=== PATIENT | female | born 1960 | race Caucasian/White ===

== ENCOUNTER 2020-04-21 14:56 | Outpatient (REF) | payer OTHER, SELFPAY ==
--- NOTE | 2020-04-21 | US_ITS ---
EXAMINATION: US DIAGNOSTIC ULTRASOUND BREAST, RIGHT CLINICAL INFORMATION: Six-month follow up question fat necrosis. COMPARISON: September 15, 2019 and studies dating back to September 07, 2011. TECHNIQUE: Ultrasound of the breast is performed with real-time linares scale imaging and color Doppler. FINDINGS: Right breast ultrasound again demonstrates a stable approximately 8 x 7 mm heterogeneous echotexture structure with hyperechoic outer rim and hypoechoic central region with some sound shadowing and again with the appearance of fat necrosis. Results are discussed with the patient at time of visit. US/US breast RT limited IMPRESSION: There are no significant changes from prior study. Stable probably region of fat necrosis right breast. ASSESSMENT: BI-RADS 2: Benign RECOMMENDATION: Routine annual mammography screening due in 12 months.
--- NOTE | 2020-04-21 | US_ITS ---
EXAMINATION: US DIAGNOSTIC ULTRASOUND BREAST, LEFT CLINICAL INFORMATION: Question increasing density of left breast lesion upper outer aspect. COMPARISON: Mammography of same day and studies dating back to July 12, 2008. TECHNIQUE: Ultrasound of the breast is performed with real-time linares scale imaging and color Doppler. FINDINGS: Left breast ultrasound examination targeted to the upper outer aspect performed. At the 2:00 position approximately 9 cm from nipple there is an isoechoic circumscribed structure measuring approximately 6 x 7 x 4 mm in size without distal sound shadowing which is wider than it is tall and without internal vascularity. At approximately 2:00 position 5 cm from nipple there is a bilobed hypoechoic structure with some increased through sound transmission and no internal vascularity. No distal sound shadowing. The lesion is wider than it is tall. This does not have the appearance of an abnormal lymph node. Results are discussed with the patient at time of visit. US/US breast LT limited IMPRESSION: There are no significant changes from prior study. Benign-appearing stable in size left breast densities. ASSESSMENT: BI-RADS 2: Benign RECOMMENDATION: Routine annual mammography screening due in 12 months. .
--- NOTE | 2020-04-21 15:03 | MM_ITS ---
EXAMINATION: MM DIAGNOSTIC DIGITAL BREAST TOMOSYNTHESIS, BILATERAL US BREAST TARGETED, BILATERAL CLINICAL INFORMATION: Right breast followup of density. Screening left breast study. The lifetime risk of breast cancer based on the Tyrer-Cuzick Model is 4.8%. COMPARISON: Mammography: 09/15/2019 and studies dating back to 04/22/2006. TECHNIQUE: Digital breast tomosynthesis is performed in both the craniocaudal and mediolateral oblique views along with computer-aided detection (CAD). Synthesized 2D images are generated from the tomosynthesis. Bilateral targeted breast ultrasound. FINDINGS: There are scattered areas of fibroglandular density (ACR BI-RADS breast composition Category b). There is a stable parenchymal pattern within the right breast with no significant change of density within the anterior lateral aspect of the right breast. No new abnormal dominant mass or suspicious grouping of microcalcifications identified. Within the left breast there are again noted to be two densities about the upper outer aspect however the more proximal one appears denser than on prior studies and with a smaller notch than seen previously and if this is a lymph node there may be thickened cortex. The smaller deeper one measures approximately 5 x 4 mm in size with the more proximal question denser lesion measuring 9 x 5 mm in size. No new abnormal dominant mass or suspicious grouping of microcalcifications identified. Right breast ultrasound again demonstrates a stable approximately 8 x 7 mm heterogeneous echotexture structure with hyperechoic outer rim and hypoechoic central region with some sound shadowing and again with the appearance of fat necrosis. Left breast ultrasound examination targeted to the upper outer aspect performed. At the 2 o'clock position approximately 9 cm from the nipple there is an isoechoic circumscribed structure measuring approximately 6 x 7 x 4 mm in size without distal sound shadowing which is wider than it is tall and without internal vascularity. At approximately 2 o'clock position 5 cm from nipple there is a bilobed hypoechoic structure with some increased through sound transmission and no internal vascularity. No distal sound shadowing. The lesion is wider than it is tall. This does not have the appearance of an abnormal lymph node. Results are discussed with the patient at time of visit. MM/MM tomosynthesis diagnostic BI IMPRESSION: There are no significant changes from prior study. Stable probably region of fat necrosis right breast. Benign-appearing stable in size left breast densities. ASSESSMENT: BI-RADS 2: Benign RECOMMENDATION: Routine annual mammography screening due in 12 months. This patient's information was entered into a reminder system with a target due date for their next mammogram.
== END 2020-04-21 14:57 | disposition home or self-care (01) ==
LOC: HO.MAMMO 14:56
PROVIDERS: Visit Provider Internal Medicine
DX: R92.2 Inconclusive mammogram (principal)
CPT/HCPCS: 76642; 77062; 77066

== ENCOUNTER 2020-05-21 07:14 | Outpatient (REF) | payer OTHER, SELFPAY ==
[2020-05-21 07:56] LABS: MANUAL DIFF FLAG NO
[2020-05-21 08:01] LABS: Basophils Percent Auto 0.6 % (0-2); Eosinophils Absolute Auto 0.3 X10*3/uL (0.0-0.4); Eosinophils Percent Auto 5.1 % (0-4); Hematocrit 44.1 % (37-47); Hemoglobin 14.1 g/dl (12.0-16.0); Imm Gran Abs Auto 0.01 X10*3/uL (0.00-0.03); Imm Gran Pct Auto 0.2 % (0.0-0.4); Lymphocytes Absolute Auto 1.8 X10*3/uL (1.2-4.9); Lymphocytes Percent Auto 28.6 % (20-40); Mean Corpuscular Hemoglobin 28.8 pg (27.0-33.0); Mean Corpuscular Volume 90.2 fL (80-98); Mean Platelet Volume 9.5 fL (9.4-12.3); Monocytes Absolute Auto 0.6 X10*3/uL (0.1-1.2); Monocytes Percent Auto 10.1 % (2-11); Neutrophils Absolute Auto 3.5 X10*3/uL (2.0-8.3); Neutrophils Percent Auto 55.4 % (45-73); Platelet Count 334 X10*3/uL (160-400); Red Blood Count 4.89 X10*6/uL (4.20-5.50); White Blood Count 6.3 X10*3/uL (4.8-10.8)
[2020-05-21 08:16] LABS: Glucose Urine UA NEG (NEG); Leukocyte Esterase Urine NEG (NEG); Nitrite Urine NEG (NEG); PH 5.5 (5.0-8.0); Specific Gravity - Urine >= 1.030 (1.005-1.025); Urine Blood 1+ (NEG); Urine Ketones NEG (NEG); Urine Protein NEG (NEG-TRACE)
[2020-05-21 08:27] LABS: Alanine Aminotransferase 16 U/L (0-31); Alkaline Phosphatase 89 U/L (39-117); Anion Gap 13 (12-20); Aspartate Amino Transferase 18 U/L (5-31); Bilirubin Total 1.1 mg/dL (0.0-1.0); Blood Urea Nitrogen 16 mg/dL (9-16); Carbon Dioxide 26 mmol/L (22-29); Chloride 105 mmol/L (96-108); Cholesterol 203 mg/dL; Estimated Glomerular Filt Rate > 60; Glucose Fasting 99 mg/dL (60-99); HDL Cholesterol 62 mg/dL; LDL Cholesterol Calculated 128 mg/dl; Potassium 4.4 mmol/L (3.3-5.1); Sodium 140 mmol/L (135-145); Triglycerides 67 mg/dL
[2020-05-21 08:45] LABS: Appearance Urine CLEAR; Color Urine YELLOW
[2020-05-21 08:47] LABS: Mucus Urine TRACE /LPF; WBC Urine 0-2 /HPF (0-4)
[2020-05-21 08:49] LABS: TSH reflex Free T4 1.42 uIU/mL (0.32-4.0); Vitamin D 25-OH Total 29.6 ng/mL (>30)
== END 2020-05-21 07:15 | disposition home or self-care (01) ==
LOC: HO.LAB 07:14
PROVIDERS: PCP Internal Medicine; Visit Provider Internal Medicine
DX: Z00.00 Encounter for general adult medical examination without abnormal findings (principal); I10 Essential (primary) hypertension; E78.00 Pure hypercholesterolemia, unspecified; E66.9 Obesity, unspecified; E55.9 Vitamin D deficiency, unspecified
CPT/HCPCS: 36415; 80053; 80061; 81001; 81003; 82306; 84443; 85025

== ENCOUNTER 2020-07-27 16:59 | Outpatient (REF) | payer OTHER, SELFPAY ==
--- NOTE | ~2020-07-27 | XR_ITS ---
EXAMINATION: XR KNEE, RIGHT CLINICAL INFORMATION: Knee pain. COMPARISON: 06/30/2011 TECHNIQUE: Four views of the right knee. FINDINGS: No fracture or joint effusion. Alignment is anatomic. Marginal osteophytes in 3 compartments. Apparent patellofemoral joint space narrowing. No abnormal soft tissue calcification. Patellar enthesopathy at the insertions of the quadriceps and patellar tendon. Small effusion. XR/XR knee RT 4V IMPRESSION: Mild tricompartment arthritis. Small effusion. No acute osseous abnormality is seen.
== END 2020-07-27 17:00 | disposition home or self-care (01) ==
LOC: HO.HMGCX 16:59
PROVIDERS: PCP Internal Medicine; Visit Provider Nurse Practitioner Family
DX: M25.561 Pain in right knee (principal)
CPT/HCPCS: 73564

== ENCOUNTER → 2020-11-01 09:26 | Outpatient (BNVA) | payer OTHER, SELFPAY | PROVIDERS: PCP Internal Medicine; Visit Provider Advanced Practice Midwife ==

== ENCOUNTER 2021-04-24 14:30 | Outpatient (REF) | payer OTHER, SELFPAY ==
--- NOTE | ~2021-04-24 | MM_ITS ---
EXAMINATION: MM SCREENING DIGITAL BREAST TOMOSYNTHESIS, BILATERAL CLINICAL INFORMATION: Screening. Asymptomatic. Family history breast cancer, mother. The lifetime risk of breast cancer based on the Tyrer-Cuzick Model is 10%. COMPARISON: Mammography: 04/21/2020, 09/15/2019, 03/17/2019 (BI-RADS 0), 02/02/2017, 01/21/2016; targeted ultrasound right breast 04/21/2020, 09/15/2019, 03/17/2019. TECHNIQUE: Digital breast tomosynthesis is performed in both the craniocaudal and mediolateral oblique views along with computer-aided detection (CAD). Synthesized 2D images are generated from the tomosynthesis. FINDINGS: There are scattered areas of fibroglandular density (ACR BI-RADS breast composition Category b). There are scattered fibronodular asymmetric densities similar to prior studies. The left breast shows no developing density or interval mass or architectural abnormality. There are no abnormal calcifications. The axilla and skin contours are unremarkable. Right breast has focal asymmetric density anterior 7:00 position, more conspicuous, possibly larger and increased attenuation. Margins are ill-defined on MLO tomography. This have been under surveillance in past. Recommend recall for additional imaging and ultrasound. MM/MM tomosynthesis screening BI IMPRESSION: 1. Right: Focal asymmetric density anterior 7:00 position, more conspicuous, suspect change from prior studies. 2. Left: No mammographic evidence of malignancy. ASSESSMENT: BI-RADS 0: Incomplete - Need Additional Imaging Evaluation RECOMMENDATION: 1. Additional views of the right breast (spot CC, spot ML). 2. Targeted ultrasound right breast. 3. Radiology department staff will contact the patient for additional imaging. This patient's information was entered into a reminder system with a target due date for their next mammogram.
== END 2021-04-24 14:31 | disposition home or self-care (01) ==
LOC: HO.MAMMO 14:30
PROVIDERS: PCP Internal Medicine; Visit Provider Internal Medicine
DX: Z12.31 Encounter for screening mammogram for malignant neoplasm of breast (principal)
CPT/HCPCS: 77063; 77067

== ENCOUNTER 2021-05-16 13:44 | Outpatient (REF) | payer OTHER, SELFPAY ==
--- NOTE | ~2021-05-16 | MM_ITS ---
EXAMINATION: MM DIAGNOSTIC DIGITAL BREAST TOMOSYNTHESIS, RIGHT US DIAGNOSTIC ULTRASOUND BREAST, RIGHT CLINICAL INFORMATION: Recall from screening for focal asymmetric density anterior 7:00 right breast, more conspicuous, possibly larger. COMPARISON: Mammography: 04/24/2021, 04/21/2020, 09/15/2019, 03/17/2019, 03/07/2019, 03/01/2018; targeted right breast ultrasound 04/21/2020, 09/15/2019, 03/17/2019. TECHNIQUE: Digital breast tomosynthesis is performed. 2D images are generated from the tomosynthesis. The following views are obtained: Spot CC, spot ML x2. Ultrasound right breast is targeted to the lower anterior breast using grayscale imaging and color Doppler without and with harmonics. Additional imaging also performed right axilla. FINDINGS: There are scattered areas of fibroglandular density (ACR BI-RADS breast composition Category b). The additional views demonstrate lobulated mass with ill-defined margins anterior 7:00 position measuring approximately 1.0 x 0.8 cm. This represents change from prior studies. Ultrasound right breast demonstrates a 1 cm heterogeneous lesion with peripheral hyperechogenicity and irregular central echogenicity. There is color flow seen extending into the lesion. Additional imaging right axilla demonstrates no lymphadenopathy. Results are discussed with the patient at time of visit. Ultrasound-guided core biopsy of the right breast mass is recommended. MM/MM tomosynthesis added views R IMPRESSION: 1 cm lobulated mass with ill-defined margins and anterior 7:00 position. ASSESSMENT: BI-RADS 4: Suspicious RECOMMENDATION: Ultrasound-guided core biopsy right breast mass.
== END 2021-05-16 13:45 | disposition home or self-care (01) ==
LOC: HO.MAMMO 13:44
PROVIDERS: PCP Internal Medicine; Visit Provider Internal Medicine
DX: R92.2 Inconclusive mammogram (principal)
CPT/HCPCS: 76642; 77061; 77065

== ENCOUNTER 2021-05-19 09:03 | Outpatient (REF) | payer OTHER, SELFPAY ==
--- NOTE | ~2021-05-19 | MM_ITS ---
EXAMINATION: ULTRASOUND GUIDED CORE BIOPSY BREAST, RIGHT POST PROCEDURE DIGITAL MAMMOGRAM, RIGHT CLINICAL INFORMATION: Lobulated mass with ill-defined margins lower outer quadrant right breast measuring approximately 1.1 cm. COMPARISON: Mammography and and targeted right breast ultrasound 05/16/2021, mammography 04/24/2021. FINDINGS: Proper informed consent is obtained from the patient after discussion of the procedure, potential risks and complications, and alternatives. Patient was given an opportunity for questions. The patient appeared to understand. The patient consented to the procedure and signed the consent form. GUIDANCE: Ultrasound-guided; aseptic technique. LESION: 1.1 cm heterogeneous lesion with peripheral hyperechogenicity and well-defined margins on mammography. APPROACH: Lateral medial. ANESTHESIA: 10 mL carbonated 1% lidocaine. DERMATOTOMY: Single skin dayana dermatotomy performed. NEEDLE: 14-gauge Achieve core biopsy device with 13.5-gauge co-axial guide needle. CORES: 6. CLIP: HydroMARK; shape: butterfly. POST PROCEDURE UNILATERAL DIGITAL MAMMOGRAM: The post biopsy mammogram is performed in separate room using separate digital mammography equipment from the biopsy procedure. CC and MLO views are obtained. There are scattered areas of fibroglandular density (breast composition category: b). The clip marker is in position and overlies the nodule noted on recent mammography. No gross hematoma. The patient tolerated the procedure well. No immediate complications. Home instructions reviewed with the patient. Final pathology results are pending. MM/MM tomosynthesis diagnostic RT IMPRESSION: 1. Status post ultrasound-guided core biopsy right breast. 2. Clip placed: HydroMARK; shape: butterfly. 3. Pathology pending. An addendum report will be issued.
[2021-05-19] MEDS: Lidocaine HCl 1 % 20 ML VIAL 9 ML SUBCUT (11:38)
[2021-05-19] MEDS: Sodium Bicarbonate 8.4% 50 MEQ/50 ML VIAL SUBCUT (11:40)
== END 2021-05-19 09:04 | disposition home or self-care (01) ==
LOC: HO.MAMMO 09:03
PROVIDERS: Visit Provider Surgery
DX: R92.8 Other abnormal and inconclusive findings on diagnostic imaging of breast (principal)
CPT/HCPCS: 19083; 77061; 77065; 88305; 88341; 88342; 88360

== ENCOUNTER → 2021-05-26 10:41 | Outpatient (BNVA) | payer OTHER, SELFPAY | PROVIDERS: PCP Internal Medicine; Referring Provider Internal Medicine; Visit Provider Surgery ==

== ENCOUNTER 2021-06-05 06:13 | Day surgery (SDC) | payer OTHER, SELFPAY ==
[2021-06-05] VITALS (10 sets, daily range): BP systolic 105–151; BP diastolic 57–75; PULSE 62–76; RESP 10–20; TEMP 36.2–36.6; O2SAT 95–100; BMI 32.8
--- NOTE | ~2021-06-05 | MM_ITS ---
EXAMINATION: MM MAMMOGRAM GUIDED NEEDLE LOCALIZATION BREAST, RIGHT MM NEEDLE LOCALIZATION SPECIMEN FROM THE RIGHT BREAST CLINICAL INFORMATION: Recent diagnosis invasive ductal cancer outer right breast. COMPARISON: Mammography 05/16/2021, 05/19/2021, ultrasound right breast 05/16/2021, ultrasound-guided right breast biopsy 05/19/2021. TECHNIQUE NEEDLE LOC: Proper informed consent is obtained from the patient after discussion of the procedure, potential risks and complications, and alternatives including declining the procedure today. Patient was given an opportunity for questions. The patient appeared to understand. The patient consented to the procedure and signed the consent form. GUIDANCE: Digital mammography. APPROACH: Lateral Medial. TARGET: Nodular asymmetry with HydroMARK butterfly shaped clip marker. ANESTHESIA: Carbonated lidocaine 1%: 6 mL. LOCALIZATION MARKER: [place] [employer]. 7.5 cm length. The skin is prepped and local anesthesia administered. The needle is positioned and position assessed with mammography. The wire is hooked into position. [place] needle protector placed. The patient tolerated the procedure well and had no immediate complication. Following the procedure, 4% lidocaine ointment was administered to the right areola and covered with Tegaderm in anticipation of nuclear lymphoscintigraphy injection for sentinel lymph node mapping. Procedure results called to medical transcriber (Kait) for Dr. Mccarty prior to surgery. TECHNIQUE SPECIMEN RADIOGRAPH: Imaging of the excised specimen is performed using digital mammography in 1 view. FINDINGS SPECIMEN RADIOGRAPH: There is an overlying surgical, which causes artifact. The specimen shows the distal needle and distal hookwire are delivered intact within the specimen. The biopsy clip marker is identified in the specimen adjacent to the localization needle. There are fibroglandular densities in the specimen predominantly related to the known lesion. Results were called to Dr. Simón Mccarty in the operating room at the time of imaging. MM/MM needle loc RT IMPRESSION: 1. Status post right breast needle localization with wire hooked into position. 2. Post operative specimen radiograph obtained.
--- NOTE | ~2021-06-05 | NM_ITS ---
EXAMINATION: NM LYMPHOSCINTIGRAPHY BREAST, RIGHT CLINICAL INFORMATION: Invasive ductal cancer right breast. COMPARISON: Mammography 04/24/2021, 05/16/2021, 05/19/2021, needle localization 06/05/2021, ultrasound-guided right breast biopsy 05/19/2021. TECHNIQUE: Informed consent was obtained prior to the exam. Lidocaine gel administered to areola within 60 minutes of the procedure. Technetium 99m-Lymphoseek 0.5 mCi was divided into 4 syringes with intradermal administration at 4 quadrants around the areola. The patient tolerated the procedure well. Imaging is performed at 20 minutes, 35 minutes, and 60 minutes postinjection. There are total of 12 views. FINDINGS: There is strong activity around the areola. On the delayed images, there is a faint focus of activity low right axillary tail, possibly adjacent satellite focus. NM/NM sentinel node w imaging IMPRESSION: Status post breast radionuclide lymphoscintigraphy for sentinel lymph node mapping.
[2021-06-05] MEDS: Lidocaine HCl 1 % 20 ML VIAL 9 ML SUBCUT (09:22)
[2021-06-05] MEDS: Sodium Bicarbonate 8.4% 50 MEQ/50 ML VIAL SUBCUT (09:23)
--- NOTE | 2021-06-05 10:57 | P.CONAN_ITS ---
FORM[facility]LY [facility] Active Problems Active Problems: All Active Problems (Updated 06/02/21 @ 11:34 by Jus Gallardo RN) Invasive ductal carcinoma of right breast (Acute) Abnormal ultrasound of breast (Acute) Well woman exam with routine gynecological exam (Acute) Knee pain (Acute) Obesity (BMI 30-39.9) (Acute) Vitamin D deficiency (Acute) Pure hypercholesterolemia (Acute) Benign essential hypertension (Acute) Past Medical History Medical History Benign essential hypertension Obesity (BMI 30-39.9) Pure hypercholesterolemia Vitamin D deficiency Family History Family History Father Medical history unknown Mother Diabetes Hypertension Maternal Aunt Breast cancer Surgical History Surgical History History of carpal tunnel release History of cholecystectomy Status post colonoscopy (~10/22/11) History of Problems with Anesthesia: No Social History Social History Alcohol intake: current Alcohol intake frequency: holidays/special occasions only Alcohol type: wine Patient Tobacco Use Status: Never used Tobacco Use of substances other than those prescribed or required for medical reasons: No Are you DNR?: No Advance Directives: No Advance Directives Information Provided: Yes Gender identity: Female Meds Allergies Allergy/AdvReac Type Severity Reaction Status Date / Time aspirin [ASPIRIN] Allergy Mild GI UPSET, Verified 06/05/21 06:24 Stomach upset morphine [Morphine] Allergy Mild VOMITING Verified 06/05/21 06:24 Active Medications: Current Medications Lactated Ringer's (Lr) 1,000 mls @ 100 mls/hr IVCONT .Q10H [facility] Home Medications Medication Instructions Recorded Confirmed Last Taken Type ibuprofen 600 mg tablet 600 mg PO Q8H PRN tab 05/17/20 05/19/21 Unknown History cholecalciferol (vitamin D3) 25 25 mcg PO DAILY 07/27/20 05/26/21 Unknown History mcg (1,000 unit) capsule Exam Exam Date and Time: June 05, 2021 1057 Height,Weight and Vital Signs: Height 5 ft 3 in Weight 83.915 kg Last Vital Signs Temp 97.8 F 06/05/21 06:47 Pulse 64 06/05/21 06:47 Resp 17 06/05/21 06:47 BP 138/68 06/05/21 06:47 Pulse Ox 96 06/05/21 06:47 Airway Mallampati Class: II TM Dist: >3cm Neck ROM: Full Loose/Missing/Broken Teeth: No Heart: RRR Lungs: CTA Assessment and Plan Assessment Anesthesia Assessment: Anesthesia Plan Discussed and Chart Reviewed Final Anesthetic Review History of Problems with Anesthesia: No NPO: Yes ASA Class: II Final Preanesthetic Review: Meds/Allgs Chart Reviewed, Consent Obtained/Reviewed and Anes Risks/Benef Reviewed Patient Risk: Low Procedure Risk: Low Anesthetic Plan Anesthetic Plan: GA Disposition: Standard PACU
--- NOTE | 2021-06-05 11:45 | MHC.SHP ---
Pre-Procedural Eval Section A Date of Service: 06/05/21 The patient is an INPATIENT: No Changes since office visit: Yes Patient answered all questions; No Cold of Flu in the past 2 weeks, No New Medical Problems and No Changes in Medication The History & Physical has been completed within 30 days and I have reviewed it.: Yes Section B Chief Complaint: Abnormal ultrasound of breast Allergies: Allergies Allergy/AdvReac Type Severity Reaction Status Date / Time aspirin [ASPIRIN] Allergy Mild GI UPSET, Verified 06/05/21 06:24 Stomach upset morphine [Morphine] Allergy Mild VOMITING Verified 06/05/21 06:24 Plan Diagnosis/Plan: Unchanged I have reviewed the history and physical and performed a pertinent physical examination on my patient. No changes have occurred unless specified.
[2021-06-05] MEDS: Scopolamine 1.5 MG PATCH.TD.3 EAR-BEHIND (11:54)
--- NOTE | 2021-06-05 13:37 | P.OP_ITS ---
Operative Note Operative Note Date of Service: 06/05/21 Narrative: Preoperative diagnosis:Invasive ductal carcinoma right breast Postoperative diagnosis: same Procedure: right breast lumpectomy with needle localization, right sentinel node biopsy Surgeon: Simón Mccarty MD Senior Research Consultant: Erna Braun PA-C Anesthesia: general LMA Indications for procedure: 61-year-old female patient found to have a new density in right breast on mammogram confirmed on ultrasound. She subsequent underwent ultrasound-guided core biopsy which revealed invasive ductal carcinoma. She presents today for a lumpectomy with needle localization, sentinel node biopsy. Operative findings: Specimen x-ray confirmed the lesion and clip within the specimen x-ray. Gross pathology revealed a palpable density with adequate margins. Five sentinel nodes were identied and removed. Specimen: Right breast lumpectomy, sentinel node 1 through 5 Estimated blood loss: 5 mL Complications: none Procedure details: patient was brought to the OR placed in a supine position. After administering general anesthesia the patient's right breast and axilla were prepped with ChloraPrep and draped in a sterile fashion. A surgical time- out was called and the consent confirmed. Patient received preoperative antibiotics and Venodyne boots were in place. Local anesthesia consisting of Sensorcaine 0.5% was infiltrated and a periareolar location at approximately the 9 - 6 o'clock position. Curvilinear incision was made at the edge of the areola with a scalpel, carried down through subcutaneous tissue. Superior and inferior skin flaps were then created. Core of tissue surrounding the localizing needle was then obtained beginning at the superior margin working from the medial to lateral margins followed by the inferior margin and deep margin. The wire was cut at its entry point. lesion was then excised and sent to pathology for further examination. Attention was then directed to the right axilla. The gamma probe was used to identify the area of increased activity. A curvilinear incision was then made at the lower aspect of the axilla and carried down through subcutaneous tissue past the clavipectoral fascia into the axillary compartment. A total of 5 sentinel nodes were identified individually excised. These were sent as sentinel node 1 through 5. No other palpable lymph nodes were identified. No other radioactive nodes were identified. Wounds were irrigated with saline solution. Clavipectoral fascia was then closed using interrupted 3-0 Polysorb sutures. Dermis was closed using interrupted 3-0 Polysorb sutures. Skin was then closed using a running subcuticular 4-0 Polysorb suture . Once the lumpectomy was confirmed as adequate the deep breast tissue was reapproximated using interrupted 3-0 Polysorb sutures. Dermis was reapproximated using interrupted 3-0 Polysorb sutures. Skin was then closed using a running subcuticular 4-0 Polysorb suture. Steri-Strips 2 x 2 gauze and Tegaderm were then applied. The patient tolerated the procedure well. Sponge, instrument, and needle counts reported as correct. She was transferred to PACU in stable condition. Breast Warrior Node Biopsy Substrate(s) used for sentinel node biopsy in the non-neoadjuvant setting: Radiotracer Substrate(s) used for sentinel node biopsy in the neoadjuvant setting: N/A All colored nodes or non-colored nodes present at the end of a dye filled lymphatic channel were removed, if dye was used as the substrate for localization: N/A All significantly radioactive nodes were removed, if radionuclide was used as the substrate for localization: Yes All palpably suspicious nodes were removed, if present: Yes If clips were placed in pathology-involved nodes, those nodes were identified and removed: N/A General Surg. - Synoptic Notes Breast Warrior Node Biopsy Substrate(s) used for sentinel node biopsy in the non-neoadjuvant setting: Radiotracer Substrate(s) used for sentinel node biopsy in the neoadjuvant setting: N/A All colored nodes or non-colored nodes present at the end of a dye filled lymphatic channel were removed, if dye was used as the substrate for localization: N/A All significantly radioactive nodes were removed, if radionuclide was used as the substrate for localization: Yes All palpably suspicious nodes were removed, if present: Yes If clips were placed in pathology-involved nodes, those nodes were identified and removed: N/A
== END 2021-06-05 16:04 | disposition home or self-care (01) ==
PROVIDERS: PCP Internal Medicine; Visit Provider Surgery
PROC: (CPT 19301; principal; 2021-06-05 11:30)
PROC: (CPT 19301; 2021-06-05 11:30)
DX: C50.511 Malignant neoplasm of lower-outer quadrant of right female breast (principal); Z17.0 Estrogen receptor positive status [ER+]; I10 Essential (primary) hypertension; E78.00 Pure hypercholesterolemia, unspecified; E55.9 Vitamin D deficiency, unspecified; Z79.899 Other long term (current) drug therapy; Z88.8 Allergy status to other drugs, medicaments and biological substances
CPT/HCPCS: 19301; 38525; 19281; 78195; 88307; 88329; 88341; 88342; A4648; A9520; J0690; J1100; J2250; J2405; J3010

== ENCOUNTER → 2021-06-13 12:47 | Outpatient (BNVA) | payer OTHER, SELFPAY | PROVIDERS: PCP Internal Medicine; Referring Provider Internal Medicine; Visit Provider Surgery | DX: C50.911 Malignant neoplasm of unspecified site of right female breast (principal); Z48.3 Aftercare following surgery for neoplasm | CPT/HCPCS: 99212 ==

== ENCOUNTER 2021-07-04 08:37 | Outpatient (REF) | payer OTHER, SELFPAY ==
--- NOTE | ~2021-07-04 | MM_ITS ---
EXAMINATION: BONE DENSITOMETRY CLINICAL INDICATION: Osteopenia. COMPARISON: Previous BD dated 05/23/2018 and baseline BD dated 10/19/2011. TECHNIQUE: Using a [employer] DXA System (software version: 13.1) manufactured by [employer], dual-energy x-ray absorptiometry was performed of the lumbar spine and left hip. The images are of good technical quality. Summary results are attached. FINDINGS: AP SPINE L1-L4: Current: BMD 1.090 g/cm2, Z-score -0.2, T-score -0.7, normal, 1.5% increase from previous, 5.1% decrease from baseline (<5% change is not significant). Prior: BMD 1.074 g/cm2. Baseline: BMD 1.148 g/cm2. LEFT FEMUR, NECK: Current: BMD 0.907 g/cm2, Z-score -0.1, T-score -0.9, normal. Prior: BMD 0.893 g/cm2. Baseline: BMD 0.977 g/cm2. LEFT FEMUR, TOTAL: Current: BMD 0.946 g/cm2, Z-score 0.0, T-score -0.5, normal, 2.2% increase from previous, 9.0% decrease from baseline (<5% change is not significant). Prior: BMD 0.926 g/cm2. Baseline: BMD 1.040 g/cm2. IDENTIFIED RISK FACTORS: Rheumatoid arthritis, menopause. HISTORY OF FRACTURE: None listed. MEDICATIONS: Vitamin D. MM/XR DEXA axial skeleton IMPRESSION: 1. DIAGNOSIS: Normal bone density based on the lowest T-score value of -0.9 in the femoral neck applying World Health Organization criteria. 2. 10-YEAR FRACTURE RISK PREDICTION, FRAX: According to the guidelines, FRAX calculation should only be performed on patients in the osteopenia bone density category. Therefore, FRAX was not performed on this patient. 3. Treatment Recommendations: NOF guidelines recommend consideration for treatment in postmenopausal women and men age 50 and older presenting with the following: -A hip or vertebral (clinical or morphometric) fracture. -T-score less than or equal to -2.5 at the femoral neck or spine after appropriate evaluation to exclude secondary causes. -Low bone mass at the hip or spine and a 10-year fracture probability by FRAX of greater than or equal to 3% for hip fracture or greater than or equal to 20% for major osteoporotic fracture based on the [place] adapted WHO algorithm. 4. Other Recommendations: All treatment decisions require clinical judgment and consideration of individual patient factors, including patient preferences, comorbidities, previous drug use, risk factors not captured in the FRAX model (e.g. frailty, falls, vitamin D deficiency, increased bone turnover, interval significant decline in bone density) and possible under or overestimation of fracture risk by FRAX. FUTURE SCAN RECOMMENDATION: People with diagnosed cases of osteoporosis or at high risk for fracture should have regular bone mineral density tests. For patients eligible for Medicare, routine testing is allowed once every 2 years. The testing frequency can be increased to one year for patients who have rapidly progressing disease, those who are receiving or discontinuing medical therapy to restore bone mass, or have additional risk factors.
== END 2021-07-04 08:38 | disposition home or self-care (01) ==
LOC: HO.MAMMO 08:37
PROVIDERS: PCP Internal Medicine; Visit Provider Internal Medicine Medical Oncology
DX: Z13.820 Encounter for screening for osteoporosis (principal); M85.80 Other specified disorders of bone density and structure, unspecified site; Z78.0 Asymptomatic menopausal state
CPT/HCPCS: 77080

== ENCOUNTER → 2021-07-04 15:00 | Outpatient (BNV) | payer BC, OTHER, SELFPAY | PROVIDERS: PCP Internal Medicine; Referring Provider Surgery; Visit Provider Internal Medicine Medical Oncology | DX: C50.911 Malignant neoplasm of unspecified site of right female breast (principal) | CPT/HCPCS: 99213; 99214 ==

== ENCOUNTER → 2021-07-18 13:50 | Outpatient (BNVA) | payer OTHER, SELFPAY | PROVIDERS: PCP Internal Medicine; Referring Provider Internal Medicine; Visit Provider Surgery | DX: Z13.89 Encounter for screening for other disorder (principal) ==

== ENCOUNTER 2022-03-27 08:54 | Day surgery (SDC) | payer OTHER, SELFPAY ==
[2022-03-20 15:47] VITALS: BMI 34.9
--- NOTE | 2022-03-23 12:41 | HO.ANESPROP2 ---
Documented by User: Kait Renae NP 03/23/22 12:42 HPI - Anesthesia Eval Consult details Narrative: 61yo F for Colonoscopy PMFSH Active Problems Active Problems: All Active Problems (Updated 01/02/22 @ 08:09 by Hui Johnson MD) Encounter for screening colonoscopy (Acute) Cervical cancer screening (Acute) Physical exam (Acute) Invasive ductal carcinoma of right breast (Acute) Abnormal ultrasound of breast (Acute) Well woman exam with routine gynecological exam (Acute) Knee pain (Acute) Obesity (BMI 30-39.9) (Acute) Vitamin D deficiency (Acute) Pure hypercholesterolemia (Acute) Benign essential hypertension (Acute) Past Medical History Medical History Benign essential hypertension Breast cancer Obesity (BMI 30-39.9) Pure hypercholesterolemia Vitamin D deficiency Family History Family History Father Medical history unknown Mother Diabetes Hypertension Maternal Aunt Breast cancer Surgical History Surgical History History of carpal tunnel release History of cholecystectomy History of lumpectomy of right breast (06/05/21) Status post colonoscopy (~10/22/11) History of Problems with Anesthesia: No Social History Social History Household Members: Family and Other Household Members Other:: Grandchildren 3 Housing: House Are you a primary professional healthcare representative to a significant other at home: No Do you presently have visiting nurse or other home services: No Alcohol intake: current Alcohol intake frequency: holidays/special occasions only Alcohol type: wine Patient Tobacco Use Status: Never used Tobacco e-Cigarette/Vaping Use: Never Used Second Hand Smoke Exposure: No Use of substances other than those prescribed or required for medical reasons: No Are you DNR?: No Advance Directives: No Advance Directives Information Provided: Yes Advance Directives on File: No service: No Current occupational status: employed 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 Current occupational exposures/hazards: No Gender identity: Female Cognitive needs: No Hearing needs: No Vision needs: No Meds Allergies Allergy/AdvReac Type Severity Reaction Status Date / Time aspirin [ASPIRIN] Allergy Mild GI UPSET, Verified 02/27/22 15:06 Stomach upset morphine [Morphine] Allergy Mild VOMITING Verified 02/27/22 15:06 Home Medications Medication Instructions Recorded Confirmed Last Taken Type ibuprofen 600 mg tablet 600 mg PO Q8H PRN pain 05/17/20 03/27/22 Unknown History Exam Exam Date and Time: March 23, 2022 1241 Height,Weight and Vital Signs: Height 5 ft 3 in Weight 89.358 kg Pertinent Lab Results Pertinent Lab Results: Laboratory Tests 01/02/22 01/02/22 08:23 08:23 WBC 5.8 Hgb 14.1 Hct 43.2 Plt Count 306 Sodium 134 L Potassium 4.1 Chloride 99 Carbon Dioxide 25 BUN 12 Creatinine 0.80 Assessment and Plan Assessment Anesthesia Assessment: Chart Reviewed Final Anesthetic Review History of Problems with Anesthesia: No Documented by User: Kyle Faustin MD 03/27/22 09:52 [facility] Past Medical History Medical History Benign essential hypertension Breast cancer Obesity (BMI 30-39.9) Pure hypercholesterolemia Vitamin D deficiency Family History Family History Father Medical history unknown Mother Diabetes Hypertension Maternal Aunt Breast cancer Family history of problems with anesthesia: No Surgical History Surgical History History of carpal tunnel release History of cholecystectomy History of lumpectomy of right breast (06/05/21) Status post colonoscopy (~10/22/11) Social History Social History Household Members: Family and Other Household Members Other:: Grandchildren 3 Housing: House Are you a primary professional healthcare representative to a significant other at home: No Do you presently have visiting nurse or other home services: No Alcohol intake: current Alcohol intake frequency: holidays/special occasions only Alcohol type: wine Patient Tobacco Use Status: Never used Tobacco e-Cigarette/Vaping Use: Never Used Second Hand Smoke Exposure: No Use of substances other than those prescribed or required for medical reasons: No Are you DNR?: No Advance Directives: No Advance Directives Information Provided: Yes Advance Directives on File: No service: No Current occupational status: employed 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 Current occupational exposures/hazards: No Gender identity: Female Cognitive needs: No Hearing needs: No Vision needs: No Meds Allergies Allergy/AdvReac Type Severity Reaction Status Date / Time aspirin [ASPIRIN] Allergy Mild GI UPSET, Verified 02/27/22 15:06 Stomach upset morphine [Morphine] Allergy Mild VOMITING Verified 02/27/22 15:06 Home Medications Medication Instructions Recorded Confirmed Last Taken Type ibuprofen 600 mg tablet 600 mg PO Q8H PRN pain 05/17/20 03/27/22 Unknown History Exam Airway Mallampati Class: II TM Dist: >3cm Neck ROM: Full Loose/Missing/Broken Teeth: Yes Assessment and Plan Assessment Anesthesia Assessment: Anesthesia Plan Discussed Final Anesthetic Review Family History of Problems with Anesthesia: No NPO: Yes ASA Class: II Final Preanesthetic Review: No Changes in Pt Med Stat, Meds/Allgs Chart Reviewed, Consent Obtained/Reviewed and Anes Risks/Benef Reviewed Patient Risk: Low Procedure Risk: Low Anesthetic Plan Anesthetic Plan: MAC: Disposition: Standard PACU
[2022-03-27 09:28] VITALS: BMI 32.4
[2022-03-27 09:42] VITALS: BP 104/72; PULSE 82; RESP 16; TEMP 36.1; O2SAT 97
[2022-03-27] MEDS: Lactated Ringers 1,000 ML 100 ML IVCONT (09:54)
--- NOTE | 2022-03-27 10:40 | MHC.SHP ---
Pre-Procedural Eval Section A Date of Service: 03/27/22 Section B Chief Complaint: screening Details of Present Illness: 61 y.o F here for screening colo Present Medications: see Short Stay Collaborative assessment Medical History: Significant History (Hx of cervical ca, HLD, HTN) Allergies: Allergies Allergy/AdvReac Type Severity Reaction Status Date / Time aspirin [ASPIRIN] Allergy Mild GI UPSET, Verified 02/27/22 15:06 Stomach upset morphine [Morphine] Allergy Mild VOMITING Verified 02/27/22 15:06 Review of Systems Review of Systems Comment: 10 point ROS negative except as above Exam Exam Comment: Gen appear: No acute distress, well nourished HEENT: no icterus Chest: No overt resp distress Abd: soft, nontender, nondistended Psych: Stable affect, answering questions appropriately Neuro: A/Ox3 noted to move all extremities spontaneously Ext: no peripheral edema Plan Diagnosis/Plan: Unchanged I have reviewed the history and physical and performed a pertinent physical examination on my patient. No changes have occurred unless specified. Time Spent With Patient Time: Total time managing care of this patient today ____ minutes.
--- NOTE | 2022-03-27 10:42 | P.OP_ITS ---
Operative Note Operative Note Date of Service: 03/27/22 Narrative: Procedure: Colonoscopy Indication: Screening Endoscopist: Acacia Griffith MD Anesthesia Provider: Dr Dmitriy Rodas Anesthesia type: MAC Instrument: Olympus [id number]-H190L Consent: Indication, risks vs benefits, and alternatives were discussed with the patient who gave written informed consent to proceed. EKG, pulse, pulse oximetry and blood pressure were monitored throughout the procedure. Please see anesthesia flowsheet. Procedure: The patient was brought to the procedure room and placed in the left lateral decubitus position. IV medications were administered by the anesthesia provider in attendance. A digital rectal exam was performed which was normal. The colonoscope was then inserted through the anus and advanced through the colon to the cecum at 75 cm,and terminal ileum. Ileocecal valve and appendiceal orifice were identified. Mucosa was carefully examined under high definition white light as the instrument was slowly withdrawn in a retrograde panoramic fashion. Retroflexion was performed in rectum. The procedure was not difficult. There were no immediate obvious complications. The quality of the prep was BBPS: 3+3+2 = adequate Withdrawal time 10 minutes. Limitations: No limitations. Findings: Mucosa: Normal to cecum and terminal ileum. Protruding lesions: * Medium internal hemorrhoids without stigmata of recent bleeding. Excavated lesions: * Small mouthed scattered diverticuli sigmoid colon. Impression: 1. Normal colon mucosa 2. Mild diverticulosis 3. Internal hemorrhoids Recommendations: - Repeat colonoscopy in 10 years for CRC screening
[2022-03-27 10:47] VITALS: BP 93/62; PULSE 73; RESP 16; TEMP 36.1; O2SAT 95
[2022-03-27 11:02] VITALS: BP 115/68; PULSE 64; RESP 16; TEMP 36.1; O2SAT 99
== END 2022-03-27 11:26 | disposition home or self-care (01) ==
PROVIDERS: PCP Internal Medicine; Visit Provider Internal Medicine
PROC: 0DJD8ZZ Inspection of Lower Intestinal Tract, Via Natural or Artificial Opening Endoscopic (ICD-10-PCS; CPT 45378; principal; 2022-03-27 10:20)
DX: Z12.11 Encounter for screening for malignant neoplasm of colon (principal); K57.30 Diverticulosis of large intestine without perforation or abscess without bleeding; K64.8 Other hemorrhoids; I10 Essential (primary) hypertension; E78.5 Hyperlipidemia, unspecified; C50.911 Malignant neoplasm of unspecified site of right female breast; E55.9 Vitamin D deficiency, unspecified; Z92.3 Personal history of irradiation; Z85.41 Personal history of malignant neoplasm of cervix uteri; E66.9 Obesity, unspecified; Z68.34 Body mass index [BMI] 34.0-34.9, adult; Z79.811 Long term (current) use of aromatase inhibitors; Z79.899 Other long term (current) drug therapy; Z88.8 Allergy status to other drugs, medicaments and biological substances
CPT/HCPCS: 45378

== ENCOUNTER 2022-05-05 07:28 | Outpatient (REF) | payer OTHER, SELFPAY | END 2022-05-05 07:29 | disposition home or self-care (01) | LOC: HO.MAMMO 07:28 | PROVIDERS: PCP Internal Medicine; Visit Provider Internal Medicine | DX: Z13.89 Encounter for screening for other disorder (principal) ==

== ENCOUNTER 2022-05-16 14:59 | Outpatient (REF) | payer OTHER, SELFPAY ==
--- NOTE | ~2022-05-16 | MM_ITS ---
EXAMINATION: MM DIAGNOSTIC DIGITAL BREAST TOMOSYNTHESIS, BILATERAL CLINICAL INFORMATION: Right IDC status post lumpectomy 06/05/2021. Status post radiation. Due for yearly. COMPARISON: Mammography: 06/05/2021, 05/19/2021, 05/16/2021, 04/24/2021, 04/21/2020, 03/07/2019 TECHNIQUE: Digital breast tomosynthesis is performed in both the craniocaudal and mediolateral oblique views along with computer-aided detection (CAD). Synthesized 2D images are generated from the tomosynthesis. Additional magnification right CC and magnification right ML views are obtained. FINDINGS: There are scattered areas of fibroglandular density (ACR BI-RADS breast composition Category b). There are post therapy changes on the right with minor reduced breast size, scarring, mild smooth skin thickening, and mild coarsening of the stromal markings. The left breast shows no significant changes from prior studies. No developing density or interval mass or architectural abnormality. No abnormal calcifications either breast. The axilla are unremarkable. Results are provided to the patient at time of visit by the technologist. MM/MM tomosynthesis diagnostic BI IMPRESSION: -No mammographic evidence of malignancy. -Post therapy changes right breast. ASSESSMENT: BI-RADS 2: Benign RECOMMENDATION: Annual bilateral mammography. This patient's information was entered into a reminder system with a target due date for their next mammogram.
== END 2022-05-16 15:00 | disposition home or self-care (01) ==
LOC: HO.MAMMO 14:59
PROVIDERS: Visit Provider Surgery
DX: R92.2 Inconclusive mammogram (principal); Z85.3 Personal history of malignant neoplasm of breast
CPT/HCPCS: 77062; 77066

== ENCOUNTER → 2022-06-19 15:40 | Outpatient (BNVA) | payer OTHER, SELFPAY | PROVIDERS: PCP Internal Medicine; Visit Provider Surgery | DX: Z13.89 Encounter for screening for other disorder (principal) ==

== ENCOUNTER → 2022-09-27 09:02 | Outpatient (BNVA) | payer OTHER, SELFPAY | PROVIDERS: PCP Internal Medicine; Visit Provider Surgery ==

== ENCOUNTER 2022-09-29 07:50 | Outpatient (REF) | payer OTHER, SELFPAY | END 2022-09-29 07:51 | disposition home or self-care (01) | LOC: HO.LAB 07:50 | PROVIDERS: PCP Internal Medicine; Visit Provider Internal Medicine | DX: Z00.00 Encounter for general adult medical examination without abnormal findings (principal); I10 Essential (primary) hypertension; E78.00 Pure hypercholesterolemia, unspecified; E55.9 Vitamin D deficiency, unspecified; R30.0 Dysuria | CPT/HCPCS: 36415; 80053; 80061; 81001; 82306; 84443; 85025; 87086 ==

== ENCOUNTER 2023-01-24 09:22 | Outpatient (AMB) | payer OTHER, SELFPAY ==
--- NOTE | 2023-01-24 09:27 | A.OFFVIS_ITS ---
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 She is not having any gynecological concerns she is not due for a Pap smear this year she has never had an abnormal. She has not been sexually active since her in 2013 she has no worries about abnormal discharge or itching or anything she has no issues with urination or constipation. She gets follow-up with Dr. Mccarty every 6 months status post lumpectomy. She gets regular mammograms and they have been normal. She is very active with her children and grand children and to pursue participating in care of them. She is also active with [employer] work. She retired last year so she could take care of her grand children more. At the end of the visit a discussion took place about occasional leg cramps that happen especially at night. Last year she was going to pursue physical therapy for rehab of her right arm area status post lumpectomy but it never quite happened but she has been doing her own stretching and physical therapy at home with staying active. [facility] Medical History Breast cancer Obesity (BMI 30-39.9) Vitamin D deficiency Pure hypercholesterolemia Benign essential hypertension Surgical History History of lumpectomy of right breast (06/05/21) Status post colonoscopy (~10/22/11) History of carpal tunnel release History of cholecystectomy Family History Father Medical history unknown Mother Diabetes Hypertension Maternal Aunt Breast cancer Social History Household Members: Family and Other Household Members Other:: Grandchildren 3 Housing: House Are you a primary career technology teacher to a significant other at home: No Do you presently have visiting nurse or other home services: No Alcohol intake: current Alcohol intake frequency: holidays/special occasions only Alcohol type: wine Patient Tobacco Use Status: Never used Tobacco e-Cigarette/Vaping Use: Never Used Second Hand Smoke Exposure: No service: No Current occupational status: employed 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 Current occupational exposures/hazards: No Gender identity: Female Cognitive needs: No Hearing needs: No Vision needs: No Female Reproductive History Menstrual Age of Menarche: 12 control method: none Total pregnancies: 6 Full term: 6 Number of Living Children: 6 Date of last pap smear: 10/28/19 (negative) History of abnormal pap smear: No Date of Mammogram: 05/16/22 Date of last Bone Density Screenin07/04/21 Physical Exam Vital Signs: BMI result Body Mass Index 32.1 Const General: healthy appearing, comfortable, no acute distress, well developed and alert Nutritional Appearance: average body habitus Orientation/consciousness: patient oriented x3 Limitations: no limitations HEENT Head: Yes normocephalic Neck Neck: Yes normal visual inspection Chest Other: Fairly well healed scar right breast status post lumpectomy there is some edema of the right lower areola status post lumpectomy as well. Chest palpation & inspection: normal inspection of the chest Breast/axilla inspection: normal inspection of the breasts and normal inspection of the axillae Breast/axilla palpation: normal palpation of the breasts and normal palpation of the axillae Resp Effort & Inspection: normal respiratory effort GI Inspection: Yes normal to inspection, No Abdominal wall edema and No distended Palpation (GI): Soft to palpation and nontender Other: Vagina is moist there is very normal healthy appearing whitish mucosal discharge cervix is multiparous pink irregular from childbirth. Cervix is long close thick mobile nontender uterus small firm anteverted mobile nontender adnexa nontender not enlarged good tone with Kegel General: Yes bladder normal to palpation External Female Exam: normal external appearance and normal appearance of the urethra Speculum Exam - Vagina: normal appearance of the vagina, normal palpation and normal vaginal discharge Speculum Exam - Cervix: normal appearance of the cervix, normal palpation and nontender Bimanual exam- vagina & uterus: normal bimanual exam, normal palpation, uterine size normal, bladder normal to palpation, consistency normal, normal palpation, uterine mobility normal, uterine shape normal, No Cervical tenderness present, non-tender and no cervical motion tenderness Bimanual Exam- Adnexa, other: normal adnexae, no masses, normal and No adnexal tenderness Neuro General: patient oriented x3 Assessment & Plan Assessment & Plan (1) Invasive ductal carcinoma of right breast: Code(s): C50.911 - Malignant neoplasm of unspecified site of right female breast (2) Well woman exam with routine gynecological exam: Code(s): Z01.419 - Encounter for gynecological examination (general) (routine) without abnormal findings (3) Cervical cancer screening: Comment: normal paps 1996 to 2019, next and last pap 2024... Code(s): Z12.4 - Encounter for screening for malignant neoplasm of cervix Plan -----Discussed in this visit the following: healthy balanced diet, regular and consistent exercise, getting recommended health screens, doing the best she can for her particular health concerns, kegel exercises, pap smear screening and followup recommendations, mammography screening and SBE, normal changes in cycles in her life stage--- . She is taking excellent care of herself physically and socially. She is eating well drinking lots of water. Suggested adding magnesium 250 mg tablets 1 or 2 a day or before bed to see if that helps with the leg cramps discussed GI effects as well. RTC 1 year Coding Level of Care Code Est Pt Prev Care 40-64y(38999) Diagnoses Invasive ductal carcinoma of right breast C50.911 Well woman exam with routine gynecological exam Z01.419 Cervical cancer screening Z12.4
[2023-01-24 09:28] VITALS: BMI 32.1
== END 2023-01-24 10:00 | disposition home or self-care (01) ==
PROVIDERS: Visit Provider Advanced Practice Midwife
DX: Z01.419 Encounter for gynecological examination (general) (routine) without abnormal findings (principal); C50.911 Malignant neoplasm of unspecified site of right female breast
CPT/HCPCS: 99396

== ENCOUNTER → 2023-01-24 09:22 | Outpatient (BNVA) | payer OTHER, SELFPAY | PROVIDERS: Visit Provider Advanced Practice Midwife ==

== ENCOUNTER 2023-03-29 08:58 | Outpatient (AMB) | payer OTHER, SELFPAY ==
--- NOTE | 2023-03-29 09:00 | A.OFFVIS_ITS ---
Intake Vital Signs 03/29/23 09:04 Height 5 ft 3 in Weight 185 lb BMI 32.8 BP 135/64 Blood Pressure Location Rt brachial Position Sitting Pulse 75 Intake Visit Reasons: 6 mth breast exam Intake Note: Patient is seen in office for 6 month follow up visit, breast exam. Pt c/o: reports soreness surgical site. 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: Infantry Weapons Crewmember Present (Gloria-RMA) Accompanied by: Self / Same As Patient Allergies aspirin [ASPIRIN] Allergy (Mild, Verified 03/29/23 09:05) GI UPSET, Stomach upset morphine [Morphine] Allergy (Mild, Verified 03/29/23 09:05) VOMITING Medication List - Last Reconciled 03/29/23 by Simón Mccarty MD cholecalciferol (vitamin D3) 25 mcg PO DAILY ibuprofen 600 mg PO Q8H PRN letrozole 2.5 mg PO DAILY lisinopril 5 mg PO DAILY 90 days multivitamin 1 tab PO DAILY HPI HPI Comments History of Present Illness Details 62-year-old female patient returning for follow-up breast examination following right breast lumpectomy with needle localization and sentinel node biopsy right axilla on 06/05/2021. He was found to have an ill-defined density by ultrasound and underwent ultrasound-guided core biopsy which revealed a grade 1 invasive ductal carcinoma, ER/OH positive, HER2 Fanny negative, Ki-67 5-10%. She has no previous history of breast surgery and her family history is significant for distant aunt with breast cancer. She is breastfed her children. 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 Oncotype testing was 4. (pT1c N0). She completed radiation therapy on 09/12/2021 and was evaluated by Dr. Johnson who started letrozole. She is tolerating this well and the plan is to continue for 5 years. She continues to note some pain in the right breast especially in the lower inner quadrant which seems to increase with lifting. She has been taking care of her grand children and feels this may be aggravating both arms. Her most recent mammogram of 05/16/2022 revealed post therapy changes in the right breast and no other suspicious changes (BI-RADS 2). She is scheduled for her annual mamm[facility] on [facility] Medical History Breast cancer Obesity (BMI 30-39.9) Vitamin D deficiency Pure hypercholesterolemia Benign essential hypertension Surgical History History of lumpectomy of right breast (06/05/21) Status post colonoscopy (~10/22/11) History of carpal tunnel release History of cholecystectomy Family History Father Medical history unknown Mother Diabetes Hypertension Maternal Aunt Breast cancer Social History Household Members: Family and Other Household Members Other:: Grandchildren 3 Housing: House Are you a primary healthcare corporate account director to a significant other at home: No Do you presently have visiting nurse or other home services: No Alcohol intake: current Alcohol intake frequency: holidays/special occasions only Alcohol type: wine Patient Tobacco Use Status: Never used Tobacco e-Cigarette/Vaping Use: Never Used Second Hand Smoke Exposure: No service: No Current occupational status: employed 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 Current occupational exposures/hazards: No Gender identity: Female Cognitive needs: No Hearing needs: No Vision needs: No Female Reproductive History Menstrual Age of Menarche: 12 Review of Systems Const Denies chills, Denies fever(s), Denies headache(s) and Denies poor appetite ENT Denies dizziness and Denies headache(s) Card Denies chest pain, Denies rapid heart rate, Denies palpitations and Denies slow heart rate Resp Denies chest congestion, Denies cough, Denies pain on inspiration and Denies wheezing GI Denies abdominal pain, Denies bloating, Denies change in stool character, Denies constipation, Denies diarrhea, Denies nausea, Denies vomiting and Denies hematemesis Denies nipple discharge Musc Denies back pain, Denies arthralgias, Denies joint swelling and Denies numbness Skin/Breast Denies breast swelling, Denies breast skin changes, Reports breast pain, Denies breast mass, Denies change in breast shape, Denies change in pigmentation, Denies nipple discharge, Denies erythema and Denies rash Neuro Denies dizziness, Denies headache(s) and Denies numbness Psych Denies anxiety and Denies depression Endo Denies palpitations Enrique/Lymph Denies easy bleeding, Denies easy bruising and Denies lymphadenopathy Aller/Immun Denies wheezing Physical Exam Vital Signs: Last Vital Signs Pulse 75 03/29/23 09:04 BP 135/64 03/29/23 09:04 BMI result Body Mass Index 32.8 Const General: cooperative and no acute distress Nutritional Appearance: well nourished Orientation/consciousness: patient oriented x3 Limitations: no limitations Neck Neck: Yes normal visual inspection and Yes no lymphadenopathy Chest Other: Right breast incisions are clean, dry, and intact without redness or discharge. Mild residual radiation change noted. No palpable mass, new skin change, nipple discharge or enlarged lymph nodes. Left breast reveals no skin change, nipple discharge, nipple retraction, palpable mass or enlarged lymph nodes. Resp Effort & Inspection: normal respiratory effort, no audible wheezes, no cough and no respiratory distress Skin Other: warm, dry, no rash Neuro General: patient oriented x3 Extrem Other: no peripheral edema Assessment & Plan Assessment & Plan (1) Invasive ductal carcinoma of right breast: Code(s): C50.911 - Malignant neoplasm of unspecified site of right female breast Plan 62-year-old female patient returning for follow-up breast examination. She has a prior history of infiltrating ductal carcinoma of the right breast, s/p right breast lumpectomy with sentinel node biopsy on 06/05/2021. Pathology revealed a 1.4 cm invasive ductal carcinoma, ER/OH positive, HER2 Fanny negative with negative margins, 0 of 8 sentinel lymph nodes with metastatic disease (pT1cNo). She completed radiation therapy on 09/02/2021 and is now on letrozole (Alex). Today's examination revealed a well-healed incision in the right breast with no evidence of recurrent disease in either breast. Her most recent mammogram of 05/16/2022 revealed post therapy changes in the right breast but no other suspicious changes (BI-RADS 2). She will be due for an annual mammogram in May 22, 2023. I recommended she return approximately 6 months for follow- up examination, sooner p.r.n.. Coding Level of Care Code Est Pt Level 3 (87246) Diagnoses Invasive ductal carcinoma of right breast C50.911
[2023-03-29 09:04] VITALS: BP 135/64; PULSE 75; BMI 32.8
== END 2023-03-29 09:16 | disposition home or self-care (01) ==
PROVIDERS: PCP Internal Medicine; Visit Provider Surgery
DX: C50.911 Malignant neoplasm of unspecified site of right female breast (principal)
CPT/HCPCS: 99213

== ENCOUNTER → 2023-03-29 08:58 | Outpatient (BNVA) | payer OTHER, SELFPAY | PROVIDERS: PCP Internal Medicine; Visit Provider Surgery ==

== ENCOUNTER 2023-05-20 16:28 | Outpatient (AMB) | payer OTHER, SELFPAY ==
[2023-05-20 16:28] VITALS: BP 128/80; PULSE 68; O2SAT 99; BMI 33.3
--- NOTE | 2023-05-20 16:28 | A.OFFPC_ITS ---
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: No Accompanied by: Self / Same As Patient Allergies aspirin [ASPIRIN] Allergy (Mild, Verified 05/20/23 17:32) GI UPSET, Stomach upset morphine [Morphine] Allergy (Mild, Verified 05/20/23 17:32) VOMITING Medication List - Last Reconciled 05/20/23 by Zelalem Jones MD cholecalciferol (vitamin D3) 25 mcg PO DAILY ibuprofen 600 mg PO Q8H PRN letrozole 2.5 mg PO DAILY lisinopril 5 mg PO DAILY 90 days multivitamin 1 tab PO DAILY Tobacco use date assessed: 05/20/23 Dental Screening Dental Screen Date: 05/20/23 Did you have a dental visit in the last 12 months?: Yes Did you have a dental problem in the last 6 months where you did not have access to dental care?: No Was dental information given to patient?: Patient has dentist HPI 6mth f/u HPI Details Patient comes in today for her follow up visit States that she feels okay She denies any headaches or dizziness Denies any chest pains, no shortness of breath She denies any nausea/vomiting but reports that she has been experiencing on and off cramping pain over the left side of her abdomen for the past couple of weeks now Has noticed that the pain tends to be relieved when she burps and do not seem to be aggravated of affected when she eats or drinks No change in bowel habits noted Recall that she has been picking up and carrying her grandchild around recently and thinks that left-sided abdominal pain is most likely due to some muscular strain She has no follow-up labs done recently [facility] Medical History Breast cancer Obesity (BMI 30-39.9) Vitamin D deficiency Pure hypercholesterolemia Benign essential hypertension Surgical History History of lumpectomy of right breast (06/05/21) Status post colonoscopy (~10/22/11) History of carpal tunnel release History of cholecystectomy Family History Father Medical history unknown Mother Diabetes Hypertension Maternal Aunt Breast cancer Social History Household Members: Family and Other Household Members Other:: Grandchildren 3 Housing: House Are you a primary childcare aide to a significant other at home: No Do you presently have visiting nurse or other home services: No Alcohol intake: current Alcohol intake frequency: holidays/special occasions only Alcohol type: wine Patient Tobacco Use Status: Never used Tobacco e-Cigarette/Vaping Use: Never Used Second Hand Smoke Exposure: No service: No Current occupational status: employed 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 Current occupational exposures/hazards: No Gender identity: Female Cognitive needs: No Hearing needs: No Vision needs: No Female Reproductive History Menstrual Age of Menarche: 12 Questionnaire PHQ-9 Over the last 2 weeks, how often have you been bothered by any of the following problems? 1. Little interest or pleasure in doing things: not at all 2. Feeling down, depressed, or hopeless: not at all 3. Trouble falling or staying asleep, or sleeping too much: not at all 4. Feeling tired or having little energy: not at all 5. Poor appetite or overeating: not at all 6. Feeling bad about yourself - or that you are a failure or have let yourself or your family down: not at all 7. Trouble concentrating on things, such as reading the newspaper or watching television: not at all 8. Moving or speaking so slowly that other people could have noticed. Or the opposite - being so fidgety or restless that you have been moving around a lot more than usual: not at all 9. Thoughts that you would be better off or of hurting yourself in some way: not at all Total score: 0 Depression Screening Interpretation: Negative Depression Screening Done: Yes 69372 - PHQ-9 Billing: Yes Source: Developed by Drs. Ag Roe, Barbara Huizar, Cam Bullock and colleagues, with an educational dickson from [employer]. Thrive Questionnaire Date Thrive assessed: 05/20/23 I am a: Patient What is your living situation today?: I have a steady place to live Within the past 12 months, did the food you bought not last and you didn't have the money to get more?: Never true Within the past 12 months, did you worry whether your food would run out before you got money to buy more?: Never true Do you have trouble paying for medicines?: No Do you have trouble getting transportation to medical appointments?: No Do you have trouble paying your heating and electricity bill?: No Do you have trouble taking care of your child, family member or friend?: No Do you have trouble with day-to-day activities such as bathing, preparing meals, shopping, managing finances, etc.?: No Are you currently unemployed and looking for a job?: No Are you interested in more education?: No Please select the resources that you would like help with: None Currently or been in a relationship where the following occur: no concerns reported THRIVE Score: 0 AUDIT C Alcohol Use Questionnaire (AUDIT-C) 1. How often do you have a drink containing alcohol?: Never Total Score: 0 Score Reviewed/Action Taken: Yes GABRIELLA-7 AMB Questionnaire GABRIELLA-7 Date GABRIELLA - 7 assessed: 05/20/23 Feeling nervous, anxious, or on edge: 0 = Not at all Not being able to stop or control worryin = Not at all Worrying too much about different things: 0 = Not at all Trouble relaxin = Not at all Being so restless that it is hard to sit still: 0 = Not at all Becoming easily annoyed or irritable: 0 = Not at all Feeling afraid as if something awful might happen: 0 = Not at all Total GABRIELLA-7 score (0-4 normal; 5-9 mild; 10-14 moderate; 15-21 severe): 0 Source: Developed by Drs. Ag Roe, Barbara Huizar, Cam Bullock and colleagues, with an educational dickson from [employer]. GABRIELLA-7 Assessment Billing GABRIELLA-7 Assessment Tool: GABRIELLA-7 Assessment 72517 Review of Systems Const Denies chills, Denies fatigue, Denies fever(s) and Denies headache(s) ENT Denies dysphagia, Denies dizziness, Denies otalgia, Denies headache(s), Denies neck pain, Denies odynophagia and Denies sore throat Card Denies chest pain, Denies palpitations and Denies dyspnea Resp Denies cough and Denies dyspnea GI Reports abdominal pain (on and off cramping pain on the left side of the abdomen - see HPI), Denies constipation, Denies dysphagia, Denies heartburn, Denies diarrhea, Denies nausea, Denies odynophagia and Denies vomiting Denies difficulty voiding, Denies nocturia and Denies dysuria Musc Denies back pain and Denies neck pain Skin/Breast Denies rash Neuro Denies dizziness and Denies headache(s) Endo Denies fatigue and Denies palpitations Physical exam (Primary Care) Vital Signs: Last Vital Signs Pulse 68 05/20/23 16:28 BP 128/80 05/20/23 16:28 Pulse Ox 99 05/20/23 16:28 Oxygen Delivery Method Room Air 05/20/23 16:28 BMI result Body Mass Index 33.3 Tobacco/Smoking Status: Tobacco use Status Tobacco use date assessed 05/20/23 05/20/23 16:30 Patient Tobacco Use Status Never used Tobacco 05/20/23 16:30 e-Cigarette/Vaping Use Never Used 05/20/23 16:30 PHQ-9: PHQ-9 Score PHQ-9: Total score 0 05/20/23 22:58 Depression Screening Interpretation: Negative Thrive Assessment: Date of Thrive Assessment Date Thrive assessed 05/20/23 05/20/23 16:30 Currently or been in a relationship where the following occur: no concerns reported Const General: no acute distress and alert HENMT Ears: TM's normal bilaterally and EAC's normal Throat: Yes posterior oropharynx normal and Yes tonsils normal (no TP congestion) Neck Neck: Yes no lymphadenopathy and Yes supple Thyroid: Thyroid normal Resp Auscultation: clear to auscultation bilaterally, no rales and no wheezes Cardio Rate: regular rate Rhythm: regular rhythm Heart sounds: no murmurs GI Palpation (GI): Soft to palpation and nontender (no reproducible tenderness on abdominal exam) Auscultation: normal bowel sounds General: Yes no CVA tenderness Back/Spine/Pelvis Back: no CVA tenderness Thoracic/Lumbar Spine: thoracic and lumbar spine normal to inspection Skin Rashes: no rashes Extrem General: Yes no clubbing, cyanosis or edema Assessment and Plan Assessment & Plan (1) Benign essential hypertension: Code(s): I10 - Essential (primary) hypertension Plan: Reinforced low sodium diet - goal is systolic BP of 120 mm or less Continue Lisinopril 5 mg QD (2) Pure hypercholesterolemia: Code(s): E78.00 - Pure hypercholesterolemia, unspecified Plan: Reinforced low cholesterol diet Will recheck her fasting lipids MELCHOR for follow up (3) Vitamin D deficiency: Code(s): E55.9 - Vitamin D deficiency, unspecified Plan: Continue Vitamin D3 1000 units QD Will recheck her Vitamin D level for follow up (4) Left sided abdominal pain: Code(s): R10.9 - Unspecified abdominal pain Plan: Patient is advised that this is most likely due to musculoskeletal strain involving the abdominal muscle over her left side She is instructed to avoid any heavy lifting for a couple of weeks to keep from aggravating her injury Is advised to call if her symptoms persist or progress or if there is any change in her symptoms (5) Invasive ductal carcinoma of right breast: Code(s): C50.911 - Malignant neoplasm of unspecified site of right female breast Plan: Lumpectomy and sentinel node Bx done on 06/05/21 revealed invasive ductal carcinoma, grade 2, 1.4 cm, margins negative ER positive, [place] positive, HER2/nabeel negative Her sentinel lymph node biopsy came back negative; Oncotype diagnostic testing also came back negative Patient completed postlumpectomy radiation on 09/12/2021 She was started on Letrozole 2.5 mg QD beginning in June 2021 Follow up with Oncology as scheduled (6) Obesity (BMI 30-39.9): Code(s): E66.9 - Obesity, unspecified Plan: Reinforced diet/exercise as tolerated /lose weight Plan To return as scheduled in September 2023 for her annual physical examination She is reminded to get her labs done a week or a few days before she comes back for her annual PE Orders: Orders Lipid Panel 05/20/23 E78.00 - Pure hypercholesterolemia, unspecified Vitamin D 25-OH Total 09/23/23 E55.9 - Vitamin D deficiency, unspecified, Z00.00 - Encounter for general adult medical examination without abnormal findings Comprehensive [place]. Panel Fast 05/20/23 E78.00 - Pure hypercholesterolemia, unspecified Complete Blood Count Auto Diff 09/23/23 D64.9 - Anemia, unspecified, Z00.00 - Encounter for general adult medical examination without abnormal findings Comprehensive [place]. Panel Fast 09/23/23 E78.00 - Pure hypercholesterolemia, unspecified, Z00.00 - Encounter for general adult medical examination without abnormal findings Lipid Panel 09/23/23 E78.00 - Pure hypercholesterolemia, unspecified, Z00.00 - Encounter for general adult medical examination without abnormal findings TSH reflex Free T4 09/23/23 E78.00 - Pure hypercholesterolemia, unspecified, Z00.00 - Encounter for general adult medical examination without abnormal findings UA CC w/rflx Micro + Cult 09/23/23 R30.0 - Dysuria, Z00.00 - Encounter for general adult medical examination without abnormal findings Coding Level of Care Code Est Pt Level 4 (81023) Diagnoses Benign essential hypertension I10 Pure hypercholesterolemia E78.00 Vitamin D deficiency E55.9 Left sided abdominal pain R10.9 Invasive ductal carcinoma of right breast C50.911 Obesity (BMI 30-39.9) E66.9 Additional Codes GABRIELLA-7 Assessment Billing - GABRIELLA-7 Assessment Tool: GABRIELLA-7 Assessment 34844 ([id number])
== END 2023-05-20 17:41 | disposition home or self-care (01) ==
PROVIDERS: PCP Internal Medicine; Visit Provider Internal Medicine
DX: I10 Essential (primary) hypertension (principal); C50.911 Malignant neoplasm of unspecified site of right female breast; Z68.33 Body mass index [BMI] 33.0-33.9, adult; E66.9 Obesity, unspecified; E78.00 Pure hypercholesterolemia, unspecified; E55.9 Vitamin D deficiency, unspecified; R10.9 Unspecified abdominal pain
CPT/HCPCS: 99214

== ENCOUNTER 2023-05-23 07:30 | Outpatient (REF) | payer OTHER, SELFPAY ==
[2023-05-23 08:21] LABS: Alanine Aminotransferase 15 U/L (0-31); Albumin Level 3.9 g/dL (3.5-5.0); Alkaline Phosphatase 84 U/L (39-117); Anion Gap 13 (12-20); Aspartate Amino Transferase 15 U/L (5-31); Bilirubin Total 0.7 mg/dL (0.0-1.0); Blood Urea Nitrogen 17 mg/dL (9-16); Calcium 9.2 mg/dL (8.4-10.2); Carbon Dioxide 27 mmol/L (22-29); Chloride 107 mmol/L (96-108); Cholesterol 192 mg/dL (<200); Estimated Glomerular Filt Rate > 60; Glucose Fasting 101 mg/dL (60-99); HDL Cholesterol 58 mg/dL (>40); LDL Cholesterol Calculated 122 mg/dL (<100); Potassium 4.3 mmol/L (3.3-5.1); Sodium 143 mmol/L (135-145); Total Protein 7.1 g/dL (6.5-8.0); Triglycerides 61 mg/dL (<150)
== END 2023-05-23 07:31 | disposition home or self-care (01) ==
LOC: HO.LAB 07:30
PROVIDERS: PCP Internal Medicine; Visit Provider Internal Medicine
DX: E78.00 Pure hypercholesterolemia, unspecified (principal)
CPT/HCPCS: 36415; 80053; 80061

== ENCOUNTER 2023-05-27 10:30 | Outpatient (REF) | payer OTHER, SELFPAY ==
--- NOTE | ~2023-05-27 | MM_ITS ---
EXAMINATION: MM DIAGNOSTIC DIGITAL BREAST TOMOSYNTHESIS, BILATERAL CLINICAL INFORMATION: Right IDC status post lumpectomy 06/05/2021. Status post radiation. Year 2 follow-up Due for yearly. COMPARISON: Mammography: 05/16/2022, 06/05/2021, 05/19/2021 (right core biopsy ultrasound), 05/16/2021, 04/24/2021, 04/21/2020, 03/07/2019 TECHNIQUE: Digital breast tomosynthesis is performed in both the craniocaudal and mediolateral oblique views along with computer-aided detection (CAD). Synthesized 2D images are generated from the tomosynthesis. In addition to standard views, spot magnification 2-D right ML and CC views were obtained of the lumpectomy site. FINDINGS: There are scattered areas of fibroglandular density (ACR BI-RADS breast composition Category b). There are similar post therapy changes on the right with minor reduced breast size, scarring in the upper outer aspect anteriorly, and mild stromal coarsening and skin thickening, expected post therapy changes. There is no evidence of disease recurrence identified. No developing mass, suspicious calcifications, or new architectural distortion identified in either breast. No axillary abnormalities. MM/MM tomosynthesis diagnostic BI IMPRESSION: No mammographic findings suspicious for malignancy. Expected evolution of postoperative changes right breast, with no evidence of recurrent disease. There are no suspicious findings in the left breast. Recommend standard 1 year follow-up for year 3 postoperative protocol. ASSESSMENT: BI-RADS BI-RADS 2 - Benign Findings RECOMMENDATION: 1 year F/U Results were provided to the patient at time of visit by the technologist. This patient's information was entered into a reminder system with a target due date for their next mammogram.
== END 2023-05-27 10:31 | disposition home or self-care (01) ==
LOC: HO.MAMMO 10:30
PROVIDERS: PCP Internal Medicine; Visit Provider Surgery
DX: Z85.3 Personal history of malignant neoplasm of breast (principal)
CPT/HCPCS: 77062; 77066

== ENCOUNTER → 2023-05-27 11:00 | Outpatient (BNV) | payer OTHER, SELFPAY | PROVIDERS: PCP Internal Medicine; Visit Provider Radiology Diagnostic Radiology | DX: R92.8 Other abnormal and inconclusive findings on diagnostic imaging of breast (principal) | CPT/HCPCS: 77062; 77066 ==

== ENCOUNTER 2023-07-09 12:32 | Outpatient (REF) | payer OTHER, SELFPAY ==
--- NOTE | ~2023-07-09 | MM_ITS ---
EXAMINATION: BONE DENSITOMETRY CLINICAL INDICATION: Osteopenia. COMPARISON: Previous BD dated 07/04/2021 and baseline BD dated 10/19/2011. TECHNIQUE: Using a Spectral Edge DXA System (software version: 13.1) manufactured by [employer], dual-energy x-ray absorptiometry was performed of the lumbar spine and left hip. The images are of good technical quality. Summary results are attached. FINDINGS: LEFT FEMUR, NECK: Current: BMD 0.852 g/cm2, Z-score -0.4, T-score -1.3, osteopenia. Prior: BMD 0.907 g/cm2. Baseline: BMD 0.977 g/cm2. LEFT FEMUR, TOTAL: Current: BMD 0.909 g/cm2, Z-score -0.2, T-score -0.8, normal, 3.9% decrease from previous, 12.6% decrease from baseline (<5% change is not significant). Prior: BMD 0.946 g/cm2. Baseline: BMD 1.040 g/cm2. AP SPINE L1-L4: Current: BMD 1.050 g/cm2, Z-score -0.4, T-score -1.1, osteopenia, 3.7% decrease from previous, 8.5% decrease from baseline (<5% change is not significant). Prior: BMD 1.090 g/cm2. Baseline: BMD 1.148 g/cm2. IDENTIFIED RISK FACTORS: Early menopause, secondary osteoporosis. HISTORY OF FRACTURE: None listed. MEDICATIONS: Vitamin D. MM/XR DEXA axial skeleton IMPRESSION: 1. DIAGNOSIS: Osteopenia based on the lowest T-score value of -1.3 in the femoral neck applying World Health Organization criteria. 2. 10-YEAR FRACTURE RISK PREDICTION, FRAX: Major osteoporotic fracture (clinical spine, forearm, hip or shoulder) 4.2%. Hip fracture 0.3%. 3. Treatment Recommendations: NOF guidelines recommend consideration for treatment in postmenopausal women and men age 50 and older presenting with the following: -A hip or vertebral (clinical or morphometric) fracture. -T-score less than or equal to -2.5 at the femoral neck or spine after appropriate evaluation to exclude secondary causes. -Low bone mass at the hip or spine and a 10-year fracture probability by FRAX of greater than or equal to 3% for hip fracture or greater than or equal to 20% for major osteoporotic fracture based on the [place] adapted WHO algorithm. 4. Other Recommendations: All treatment decisions require clinical judgment and consideration of individual patient factors, including patient preferences, comorbidities, previous drug use, risk factors not captured in the FRAX model (e.g. frailty, falls, vitamin D deficiency, increased bone turnover, interval significant decline in bone density) and possible under or overestimation of fracture risk by FRAX. Additional medical evaluation for secondary cause of low bone mineral density may be appropriate. FUTURE SCAN RECOMMENDATION: People with diagnosed cases of osteoporosis or at high risk for fracture should have regular bone mineral density tests. For patients eligible for Medicare, routine testing is allowed once every 2 years. The testing frequency can be increased to one year for patients who have rapidly progressing disease, those who are receiving or discontinuing medical therapy to restore bone mass, or have additional risk factors.
== END 2023-07-09 12:33 | disposition home or self-care (01) ==
LOC: HO.MAMMO 12:32
PROVIDERS: PCP Internal Medicine; Visit Provider Internal Medicine Medical Oncology
DX: Z13.820 Encounter for screening for osteoporosis (principal); Z78.0 Asymptomatic menopausal state; Z85.3 Personal history of malignant neoplasm of breast
CPT/HCPCS: 77080

== ENCOUNTER 2023-08-03 07:24 | Outpatient (REF) | payer OTHER, SELFPAY | END 2023-08-03 07:25 | disposition home or self-care (01) | LOC: HO.LAB 07:24 | PROVIDERS: PCP Internal Medicine; Visit Provider Internal Medicine | DX: Z13.89 Encounter for screening for other disorder (principal) ==

== ENCOUNTER 2023-08-29 09:27 | Outpatient (REF) | payer OTHER, SELFPAY ==
[2023-08-29 09:46] LABS: MANUAL DIFF FLAG NO
[2023-08-29 10:45] LABS: Basophils Absolute Auto 0.1 X10*3/uL (0.0-0.2); Basophils Percent Auto 1.1 % (0-2); Eosinophils Absolute Auto 0.3 X10*3/uL (0.0-0.4); Eosinophils Percent Auto 5.8 % (0-4); Imm Gran Abs Auto 0.02 X10*3/uL (0.00-0.03); Imm Gran Pct Auto 0.4 % (0.0-0.4); Lymphocytes Absolute Auto 1.9 X10*3/uL (1.2-4.9); Lymphocytes Percent Auto 32.6 % (20-40); Mean Corpuscular HGB Conc 32.6 g/dl (31.0-35.0); Mean Corpuscular Hemoglobin 29.4 pg (27.0-33.0); Mean Corpuscular Volume 90.1 fL (80.0-98.0); Mean Platelet Volume 9.7 fL (9.4-12.3); Monocytes Absolute Auto 0.7 X10*3/uL (0.1-1.2); Monocytes Percent Auto 11.8 % (2-11); Neutrophils Absolute Auto 2.8 x10*3/uL (2.0-8.3); Neutrophils Percent Auto 48.3 % (45-73); Platelet Count 339 X10*3/uL (160-400); Red Blood Count 4.77 X10*6/uL (4.20-5.50); Red Cell Distribution Width 13.7 % (11.0-16.0); White Blood Count 5.7 X10*3/uL (4.8-10.8)
[2023-08-29 11:01] LABS: Appearance Urine Clear; Color Urine Yellow; Glucose Urine UA Negative (Negative); Leukocyte Esterase Urine Small (1+) (Negative); Nitrite Urine Negative (Negative); PH 5.5 (5.0-9.0); Specific Gravity - Urine 1.015 (1.005-1.025); UMIC TRIGGER UACC YES; Urine Blood Small (1+) (Negative); Urine Ketones Negative (Negative); Urine Protein Negative (Neg-Trace)
[2023-08-29 11:17] LABS: Bacteria Urine None Seen (None Seen); Hyaline Casts Urine 0-2 /LPF (0-2); RBC Urine 0-2 /HPF (0-2); Squamous Epithelial Cell Urine 0-2 /HPF (0-2); UACC Culture Trigger YES; WBC Urine 0-5 /HPF (0-5)
[2023-08-29 11:32] LABS: Alanine Aminotransferase 17 U/L (0-31); Albumin Level 4.2 g/dL (3.5-5.0); Alkaline Phosphatase 96 U/L (39-117); Anion Gap 10 (12-20); Aspartate Amino Transferase 17 U/L (5-31); Bilirubin Total 1.3 mg/dL (0.0-1.0); Blood Urea Nitrogen 14 mg/dL (9-16); Calcium 8.9 mg/dL (8.4-10.2); Carbon Dioxide 28 mmol/L (22-29); Chloride 105 mmol/L (96-108); Cholesterol 193 mg/dL (<200); Estimated Glomerular Filt Rate > 60; Glucose Fasting 89 mg/dL (60-99); HDL Cholesterol 56 mg/dL (>40); LDL Cholesterol Calculated 120 mg/dL (<100); Potassium 4.4 mmol/L (3.3-5.1); Sodium 139 mmol/L (135-145); Total Protein 7.5 g/dL (6.5-8.0); Triglycerides 85 mg/dL (<150)
[2023-08-29 11:49] LABS: TSH reflex Free T4 0.95 uIU/mL (0.32-4.0); Vitamin D 25-OH Total 46.4 ng/mL (>30)
== END 2023-08-29 09:28 | disposition home or self-care (01) ==
LOC: HO.LAB 09:27
PROVIDERS: PCP Internal Medicine; Visit Provider Internal Medicine
DX: Z00.00 Encounter for general adult medical examination without abnormal findings (principal); E55.9 Vitamin D deficiency, unspecified; D64.9 Anemia, unspecified; E78.00 Pure hypercholesterolemia, unspecified
CPT/HCPCS: 36415; 80053; 80061; 81001; 82306; 84443; 85025; 87086

== ENCOUNTER 2023-09-26 08:35 | Outpatient (AMB) | payer OTHER, SELFPAY ==
[2023-09-26 08:37] VITALS: BMI 34.0
--- NOTE | 2023-09-26 08:37 | A.OFFVIS_ITS ---
Vital Signs 3 09/26/23 08:37 Height 5 ft 3 in Weight 192 lb BMI 34.0 Intake Visit Reasons: 6 month follow up, breast exam Intake Note: This patient presents for a six month follow-up breast examination assessment. Patient c/o; reports occasional soreness right side of breast and does not know if it is related to her muscle when she does excersie. River Expedition Guide Required: No Accompanied by: Self / Same As Patient Allergies aspirin [ASPIRIN] Allergy (Mild, Verified 09/26/23 08:44) GI UPSET, Stomach upset morphine [Morphine] Allergy (Mild, Verified 09/26/23 08:44) VOMITING Medication List - Last Reconciled 09/26/23 by Simón Mccarty MD cholecalciferol (vitamin D3) 25 mcg PO DAILY ibuprofen 600 mg PO Q8H PRN letrozole 2.5 mg PO DAILY lisinopril 5 mg PO DAILY 90 days multivitamin 1 tab PO DAILY HPI Comments Details: 63-year-old female patient returning for follow-up breast examination following right breast lumpectomy with needle localization and sentinel node biopsy right axilla on 06/05/2021. She was found to have an ill-defined density by ultrasound and underwent ultrasound-guided core biopsy which revealed a grade 1 invasive ductal carcinoma, ER/NE positive, HER2 Fanny negative, Ki-67 5-10%. She has no previous history of breast surgery and her family history is significant for distant aunt with breast cancer. She is breastfed her children. 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 Oncotype testing was 4. (pT1c N0). She completed radiation therapy on 09/12/2021 and was evaluated by Dr. Johnson who started letrozole. She is tolerating this well and the plan is to continue for 5 years. She continues to note occasional discomfort in the right breast especially in the lower inner quadrant which seems to increase with lifting (she has been gardening lately). The pain is not persistent and was fine yesterday after playing volleyball in her pool. Her last mammogram dated 05/27/2023 revealed no mammographic evidence of malignancy (BI-RADS 2). A 1 year follow-up diagnostic mammogram has been scheduled for 05/28/2024. [facility] Medical History Breast cancer Obesity (BMI 30-39.9) Vitamin D deficiency Pure hypercholesterolemia Benign essential hypertension Surgical History History of lumpectomy of right breast (06/05/21) Status post colonoscopy (~10/22/11) History of carpal tunnel release History of cholecystectomy Family History Father Medical history unknown Mother Diabetes Hypertension Maternal Aunt Breast cancer Social History Household Members: Family and Other Household Members Other:: Grandchildren 3 Housing: House Are you a primary respiratory care specialist to a significant other at home: No Do you presently have visiting nurse or other home services: No Alcohol intake: current Alcohol intake frequency: holidays/special occasions only Alcohol type: wine Patient Tobacco Use Status: Never used Tobacco e-Cigarette/Vaping Use: Never Used Second Hand Smoke Exposure: No service: No Current occupational status: employed 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 Current occupational exposures/hazards: No Gender identity: Female Cognitive needs: No Hearing needs: No Vision needs: No Female Reproductive History Menstrual Age of Menarche: 12 Review of Systems Const All systems reviewed & are unremarkable except as noted in HPI and below Physical Exam Vital Signs: BMI result Body Mass Index 34.0 Const General: cooperative and no acute distress Nutritional Appearance: well nourished Orientation/consciousness: patient oriented x3 Limitations: no limitations Neck Neck: Yes normal visual inspection and Yes no lymphadenopathy Chest Other: Right breast incisions are clean, dry, and intact without redness or discharge. Mild residual radiation change noted. No palpable mass, new skin change, nipple discharge or enlarged lymph nodes. Left breast reveals no skin change, nipple discharge, nipple retraction, palpable mass or enlarged lymph nodes. Chest/axillae images: 2 1. 2. Resp Effort & Inspection: normal respiratory effort, no audible wheezes, no cough and no respiratory distress Skin Other: warm, dry, no rash Neuro General: patient oriented x3 Extrem Other: no peripheral edema Assessment & Plan Assessment & Plan (1) Invasive ductal carcinoma of right breast: Code(s): C50.911 - Malignant neoplasm of unspecified site of right female breast Category: Medical Plan 63-year-old female patient returning for follow-up breast examination. She has a prior history of infiltrating ductal carcinoma of the right breast, s/p right breast lumpectomy with sentinel node biopsy on 06/05/2021. Pathology revealed a 1.4 cm invasive ductal carcinoma, ER/NE positive, HER2 Fanny negative with negative margins, 0 of 8 sentinel lymph nodes with metastatic disease (pT1cNo). She completed radiation therapy on 09/02/2021 and is now on letrozole (Alex). Today's examination revealed a well-healed incision in the right breast with no evidence of recurrent disease in either breast. Her most recent mammogram dated 05/27/2023 revealed no mammographic evidence of malignancy (BI-RADS 2). A 1 year follow-up diagnostic mammogram is scheduled for 05/28/2024. I recommended she return approximately 6 months for follow-up examination, sooner p.r.n.. Coding Level of Care Code Est Pt Level 3 (70189) Diagnoses Invasive ductal carcinoma of right breast C50.911
== END 2023-09-26 08:55 | disposition home or self-care (01) ==
PROVIDERS: PCP Internal Medicine; Visit Provider Surgery
DX: C50.911 Malignant neoplasm of unspecified site of right female breast (principal)
CPT/HCPCS: 99213

== ENCOUNTER → 2023-09-26 08:35 | Outpatient (BNVA) | payer OTHER, SELFPAY | PROVIDERS: PCP Internal Medicine; Visit Provider Surgery ==

== ENCOUNTER 2023-10-01 12:49 | Outpatient (AMB) | payer BC, SELFPAY ==
--- NOTE | 2023-10-01 12:51 | MHC.PC.OV ---
Vital Signs 10/01/23 12:53 Height 5 ft 3 in Weight 193 lb 2 oz BMI 34.2 BP 110/66 Blood Pressure Location Lt brachial Position Sitting Pulse 73 Pulse Source Pulse Oximeter Pulse Oximetry (%) 96 Oxygen Delivery Method Room Air Intake Visit Reasons: Annual exam Intake Note: Patient is here today for a physical. Generator Rebuilder Required: No Insurance And Financial Services Agent: Not Required per policy Accompanied by: Self / Same As Patient Allergies aspirin [ASPIRIN] Allergy (Mild, Verified 10/01/23 13:27) GI UPSET, Stomach upset morphine [Morphine] Allergy (Mild, Verified 10/01/23 13:27) VOMITING Medication List - Last Reconciled 10/01/23 by Zelalem Jones MD cholecalciferol (vitamin D3) 25 mcg PO DAILY ibuprofen 600 mg PO Q8H PRN letrozole 2.5 mg PO DAILY lisinopril 5 mg PO DAILY 90 days multivitamin 1 tab PO DAILY Tobacco use date assessed: 10/01/23 Dental Screening Dental Screen Date: 05/20/23 HPI Annual exam HPI Details Patient comes in today for her annual physical examination She reportedly had a prolonged bout with stomach virus for a couple of weeks last month but her bowel movements are now back to normal and all of her GI symptoms (abdominal pain/bloating, nausea, diarrhea) have all cleared up completely States that her son got sick first but his symptoms lasted only for about 3 days, and other members of the family gradually got sick afterwards one after the other States that she currently feels okay She denies any headaches or dizziness Denies any chest pains, no SOB No nausea/vomiting, no abdominal pain No change in bowel habits noted She denies any acute urinary symptoms Had her follow up labs done a month ago - to discuss her results She had her colonoscopy done in 03/2022 and she is due for repeat colonoscopy in 10 years (2031) She is scheduled for her next gynecology exam and [facility] She had her mammogram last done in May 2023 and bone density in July 2023 [facility] Medical History Breast cancer Obesity (BMI 30-39.9) Vitamin D deficiency Pure hypercholesterolemia Benign essential hypertension Surgical History History of lumpectomy of right breast (06/05/21) Status post colonoscopy (~10/22/11) History of carpal tunnel release History of cholecystectomy Family History Father Medical history unknown Mother Diabetes Hypertension Maternal Aunt Breast cancer Social History Household Members: Family and Other Household Members Other:: Grandchildren 3 Housing: House Are you a primary wound care center consultant to a significant other at home: No Do you presently have visiting nurse or other home services: No Alcohol intake: current Alcohol intake frequency: holidays/special occasions only Alcohol type: wine Patient Tobacco Use Status: Never used Tobacco e-Cigarette/Vaping Use: Never Used Second Hand Smoke Exposure: No service: No Current occupational status: employed 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 Current occupational exposures/hazards: No Gender identity: Female Cognitive needs: No Hearing needs: No Vision needs: No Female Reproductive History Menstrual Age of Menarche: 12 Questionnaire Thrive Questionnaire Date Thrive assessed: 05/20/23 GABRIELLA-7 AMB Questionnaire GABRIELLA-7 Date GABRIELLA - 7 assessed: 05/20/23 Source: Developed by Drs. Ag Roe, Barbara Huizar, Cam Bullock and colleagues, with an educational dickson from [email or web address] Review of Systems Const Denies chills, Denies fatigue, Denies fever(s), Denies headache(s) and Denies malaise Eyes Denies blurry vision, Denies change in vision, Denies irritation and Denies itchy eyes ENT Denies dysphagia, Denies dizziness, Denies otalgia, Denies headache(s), Denies nasal congestion, Denies neck pain, Denies odynophagia, Denies sinus pain and Denies sore throat Card Denies chest pain, Denies rapid heart rate, Denies irregular heart rhythm, Denies palpitations and Denies dyspnea Resp Denies chest congestion, Denies cough, Denies dyspnea and Denies wheezing GI Denies abdominal pain, Denies bloating, Denies constipation, Denies dysphagia, Denies heartburn, Denies diarrhea, Denies nausea, Denies odynophagia and Denies vomiting Denies hematuria, Denies urinary frequency, Denies dysuria, Denies urinary incontinence and Denies urinary urgency Musc Denies back pain, Denies arthralgias, Denies joint swelling, Denies muscle weakness and Denies neck pain Skin/Breast Denies breast pain, Denies breast mass, Denies change in pigmentation, Denies lesions, Denies rash and Denies unusual bruising Neuro Denies dizziness, Denies headache(s) and Denies paresthesias Psych Denies anxiety and Denies depression Endo Denies fatigue and Denies palpitations Enrique/Lymph Denies easy bruising Aller/Immun Denies itchy eyes and Denies wheezing Physical exam (Primary Care) Vital Signs: Last Vital Signs Pulse 73 10/01/23 12:53 BP 110/66 10/01/23 12:53 Pulse Ox 96 10/01/23 12:53 Oxygen Delivery Method Room Air 10/01/23 12:53 BMI result Body Mass Index 34.2 Tobacco/Smoking Status: Tobacco use Status Tobacco use date assessed 10/01/23 10/01/23 12:58 Patient Tobacco Use Status Never used Tobacco 10/01/23 12:58 e-Cigarette/Vaping Use Never Used 10/01/23 12:58 Thrive Assessment: Date of Thrive Assessment Date Thrive assessed 05/20/23 10/01/23 12:58 Const General: no acute distress, alert and awake Orientation/consciousness: patient oriented x3 HENMT Head: Yes normocephalic and Yes atraumatic Ears: external ears normal, TM's normal bilaterally and EAC's normal General nose exam: No nasal discharge present Face and sinus: Yes normal facial exam and Yes sinuses nontender Teeth and gingiva: dentition normal Throat: Yes posterior oropharynx normal and Yes tonsils normal (no TP congestion) Eyes Eyelids: Yes eyelids normal Conjunctivae: conjunctivae normal Pupils: Equal, round and reactive pupils present EOM: EOMs intact bilaterally Neck Neck: Yes no lymphadenopathy and Yes supple Thyroid: Thyroid normal Resp Auscultation: clear to auscultation bilaterally, no rales and no wheezes Cardio Rate: regular rate Rhythm: regular rhythm Heart sounds: no murmurs GI Palpation (GI): Soft to palpation, nontender and No hepatosplenomegaly present Auscultation: normal bowel sounds General: Yes no CVA tenderness Back/Spine/Pelvis Back: no CVA tenderness Thoracic/Lumbar Spine: thoracic and lumbar spine normal to inspection Skin Lesions: no lesions Rashes: no rashes Neuro General: patient oriented x3, moves all extremities, no focal motor deficits and CN's II-XI intact bilaterally Cranial nerves: Yes Equal, round and reactive pupils present Cognition (Neuro): normal cognition Gait exam (Neuro): Normal gait present Extrem General: Yes no clubbing, cyanosis or edema Results Reviewed Results Reviewed: Laboratory Tests 07/03/22 08/29/23 08/29/23 08:26 09:40 09:44 WBC 5.5 5.7 Hgb 13.5 14.0 Hct 41.0 43.0 Plt Count 316 339 Sodium 138 139 Potassium 4.6 4.4 Creatinine 0.77 0.73 Estimated GFR > 60 > 60 Random Glucose 103 Fasting Glucose 89 Calcium 8.8 8.9 Total Bilirubin 1.3 H AST 17 17 ALT 13 17 Triglycerides 85 Cholesterol 193 LDL Cholesterol, Calc 120 H HDL Cholesterol 56 25-OH Vitamin D Total 46.4 TSH 0.95 Ur Specific Gibbs 1.015 Urine Protein Negative Urine Glucose (UA) Negative Urine Blood Small (1+) H Urine Nitrite Negative Ur Leukocyte Esterase Small (1+) H Assessment and Plan Assessment & Plan (1) Annual physical exam: Code(s): Z00.00 - Encounter for general adult medical examination without abnormal findings Plan: Results of her labs done last month reviewed and discussed with patient She is up-to-date with her cancer screenings - had her colonoscopy done in 03/2022 and she is due for repeat colonoscopy in 10 years (2031) She is scheduled for her next gynecology exam and [facility] 2024 She had her mammogram last done in May 2023 and bone density in July 2023 (2) Benign essential hypertension: Code(s): I10 - Essential (primary) hypertension Plan: Reinforced low sodium diet - goal is systolic BP of 120 mm or less Continue Lisinopril 5 mg QD (3) Pure hypercholesterolemia: Code(s): E78.00 - Pure hypercholesterolemia, unspecified Plan: She is advised that her fasting lipids are within normal range on her recent labs Reinforced low cholesterol diet Will recheck her fasting lipids in 6 months for follow up (4) Vitamin D deficiency: Code(s): E55.9 - Vitamin D deficiency, unspecified Plan: Continue Vitamin D3 1000 units QD (5) Invasive ductal carcinoma of right breast: Code(s): C50.911 - Malignant neoplasm of unspecified site of right female breast Plan: Lumpectomy and sentinel node Bx done on 06/05/21 revealed invasive ductal carcinoma, grade 2, 1.4 cm, margins negative ER positive, IA positive, HER2/nabeel negative Her sentinel lymph node biopsy came back negative; Oncotype diagnostic testing also came back negative Patient completed postlumpectomy radiation on 09/12/2021 She was started on Letrozole 2.5 mg QD beginning in June 2021 Follow up with Oncology as scheduled for continuing surveillance (6) Obesity (BMI 30-39.9): Code(s): E66.9 - Obesity, unspecified Plan: Reinforced diet/exercise as tolerated /lose weight Plan Follow up in 6 months Orders: Orders [facility]. Panel Fast 6 Months E78.00 - Pure hypercholesterolemia, unspecified Lipid Panel 6 Months E78.00 - Pure hypercholesterolemia, unspecified Coding Level of Care Code Est Pt Prev Care 40-64y(74279) Diagnoses Annual physical exam Z00.00 Benign essential hypertension I10 Pure hypercholesterolemia E78.00 Vitamin D deficiency E55.9 Invasive ductal carcinoma of right breast C50.911 Obesity (BMI 30-39.9) E66.9
[2023-10-01 12:53] VITALS: BP 110/66; PULSE 73; O2SAT 96; BMI 34.2
== END 2023-10-01 13:42 | disposition home or self-care (01) ==
PROVIDERS: PCP Internal Medicine; Visit Provider Internal Medicine
DX: Z00.00 Encounter for general adult medical examination without abnormal findings (principal); C50.911 Malignant neoplasm of unspecified site of right female breast; E66.9 Obesity, unspecified; Z68.34 Body mass index [BMI] 34.0-34.9, adult; I10 Essential (primary) hypertension; E78.00 Pure hypercholesterolemia, unspecified; E55.9 Vitamin D deficiency, unspecified
CPT/HCPCS: 99396

== ENCOUNTER 2023-12-03 09:30 | Outpatient (AMB) | payer BC, OTHER, SELFPAY ==
[2023-12-03 10:07] VITALS: BP 132/86; PULSE 69; TEMP 36.9; O2SAT 98; BMI 34.2
--- NOTE | 2023-12-03 10:07 | AM.OFFWIN_ITS ---
Intake Vital Signs 12/03/23 10:07 Height 5 ft 3 in Weight 193 lb BMI 34.2 BP 132/86 Blood Pressure Location Rt brachial Position Sitting Pulse 69 Pulse Source Pulse Oximeter Temp 98.4 F Temp Source Oral Pulse Oximetry (%) 98 Oxygen Delivery Method Room Air Intake Visit Reasons: EP-cough, chest tightness Intake Note: pt c/o cough and chest tightness. Started last Saturday Patient Tobacco Use Status: Never used Tobacco Allergies aspirin [ASPIRIN] Allergy (Mild, Verified 12/03/23 10:12) GI UPSET, Stomach upset morphine [Morphine] Allergy (Mild, Verified 12/03/23 10:12) VOMITING Do you need a note to return to daycare/school/sports/work: No HPI EP-cough, chest tightness HPI Details This is a 63-year-old female patient who presents to the walk-in clinic today with report of dry cough, nasal congestion over the last week. Denies any fever, chills, or shortness of breath. Denies any known exposure to sick contacts, however states that she did have some dental work last week, and started to have symptoms following that. Denies any mouth pain. Reports a history of mild / intermittent asthma, but has not used inhalers in several years. [facility] Medical History Breast cancer Obesity (BMI 30-39.9) Vitamin D deficiency Pure hypercholesterolemia Benign essential hypertension Surgical History History of lumpectomy of right breast (06/05/21) Status post colonoscopy (~10/22/11) History of carpal tunnel release History of cholecystectomy Family History Father Medical history unknown Mother Diabetes Hypertension Maternal Aunt Breast cancer Social History Household Members: Family and Other Household Members Other:: Grandchildren 3 Housing: House Are you a primary hearing healthcare practitioner to a significant other at home: No Do you presently have visiting nurse or other home services: No Alcohol intake: current Alcohol intake frequency: holidays/special occasions only Alcohol type: wine Patient Tobacco Use Status: Never used Tobacco e-Cigarette/Vaping Use: Never Used Second Hand Smoke Exposure: No service: No Current occupational status: employed 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 Current occupational exposures/hazards: No Gender identity: Female Cognitive needs: No Hearing needs: No Vision needs: No Female Reproductive History Menstrual Age of Menarche: 12 Review of Systems Const All systems reviewed & are unremarkable except as noted in HPI and below Physical Exam Vital Signs: Last Vital Signs Temp 98.4 F 12/03/23 10:07 Pulse 69 12/03/23 10:07 BP 132/86 12/03/23 10:07 Pulse Ox 98 12/03/23 10:07 Oxygen Delivery Method Room Air 12/03/23 10:07 BMI result Body Mass Index 34.2 Const General: cooperative, healthy appearing and no acute distress Nutritional Appearance: average body habitus HEENT Head: Yes normal to inspection Ears: hearing grossly normal bilaterally General nose exam: Normal external nose present and Normal nasal mucous membranes and turbinates present Face and sinus: Yes normal facial exam Mouth: Normal oral and palatal mucosa present Throat: Yes posterior oropharynx normal Neck Neck: Yes no lymphadenopathy Resp Effort & Inspection: normal respiratory effort and Actively coughing Quality: dry Auscultation: clear to auscultation bilaterally Cardio Rate: regular rate Rhythm: regular rhythm Skin General skin exam: no rashes or lesions noted Extrem General: Yes capillary refill normal and Yes no clubbing, cyanosis or edema Psych Appearance: grossly normal Mental Status: mental status grossly normal Speech and movement: Normal speech and movement present Assessment & Plan Assessment & Plan (1) Upper respiratory infection, viral: Code(s): J06.9 - Acute upper respiratory infection, unspecified Plan: Symptoms are consistent with a viral upper respiratory illness. COVID/flu/ RSV swab obtained in the office, and patient aware she will be notified of results once these are available. We reviewed likely self-limiting nature of illness. I am going to renew patient's prescription for albuterol inhaler to utilize p.r.n., will also send Rx for benzonatate. We reviewed indications, use, possible side effects of medications. Patient can take [id number] cold /flu medication as needed for ongoing symptom management. Recommended increased rest, hydration, healthy foods/ vitamin intake. If she does not improve with time and conservative measures, or if symptoms worsen/new symptoms develop, she can return to the clinic for further evaluation. She verbalizes understanding and agrees to plan. Orders: Orders SARS-CoV2/FLU/RSV Today J06.9 - Acute upper respiratory infection, unspecified Medications: New benzonatate 100 mg PO BID 7 days PRN 14 caps 0RF cough R05.9 - Cough, unspecified albuterol sulfate 90 mcg/actuation 1 inh inhalation QID PRN 6.7 grams 1RF shortness of breath or wheezing J06.9 - Acute upper respiratory infection, unspecified Coding Level of Care Code Est Pt Level 4 (03697) Diagnoses Upper respiratory infection, viral J06.9
== END 2023-12-03 10:54 | disposition home or self-care (01) ==
PROVIDERS: PCP Internal Medicine; Visit Provider Nurse Practitioner Family
DX: J06.9 Acute upper respiratory infection, unspecified (principal)
CPT/HCPCS: 99214

== ENCOUNTER 2023-12-03 10:32 | Outpatient (REF) | payer BC, OTHER, SELFPAY ==
[2023-12-03 14:35] LABS: Influenza A PCR NEGATIVE (Negative); Influenza B PCR NEGATIVE (Negative); Resp Syncy Virus RNA Qual PCR NEGATIVE (Negative); SARS COV2 PCR INHOUSE NEGATIVE (Negative)
== END 2023-12-03 10:33 | disposition home or self-care (01) ==
LOC: HO.LAB 10:32
PROVIDERS: Visit Provider Nurse Practitioner Family
DX: J06.9 Acute upper respiratory infection, unspecified (principal)
CPT/HCPCS: 0241U

== ENCOUNTER 2023-12-31 08:35 | Outpatient (REF) | payer BC, OTHER, SELFPAY ==
--- NOTE | ~2023-12-31 | XR_ITS ---
EXAMINATION: XR KNEE, RIGHT CLINICAL INFORMATION: Right knee pain and swelling. COMPARISON: Prior x-ray of the right knee June 2020. TECHNIQUE: Four views of the right knee including patellar view. FINDINGS: Patellofemoral compartment: There is severe joint space narrowing of the lateral portion of the compartment with subchondral cystic change and marginal osteophytes. Additional arthrosis of the medial compartment with marginal osteophytes. Overall severe patellofemoral osteoarthritis. There are mild marginal osteophytes without joint space narrowing of the medial and lateral compartments indicative of mild osteoarthritis. There are 2 small areas of ossification measuring 3-4 mm posterior to the tibia may reflect loose bodies within the popliteus recess. There is no joint effusion. XR/XR knee RT 3V IMPRESSION: Tricompartmental osteoarthritis of the right knee with degenerative changes most severe in the patellofemoral compartment. Suspect no change compared to prior although exact comparison is limited as on the prior examination there is no patellar view. Electronically signed by: Reuben Wagoner MD 01/06/2024 01:25 PM EDT
== END 2023-12-31 08:36 | disposition home or self-care (01) ==
LOC: HO.XRAY 08:35
PROVIDERS: PCP Internal Medicine; Visit Provider Internal Medicine Medical Oncology
DX: M25.561 Pain in right knee (principal)
CPT/HCPCS: 73562

== ENCOUNTER 2024-02-26 10:33 | Outpatient (REF) | payer BC, SELFPAY ==
[2024-03-02 10:51] LABS: HPV 16,18/45 See PAP report
== END 2024-02-26 10:34 | disposition home or self-care (01) ==
LOC: HO.LNP 10:33
PROVIDERS: PCP Internal Medicine; Visit Provider Advanced Practice Midwife
DX: Z01.419 Encounter for gynecological examination (general) (routine) without abnormal findings (principal)
CPT/HCPCS: 87624; 88175

== ENCOUNTER 2024-02-26 10:35 | Outpatient (AMB) | payer BC, SELFPAY ==
[2024-02-26 10:47] VITALS: BP 130/70; BMI 32.4
--- NOTE | 2024-02-26 10:47 | MHC.OFFVIS ---
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 Present Allergies aspirin [ASPIRIN] Allergy (Mild, Verified 02/26/24 10:47) GI UPSET, Stomach upset morphine [Morphine] Allergy (Mild, Verified 02/26/24 10:47) VOMITING Medication List - Last Reconciled 02/26/24 by Natalia Quinonez CNM albuterol sulfate 90 mcg/actuation 1 inh inhalation QID PRN benzonatate 100 mg PO BID PRN 7 days cholecalciferol (vitamin D3) 25 mcg PO DAILY ibuprofen 600 mg PO Q8H PRN letrozole 2.5 mg PO DAILY lisinopril 5 mg PO DAILY 90 days multivitamin 1 tab PO DAILY Post menopausal: Yes HPI HPI 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 Her last Pap was in 2019 and it was negative and she has always had negative Paps which are all in the old [employer] system. She had breast cancer and is being followed by Dr. Mccarty and up in the teen and getting frequent follow-up for that. Her more recent concern was that she was walking with her granddaughter and her knee got twisted and the urgent care assessment was that her kneecap had this a lined slightly because of weakness of the ligaments and she is awaiting follow-up ortho appointment and we will be looking forward to physical therapy. She was given a brace that was helpful when it was very swollen but is less helpful now. She is not sexually active she is postmenopausal. She is stays very active and is working on losing weight to help with her joints and health. [facility] Medical History Breast cancer Obesity (BMI 30-39.9) Vitamin D deficiency Pure hypercholesterolemia Benign essential hypertension Surgical History History of lumpectomy of right breast (06/05/21) Status post colonoscopy (~10/22/11) History of carpal tunnel release History of cholecystectomy Family History Father Medical history unknown Mother Diabetes Hypertension Maternal Aunt Breast cancer Social History Household Members: Family and Other Household Members Other:: Grandchildren 3 Housing: House Are you a primary patient care representative to a significant other at home: No Do you presently have visiting nurse or other home services: No Alcohol intake: current Alcohol intake frequency: holidays/special occasions only Alcohol type: wine Patient Tobacco Use Status: Never used Tobacco e-Cigarette/Vaping Use: Never Used Second Hand Smoke Exposure: No service: No Current occupational status: employed 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 Current occupational exposures/hazards: No Gender identity: Female Cognitive needs: No Hearing needs: No Vision needs: No Female Reproductive History Menstrual Age of Menarche: 12 control method: none Total pregnancies: 6 Full term: 6 Date of last pap smear: 10/28/19 (neg.) History of abnormal pap smear: No Date of Mammogram: 05/27/23 Physical Exam Vital Signs: Last Vital Signs BP 130/70 02/26/24 10:47 BMI result Body Mass Index 32.4 Const General: healthy appearing, comfortable, no acute distress, well developed and alert Nutritional Appearance: average body habitus Orientation/consciousness: patient oriented x3 Limitations: no limitations HEENT Head: Yes normocephalic Neck Neck: Yes normal visual inspection Chest Chest palpation & inspection: normal inspection of the chest Breast/axilla inspection: normal inspection of the breasts and normal inspection of the axillae Breast/axilla palpation: normal palpation of the breasts and normal palpation of the axillae Resp Effort & Inspection: normal respiratory effort GI Inspection: Yes normal to inspection, No Abdominal wall edema and No distended Palpation (GI): Soft to palpation and nontender Other: Vagina pink and moist with some post menopausal atrophic changes cervix visible pink multiparous clear with some shiny clear mucus cervix long close thick mobile nontender uterus small midposition mobile nontender adnexa nontender very good tone with Kegel. General: Yes bladder normal to palpation External Female Exam: normal external appearance and normal appearance of the urethra Speculum Exam - Vagina: normal appearance of the vagina, normal palpation and normal vaginal discharge Speculum Exam - Cervix: normal appearance of the cervix, normal palpation and nontender Bimanual exam- vagina & uterus: normal bimanual exam, normal palpation, uterine size normal, bladder normal to palpation, consistency normal, normal palpation, uterine mobility normal, uterine shape normal, No Cervical tenderness present, non-tender and no cervical motion tenderness Bimanual Exam- Adnexa, other: normal adnexae, no masses, normal and No adnexal tenderness Neuro General: patient oriented x3 Assessment & Plan Assessment & Plan (1) Well woman exam with routine gynecological exam: Code(s): Z01.419 - Encounter for gynecological examination (general) (routine) without abnormal findings Category: Medical (2) Invasive ductal carcinoma of right breast: Code(s): C50.911 - Malignant neoplasm of unspecified site of right female breast Category: Medical (3) Cervical cancer screening: Comment: normal paps 1996 to 2019, next and last pap 2024...; good view of cervix today, so Pap done 02/26/2024 Code(s): Z12.4 - Encounter for screening for malignant neoplasm of cervix Category: Medical (4) Obesity (BMI 30-39.9): Code(s): E66.9 - Obesity, unspecified Category: Medical Plan: Patient is actively working on losing weight to improve her health overall. (5) Knee pain: Comment: We will be seeing orthopedics very soon. Discussed. Code(s): M25.569 - Pain in unspecified knee Category: Medical Plan -----Discussed in this visit the following: healthy balanced diet, regular and consistent exercise, getting recommended health screens, doing the best she can for her particular health concerns, kegel exercises, pap smear screening and followup recommendations, mammography screening and SBE, normal changes in cycles in her life stage--- . She is following with Dr. Johnson and Dr. Mccarty for her breast cancer and getting appropriate scans and exams. Pap smear was done today as I had such a good clear view of her cervix postmenopausal changes noted but there was not excessive dryness noted Very good tone with Ivelisse Discussed her knee injury despite this she is in endeavoring to keep active now that it is feeling better and she is doing some walking in her house and plans to outside when it is nice. She is working on keeping her knee straight and aligned well as it is the twisting that caused the problem in the 1st place She is looking forward to the orthopedics visit and physical therapy Host in Thanksgiving in her house tomorrow and we will be cooking 26 lb turkey and I recommended and listing help of her granddaughter to take the turkey in and out the oven She also informed me that she found the magnesium that I suggested last year for leg cramps has been helping her immensely and she is very happy about that. Orders: Orders Pap Smear Today Z01.419 - Encounter for gynecological examination (general) (routine) without abnormal findings Coding Level of Care Code Est Pt Prev Care 40-64y(17011) Diagnoses Well woman exam with routine gynecological exam Z01.419 Invasive ductal carcinoma of right breast C50.911 Cervical cancer screening Z12.4 Obesity (BMI 30-39.9) E66.9 Knee pain M25.569
== END 2024-02-26 11:22 | disposition home or self-care (01) ==
PROVIDERS: PCP Internal Medicine; Visit Provider Advanced Practice Midwife
DX: Z01.419 Encounter for gynecological examination (general) (routine) without abnormal findings (principal); C50.911 Malignant neoplasm of unspecified site of right female breast; Z12.4 Encounter for screening for malignant neoplasm of cervix; E66.9 Obesity, unspecified; M25.569 Pain in unspecified knee
CPT/HCPCS: 99396

== ENCOUNTER 2024-03-05 09:03 | Outpatient (AMB) | payer BC, SELFPAY ==
[2024-03-05 09:10] VITALS: BP 131/68; PULSE 72; BMI 32.2
--- NOTE | 2024-03-05 09:10 | A.OFFVIS_ITS ---
Vital Signs 3 03/05/24 09:10 Height 5 ft 3 in Weight 182 lb BMI 32.2 BP 131/68 Blood Pressure Location Rt brachial Position Sitting Pulse 72 Intake Visit Reasons: 6 month follow up, breast exam Intake Note: Patient is seen in office for 6 month follow up visit, breast exam. Pt c/o: rt br soreness improved since last visit. Denies nipple discharge, rash, pain. mm:05/27/23 Registered Dental Hygienist Required: No Accompanied by: Self / Same As Patient Allergies aspirin [ASPIRIN] Allergy (Mild, Verified 02/26/24 10:47) GI UPSET, Stomach upset morphine [Morphine] Allergy (Mild, Verified 02/26/24 10:47) VOMITING HPI Comments Details: 63-year-old female patient returning for follow-up breast examination following right breast lumpectomy with needle localization and sentinel node biopsy right axilla on 06/05/2021. She was found to have an ill-defined density by ultrasound and underwent ultrasound-guided core biopsy which revealed a grade 1 invasive ductal carcinoma, ER/MA positive, HER2 Fanny negative, Ki-67 5-10%. She has no previous history of breast surgery and her family history is significant for distant aunt with breast cancer. She is breastfed her children. 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 Oncotype testing was 4. (pT1c N0). She completed radiation therapy on 09/12/2021 and was evaluated by Dr. Johnson who started letrozole. She is tolerating this well and the plan is to continue for 5 years. Her last mammogram dated 05/27/2023 revealed no mammographic evidence of malignancy (BI-RADS 2). A 1 year follow-up diagnostic mammogram has been scheduled for 05/28/2024. She feels well and denies any new breast symptoms. She does have right knee pain after an injury while walking. She reports losing over 200 lb with diet and exercise. [facility] Medical History Breast cancer Obesity (BMI 30-39.9) Vitamin D deficiency Pure hypercholesterolemia Benign essential hypertension Surgical History History of lumpectomy of right breast (06/05/21) Status post colonoscopy (~10/22/11) History of carpal tunnel release History of cholecystectomy Family History Father Medical history unknown Mother Diabetes Hypertension Maternal Aunt Breast cancer Social History Household Members: Family and Other Household Members Other:: Grandchildren 3 Housing: House Are you a primary nanny caregiver to a significant other at home: No Do you presently have visiting nurse or other home services: No Alcohol intake: current Alcohol intake frequency: holidays/special occasions only Alcohol type: wine Patient Tobacco Use Status: Never used Tobacco e-Cigarette/Vaping Use: Never Used Second Hand Smoke Exposure: No service: No Current occupational status: employed 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 Current occupational exposures/hazards: No Gender identity: Female Cognitive needs: No Hearing needs: No Vision needs: No Female Reproductive History Menstrual Age of Menarche: 12 Review of Systems Const All systems reviewed & are unremarkable except as noted in HPI and below Physical Exam Const General: cooperative and no acute distress Nutritional Appearance: well nourished Orientation/consciousness: patient oriented x3 Limitations: no limitations Neck Neck: Yes normal visual inspection and Yes no lymphadenopathy Chest Other: Right breast incisions are clean, dry, and intact without redness or discharge. Mild residual radiation change noted. No palpable mass, new skin change, nipple discharge or enlarged lymph nodes. Left breast reveals no skin change, nipple discharge, nipple retraction, palpable mass or enlarged lymph nodes. Chest/axillae images: 2 1. 2. Resp Effort & Inspection: normal respiratory effort, no audible wheezes, no cough and no respiratory distress Skin Other: warm, dry, no rash Neuro Other: Mobility Assessment: 6 1. 3 meter assessment time (seconds) 2. Gait observations: Normal balance and gait General: patient oriented x3 Extrem Other: no peripheral edema Assessment & Plan Assessment & Plan (1) Invasive ductal carcinoma of right breast: Code(s): C50.911 - Malignant neoplasm of unspecified site of right female breast Category: Medical Plan 63-year-old female patient returning for follow-up breast examination. She has a prior history of infiltrating ductal carcinoma of the right breast, s/p right breast lumpectomy with sentinel node biopsy on 06/05/2021. Pathology revealed a 1.4 cm invasive ductal carcinoma, ER/MA positive, HER2 Fanny negative with negative margins, 0 of 8 sentinel lymph nodes with metastatic disease (pT1cNo). She completed radiation therapy on 09/02/2021 and is now on letrozole (Alex). Today's examination revealed a well-healed incision in the right breast with no evidence of recurrent disease in either breast. Her most recent mammogram dated 05/27/2023 revealed no mammographic evidence of malignancy (BI-RADS 2). A 1 year follow-up diagnostic mammogram is scheduled for 05/28/2024. I recommended she return approximately 6 months for follow-up examination, sooner p.r.n.. Coding Level of Care Code Est Pt Level 3 (04467) Diagnoses Invasive ductal carcinoma of right breast C50.911
== END 2024-03-05 09:33 | disposition home or self-care (01) ==
PROVIDERS: PCP Internal Medicine; Visit Provider Surgery
DX: C50.911 Malignant neoplasm of unspecified site of right female breast (principal)
CPT/HCPCS: 99213

== ENCOUNTER → 2024-03-05 09:03 | Outpatient (BNVA) | payer BC, SELFPAY | PROVIDERS: PCP Internal Medicine; Visit Provider Surgery ==

== ENCOUNTER 2024-03-12 08:33 | Outpatient (AMB) | payer BC, MEDICAID, SELFPAY ==
--- NOTE | 2024-03-12 08:34 | A.OFFVIS_ITS ---
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 Patient reports that she has had pain and swelling in the right knee for about 4 months now, pain is worsened when standing from a seated position. Feels better with with walking and movement. She has utilized heat application as well as topical creams and exercise with minimal relief . She takes ibuprofen when needed which does help but she tried to avoid taking pills. She is trying to loose weight and her pain is interfering with this. 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 It has been off and on for years but over the last month it has gotten worse. She had an episode when she was-the rest of arm she stepped awkwardly while walking and irritated her knee. It swelled up and she was unable to ambulate comfortably. She subsequently took Advil and it improved but it is still causing her pain and discomfort. She has otherwise not been treated. She was seen at an outside facility where radiographs were obtained. [facility] Medical History Breast cancer Obesity (BMI 30-39.9) Vitamin D deficiency Pure hypercholesterolemia Benign essential hypertension Surgical History History of lumpectomy of right breast (06/05/21) Status post colonoscopy (~10/22/11) History of carpal tunnel release History of cholecystectomy Family History Father Medical history unknown Mother Diabetes Hypertension Maternal Aunt Breast cancer Social History Household Members: Family and Other Household Members Other:: Grandchildren 3 Housing: House Are you a primary urgent care physician to a significant other at home: No Do you presently have visiting nurse or other home services: No Alcohol intake: current Alcohol intake frequency: holidays/special occasions only Alcohol type: wine Patient Tobacco Use Status: Never used Tobacco e-Cigarette/Vaping Use: Never Used Second Hand Smoke Exposure: No service: No Current occupational status: employed 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 Current occupational exposures/hazards: No Gender identity: Female Cognitive needs: No Hearing needs: No Vision needs: No Female Reproductive History Menstrual Age of Menarche: 12 Physical Exam Vital Signs: BMI result Body Mass Index 32.4 Extrem Other: Trace effusion with pain on flexion past 70 degrees that is mild. Retropatellar tenderness lateral PFJ Results Reviewed Results Reviewed: I personally reviewed relevant radiographs. Mild medial compartment OA and severe patellofemoral compartment OA with bony remodeling and patellar lateralization Assessment & Plan Assessment & Plan (1) Osteoarthritis of right knee: Code(s): M17.11 - Unilateral primary osteoarthritis, right knee Category: Medical Plan: This is a 60 tear along with severe patellofemoral OA. This is chronic and her symptoms vary but recently they worsened. I discussed treatment options with her including injections, NSAIDs, physical therapy as well as surgical intervention. She is not interested in surgery. At this time I think it is reasonable to consider physical therapy, bolster brace for her patellofemoral joint lateralization and finally injections should she desire. She does not want to go the injection route at this time. A prescription for physical therapy was written and a lateral bolster knee brace was given. She may follow up as needed. Coding Level of Care Code New Pt Level 4 (26021) Diagnoses Osteoarthritis of right knee M17.11
[2024-03-12 08:35] VITALS: BMI 32.4
== END 2024-03-12 09:44 | disposition home or self-care (01) ==
PROVIDERS: PCP Internal Medicine; Visit Provider Orthopaedic Surgery
DX: M17.11 Unilateral primary osteoarthritis, right knee (principal)
CPT/HCPCS: 99204

== ENCOUNTER → 2024-03-12 08:33 | Outpatient (BNVA) | payer BC, SELFPAY | PROVIDERS: PCP Internal Medicine; Visit Provider Orthopaedic Surgery ==

== ENCOUNTER 2024-03-27 07:57 | Outpatient (REF) | payer BC, MEDICAID, SELFPAY ==
[2024-03-27 08:49] LABS: Alanine Aminotransferase 14 U/L (0-31); Albumin Level 3.9 g/dL (3.5-5.0); Alkaline Phosphatase 103 U/L (39-117); Anion Gap 12 (12-20); Aspartate Amino Transferase 18 U/L (5-31); Bilirubin Total 0.8 mg/dL (0.0-1.0); Blood Urea Nitrogen 14 mg/dL (9-16); Calcium 8.9 mg/dL (8.4-10.2); Carbon Dioxide 25 mmol/L (22-29); Chloride 104 mmol/L (96-108); Cholesterol 204 mg/dL (<200); Estimated Glomerular Filt Rate > 60; Glucose Fasting 114 mg/dL (60-99); HDL Cholesterol 58 mg/dL (>40); LDL Cholesterol Calculated 132 mg/dL (<100); Potassium 4.3 mmol/L (3.3-5.1); Sodium 137 mmol/L (135-145); Total Protein 7.2 g/dL (6.5-8.0); Triglycerides 72 mg/dL (<150)
== END 2024-03-27 07:58 | disposition home or self-care (01) ==
LOC: HO.LAB 07:57
PROVIDERS: PCP Internal Medicine; Visit Provider Internal Medicine
DX: E78.00 Pure hypercholesterolemia, unspecified (principal)
CPT/HCPCS: 36415; 80053; 80061

== ENCOUNTER 2024-04-02 09:42 | Outpatient (AMB) | payer BC, OTHER, SELFPAY ==
--- NOTE | 2024-04-02 09:46 | MHC.PC.OV ---
Vital Signs 04/02/24 09:48 04/02/24 09:48 Height 5 ft 3 in 5 ft 3 in Weight 180 lb 2 oz BMI 31.9 BP 130/64 Blood Pressure Location Lt brachial Lt brachial Position Sitting Sitting Pulse 71 Pulse Source Pulse Oximeter Pulse Oximeter Pulse Oximetry (%) 97 Oxygen Delivery Method Room Air Intake Visit Reasons: HTN, dyslipidemia Intake Note: Patient is here to follow up on HTN, Dyslipidemia. Pt decline flu shot today. Fruit Or Nut Farm Worker Required: No Front Desk Specialist: Not Required per policy Accompanied by: Self / Same As Patient Allergies aspirin [ASPIRIN] Allergy (Mild, Verified 04/02/24 09:53) GI UPSET, Stomach upset morphine [Morphine] Allergy (Mild, Verified 04/02/24 09:48) VOMITING Medication List - Last Reconciled 04/02/24 by ARETHA Bianchi albuterol sulfate 90 mcg/actuation 1 inh inhalation QID PRN cholecalciferol (vitamin D3) 25 mcg PO DAILY ibuprofen 600 mg PO Q8H PRN letrozole 2.5 mg PO DAILY lisinopril 5 mg PO DAILY 90 days multivitamin 1 tab PO DAILY Tobacco use date assessed: 04/02/24 Dental Screening Dental Screen Date: 04/02/24 Did you have a dental visit in the last 12 months?: Yes Did you have a dental problem in the last 6 months where you did not have access to dental care?: No Was dental information given to patient?: Patient has dentist HPI HTN, dyslipidemia HPI Details The patient is a 63-year-old female with significant past medical history of vitamin-D deficiency, Pure hypercholesterolemia, benign essential hypertension and osteoarthritis of the right knee Patient is presenting today for follow-up appointment She has follow-up blood work done that needs to be reviewed Patient reports that she has recurrent nasal congestion but she does not like nose sprays She denies any other respiratory symptoms Denies fevers or chills Denies shortness of breath, chest pain, heart palpitation, dizziness She reports that her right knee pain this out [id number] currently takes ibuprofen 600 mg p.r.n. htn- Reports drinking 3 cups of coffee/day Reports drinking alcohol for holidays only She has been trying to cut down on the salt intake Reports poor water intake-2-3 glasses a day hld- Reports trying to make dietary changes, however she likes Ham This has been a struggle for her She is determined to make changes because she does not want a take any medications for cholesterol Reports that her right knee pain makes it more difficult to be as active [facility] Medical History Breast cancer Obesity (BMI 30-39.9) Vitamin D deficiency Pure hypercholesterolemia Benign essential hypertension Surgical History History of lumpectomy of right breast (06/05/21) Status post colonoscopy (~10/22/11) History of carpal tunnel release History of cholecystectomy Family History Father Medical history unknown Mother Diabetes Hypertension Maternal Aunt Breast cancer Social History Household Members: Family and Other Household Members Other:: Grandchildren 3 Housing: House Are you a primary care transition manager to a significant other at home: No Do you presently have visiting nurse or other home services: No Alcohol intake: current Alcohol intake frequency: holidays/special occasions only Alcohol type: wine Patient Tobacco Use Status: Never used Tobacco e-Cigarette/Vaping Use: Never Used Second Hand Smoke Exposure: No service: No Current occupational status: employed 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 Current occupational exposures/hazards: No Gender identity: Female Cognitive needs: No Hearing needs: No Vision needs: No Female Reproductive History Menstrual Age of Menarche: 12 Questionnaire PHQ-9 Over the last 2 weeks, how often have you been bothered by any of the following problems? 1. Little interest or pleasure in doing things: not at all 2. Feeling down, depressed, or hopeless: not at all 3. Trouble falling or staying asleep, or sleeping too much: not at all 4. Feeling tired or having little energy: not at all 5. Poor appetite or overeating: not at all 6. Feeling bad about yourself - or that you are a failure or have let yourself or your family down: not at all 7. Trouble concentrating on things, such as reading the newspaper or watching television: not at all 8. Moving or speaking so slowly that other people could have noticed. Or the opposite - being so fidgety or restless that you have been moving around a lot more than usual: not at all 9. Thoughts that you would be better off or of hurting yourself in some way: not at all Total score: 0 Depression Screening Interpretation: Negative Depression Screening Done: Yes 41666 - PHQ-9 Billing: Yes Source: Developed by Drs. Ag Roe, Barbara Huizar, Cam Bullock and colleagues, with an educational dickson from [employer]. Thrive Questionnaire Date Thrive assessed: 04/02/24 I am a: Patient What is your living situation today?: I have a steady place to live Within the past 12 months, did the food you bought not last and you didn't have the money to get more?: Never true Within the past 12 months, did you worry whether your food would run out before you got money to buy more?: Never true Do you have trouble paying for medicines?: No Do you have trouble getting transportation to medical appointments?: No Do you have trouble paying your heating and electricity bill?: No Do you have trouble taking care of your child, family member or friend?: No Do you have trouble with day-to-day activities such as bathing, preparing meals, shopping, managing finances, etc.?: No Are you currently unemployed and looking for a job?: No Are you interested in more education?: No Currently or been in a relationship where the following occur: No concerns reported THRIVE Score: 0 AUDIT C Alcohol Use Questionnaire (AUDIT-C) 1. How often do you have a drink containing alcohol?: Never Total Score: 0 Score Reviewed/Action Taken: Yes GABRIELLA-7 AMB Questionnaire GABRIELLA-7 Date GABRIELLA - 7 assessed: 04/02/24 Feeling nervous, anxious, or on edge: 0 = Not at all Not being able to stop or control worryin = Not at all Worrying too much about different things: 0 = Not at all Trouble relaxin = Not at all Being so restless that it is hard to sit still: 0 = Not at all Becoming easily annoyed or irritable: 0 = Not at all Feeling afraid as if something awful might happen: 0 = Not at all Total GABRIELLA-7 score (0-4 normal; 5-9 mild; 10-14 moderate; 15-21 severe): 0 Source: Developed by Drs. Ag Roe, Barbara Huizar, Cam Bullock and colleagues, with an educational dickson from [employer]. GABRIELLA-7 Assessment Billing GABRIELLA-7 Assessment Tool: GABRIELLA-7 Assessment 69922 Review of Systems Const Details: Const Denies chills, Denies fatigue, Denies fever(s), Denies headache(s) and Denies weakness ENT Denies dizziness and Denies headache(s) reports recurrent nasal congestion Card Denies chest pain, Denies lightheadedness, Denies dyspnea and Denies other (Palpitations) Resp Denies cough, Denies dyspnea, Denies wheezing and Denies other ( shortness of breath) GI Denies abdominal pain, Denies melena, Denies hematochezia, Denies change in bowel habits, Denies dyspepsia and Denies nausea Denies hematuria and Denies dysuria Musc Reports recurrent right knee pain Skin/Breast Denies rash, Denies unusual bruising and Denies wounds Neuro Denies abnormal gait, Denies dizziness, Denies headache(s), Denies memory loss, Denies numbness, Denies Sensory deficit (Neuro), Denies tingling and Denies weakness Psych Denies anxiety, Denies depression, Denies memory loss Endo Denies cold intolerance, Denies fatigue, Denies heat intolerance, Denies polydipsia and Denies polyuria Aller/Immun Denies wheezing Physical exam (Primary Care) Vital Signs: Last Vital Signs Pulse 71 04/02/24 09:48 BP 130/64 04/02/24 09:48 Pulse Ox 97 04/02/24 09:48 Oxygen Delivery Method Room Air 04/02/24 09:48 BMI result Body Mass Index 31.9 Tobacco/Smoking Status: Tobacco use Status Tobacco use date assessed 04/02/24 04/02/24 09:52 Patient Tobacco Use Status Never used Tobacco 04/02/24 09:52 e-Cigarette/Vaping Use Never Used 04/02/24 09:52 PHQ-9: PHQ-9 Score PHQ-9: Total score 0 04/02/24 10:02 Depression Screening Interpretation: Negative Thrive Assessment: Date of Thrive Assessment Date Thrive assessed 04/02/24 04/02/24 09:52 Currently or been in a relationship where the following occur: No concerns reported Const Other: General: no acute distress and well developed Nutritional Appearance: well nourished Orientation/consciousness: patient oriented x3 [facility] Head: Yes normocephalic and Yes atraumatic, oral mucosa moist, bilateral nostrils pink, normal visible turbinates Eyes General: appearance normal, both eyes and all related structures Pupils: Equal, round and reactive pupils present EOM: EOMs intact bilaterally Resp Effort & Inspection: normal respiratory effort Auscultation: clear to auscultation bilaterally Cardio Rate: regular rate Rhythm: regular rhythm Heart sounds: S1 normal heart sound present, S2 normal heart sound present, no gallops, no murmurs and no rubs GI Palpation (GI): No Abdominal aortic bruit present, Soft to palpation, nontender, No hepatosplenomegaly present and No Rebound tenderness present Auscultation: normal bowel sounds General: Yes no CVA tenderness Back/Spine/Pelvis Back: no CVA tenderness Right knee tender to palpation-worse in the medial aspect Extrem General: Yes normal to inspection, No edema and No calf tenderness Skin General: warm and dry. Normal skin color. Normal skin turgor Lesions: no lesions Rashes: no rashes Trauma: no lacerations or abrasions Wounds: no wounds Nails: normal Neuro General: patient oriented x3, gait normal and no focal neuro deficit Cranial nerves: Yes Equal, round and reactive pupils present Cognition (Neuro): normal cognition Gait exam (Neuro): Normal gait present Sensory Exam: No Sensory deficit (Neuro) Psych Appearance: grossly normal Affect: normal affect Attitude: cooperative Thought process: Normal thought process present Results Reviewed Results Reviewed: Laboratory Tests 03/27/24 08:14 Sodium 137 Potassium 4.3 Chloride 104 BUN 14 Creatinine 0.62 Estimated GFR > 60 Fasting Glucose 114 H AST 18 ALT 14 Triglycerides 72 Cholesterol 204 H LDL Cholesterol, Calc 132 H HDL Cholesterol 58 Coding Level of Care Code Est Pt Level 4 (26682) Diagnoses IFG (impaired fasting glucose) R73.01 Primary osteoarthritis of right knee M17.11 Osteoarthritis type: primary Vitamin D deficiency E55.9 Pure hypercholesterolemia E78.00 Benign essential hypertension I10 Nasal congestion R09.81 Obesity (BMI 30-39.9) E66.9 Additional Codes GABRIELLA-7 Assessment Billing - GABRIELLA-7 Assessment Tool: GABRIELLA-7 Assessment 35127 ([id number]) PHQ-9 - 21211 - PHQ-9 Billing: Yes ([id number]) Assessment & Plan Assessment & Plan (1) IFG (impaired fasting glucose): Code(s): R73.01 - Impaired fasting glucose Category: Medical Plan: Fasting glucose is 114 mg/dL Encouraged a diet low in sweets/carbohydrates and activity as tolerated A1c added to upcoming physical labs (2) Osteoarthritis of right knee: Code(s): M17.11 - Unilateral primary osteoarthritis, right knee Category: Medical Qualifiers: Osteoarthritis type: primary Qualified Code(s): M17.11 - Unilateral primary osteoarthritis, right knee Plan: The patient has a history of osteoarthritis for which she takes ibuprofen 600 mg p.r.n. Patient reports that her pain is not well controlled and keeps her up at night occasionally Recommended the switch to meloxicam but the patient declined Diclofenac 3% topical b.i.d. p.r.n. ordered (3) Vitamin D deficiency: Code(s): E55.9 - Vitamin D deficiency, unspecified Category: Medical Plan: The patient last vitamin-D level was within normal range Vitamin-D refilled and encouraged to continue taking (4) Pure hypercholesterolemia: Code(s): E78.00 - Pure hypercholesterolemia, unspecified Category: Medical Plan: Labs reviewed with patient, total cholesterol slightly elevated in LDL slightly above the cutoff for need of medication therapy Reinforced dietary modification, the patient is not interested in taking another medication She verbalized that she will need a dietary changes to avoid taking another pill. (5) Benign essential hypertension: Code(s): I10 - Essential (primary) hypertension Category: Medical Plan: The patient blood pressure is at goal today Reports an high caffeine intake, he is working on reducing salt and increase fluid hydration DASH diet reinforced Continue lisinopril 5 mg daily (6) Nasal congestion: Code(s): R09.81 - Nasal congestion Category: Medical Plan: Reports recurrent nasal congestion-declines Flonase Loratadine 10 mg p.r.n. ordered (7) Obesity (BMI 30-39.9): Code(s): E66.9 - Obesity, unspecified Category: Medical Plan: Diet/exercise discussed in detail Encouraged to exercise for at least 30 minutes a day/5 days a week Healthy eating discussed. Encouraged to eat fruits/vegetables, protein-fish/baked chicken, and to avoid salty/fried foods, sweets, caffeine and carbohydrates. Encouraged to increase water intake 6-8 glasses a day Plan Adhere to six-month follow-up appointment I personally spent 37 minutes reviewing the chart, caring for the patient and documenting after the visit. Orders: Orders Comprehensive [place]. Panel Fast 6 Months E55.9 - Vitamin D deficiency, unspecified, E78.00 - Pure hypercholesterolemia, unspecified, I10 - Essential (primary) hypertension, Z00.00 - Encounter for general adult medical examination without abnormal findings UA CC w/rflx Micro + Cult 6 Months E55.9 - Vitamin D deficiency, unspecified, E78.00 - Pure hypercholesterolemia, unspecified, I10 - Essential (primary) hypertension, Z00.00 - Encounter for general adult medical examination without abnormal findings Hemoglobin A1c 6 Months E55.9 - Vitamin D deficiency, unspecified, E78.00 - Pure hypercholesterolemia, unspecified, I10 - Essential (primary) hypertension, Z00.00 - Encounter for general adult medical examination without abnormal findings Vitamin D 25-OH Total 6 Months E55.9 - Vitamin D deficiency, unspecified, E78.00 - Pure hypercholesterolemia, unspecified, I10 - Essential (primary) hypertension, Z00.00 - Encounter for general adult medical examination without abnormal findings Microalbumin, Random (w Creat) 6 Months E55.9 - Vitamin D deficiency, unspecified, E78.00 - Pure hypercholesterolemia, unspecified, I10 - Essential (primary) hypertension, Z00.00 - Encounter for general adult medical examination without abnormal findings Complete Blood Count Auto Diff 6 Months E55.9 - Vitamin D deficiency, unspecified, E78.00 - Pure hypercholesterolemia, unspecified, I10 - Essential (primary) hypertension, Z00.00 - Encounter for general adult medical examination without abnormal findings Lipid Panel 6 Months E55.9 - Vitamin D deficiency, unspecified, E78.00 - Pure hypercholesterolemia, unspecified, I10 - Essential (primary) hypertension, Z00.00 - Encounter for general adult medical examination without abnormal findings TSH reflex Free T4 6 Months E55.9 - Vitamin D deficiency, unspecified, E78.00 - Pure hypercholesterolemia, unspecified, I10 - Essential (primary) hypertension, Z00.00 - Encounter for general adult medical examination without abnormal findings Glucose Fasting 6 Months E55.9 - Vitamin D deficiency, unspecified, E78.00 - Pure hypercholesterolemia, unspecified, I10 - Essential (primary) hypertension, Z00.00 - Encounter for general adult medical examination without abnormal findings Medications: New loratadine (Claritin) 10 mg PO DAILY PRN 30 tabs 3RF allergy symptoms diclofenac sodium 3% 1 appl topical BID PRN 100 grams 0RF right knee pain Refilled cholecalciferol (vitamin D3) 25 mcg PO DAILY 60 caps 3RF
[2024-04-02 09:48] VITALS: BP 130/64; PULSE 71; O2SAT 97; BMI 31.9
== END 2024-04-02 10:40 | disposition home or self-care (01) ==
PROVIDERS: PCP Internal Medicine
DX: R73.01 Impaired fasting glucose (principal); E66.9 Obesity, unspecified; Z68.31 Body mass index [BMI] 31.0-31.9, adult; R09.81 Nasal congestion; M17.11 Unilateral primary osteoarthritis, right knee; E55.9 Vitamin D deficiency, unspecified; E78.00 Pure hypercholesterolemia, unspecified; I10 Essential (primary) hypertension

== ENCOUNTER → 2024-04-02 09:42 | Outpatient (BNVA) | payer BC, OTHER, SELFPAY | PROVIDERS: PCP Internal Medicine | DX: R73.01 Impaired fasting glucose (principal); M17.11 Unilateral primary osteoarthritis, right knee; E55.9 Vitamin D deficiency, unspecified; E78.00 Pure hypercholesterolemia, unspecified; I10 Essential (primary) hypertension; R09.81 Nasal congestion; E66.9 Obesity, unspecified; Z68.31 Body mass index [BMI] 31.0-31.9, adult; Z79.899 Other long term (current) drug therapy | CPT/HCPCS: 96127 ==

== ENCOUNTER 2024-05-28 08:50 | Outpatient (RCR) | payer BC, MEDICAID, SELFPAY ==
--- NOTE | 2024-04-07 15:15 | MHC.PT.EP ---
[facility] [place] Office [place] Office [place] Office [address] Luis Hogue [address] [phone] F: [phone] F: [phone] F: [phone] F: [phone] Physical Therapy Plan of Care Date of Evaluation: 04/07/24 Date of Surgery: Diagnosis: RIGHT knee osteoarthritis, OA of patellofemoral joint (RS) Assessment: Sherri is a pleasant, motivated 63 y.o. female who is referred to PT by Dr. Yehuda Cramer of [facility] [place] [facility] with Dx of RIGHT knee osteoarthritis, OA of patellofemoral joint. X-ray report of her RIGHT knee indicates Patellofemoral compartment: There is severe joint space narrowing of the lateral portion of the compartment with subchondral cystic change and marginal osteophytes. Additional arthrosis of the medial compartment with marginal osteophytes. Overall severe patellofemoral osteoarthritis. Patient impairments include pain, localized swelling to R knee, weakness in R quad and glutes, limited ROM in R knee, antalgic gait. Patient current functional limitations are walking long distances, walking out doors, bend/squat, ascending and descending stairs. Patient will benefit from skilled PT to address aforementioned impairments and functional limitations to meet established goals. Frequency and Duration: The patient will be seen 2x/week for 4 weeks Short Term Goals: 2 weeks Patient demonstrates consistency and independence with HEP to self manage symptoms. Patient is able to wean off knee brace for ambulation on level surfaces at home without c/o sxs. Assembler Insulator Goals: 4 weeks Patient presents with increased R knee flexion 115 degrees to improve bend/squat for ADLs such as laundry. Patient presents with increased R knee quad strength 4/5 to be able to ascend/descend step at home. Treatment Plan: Modalities to reduce pain, spasms and effusion. Manual therapy to restore motion and function. Therapeutic exercise to improve strength and flexibility. Neuromuscular re-education for posture and balance. Therapeutic activities to return to functional activities of daily living. Electronically signed by: Rodriguez Pope, PT, DPT Please sign and return to therapist. Thank you for your referral.
--- NOTE | 2024-05-28 11:31 | MHC.PT.DC ---
[facility] [place] Office [place] [facility] [place] Office [address] Luis Hogue [address] [facility] [phone] F: [phone] F: [phone] F: [phone] F: [phone] Physical Therapy Discharge Report Diagnosis: RIGHT knee osteoarthritis, OA of patellofemoral joint (RS) Date of Surgery: Date of Evaluation: 04/07/24 Date of Discharge: 05/28/24 Treatments to Date: 11 Cancellations to Date: No Shows to Date: Discharge Status: Achieved Goals Improved Function Independent with HEP Discharge Summary: Sherri presents with improved and near full AROM in R knee, improved strength and overall improvement in functional mobility. She has acute pain today from chopping up ice outside, but reports she feels comfortable knowing how to manage her knee symptoms and feels ready for discharge today. Electronically signed by: Rodriguez Pope, PT, DPT Please sign and return to therapist. Thank you for your referral.
== END 2024-05-28 11:32 | disposition home or self-care (01) ==
LOC: HO.PT 08:50
PROVIDERS: PCP Internal Medicine; Visit Provider Orthopaedic Surgery
DX: M17.11 Unilateral primary osteoarthritis, right knee (principal)
CPT/HCPCS: 97110; 97112; 97161; 97530; 97535

== ENCOUNTER 2024-05-28 10:38 | Outpatient (REF) | payer BC, MEDICAID, SELFPAY ==
--- NOTE | ~2024-05-28 | MM_ITS ---
EXAMINATION: MM DIAGNOSTIC DIGITAL BREAST TOMOSYNTHESIS, BILATERAL CLINICAL INFORMATION: History of right breast cancer and 2021 status post lumpectomy and conservation therapy. COMPARISON: Mammography: Comparison is made with relevant prior exams. TECHNIQUE: Digital breast mammography with tomosynthesis is performed in both the craniocaudal and mediolateral oblique views along with computer-aided detection (CAD). FINDINGS: There are scattered areas of fibroglandular density (ACR BI-RADS breast composition Category b). Post lumpectomy changes to the right breast are stable. There are no significant masses, abnormal calcifications, or other abnormalities. Results are provided to the patient at time of visit by the technologist. MM/MM tomosynthesis diagnostic BI IMPRESSION: There are no significant changes from prior study. ASSESSMENT: BI-RADS BI-RADS 2 - Benign Findings RECOMMENDATION: 1 year F/U This patient's information was entered into a reminder system with a target due date for their next mammogram. Electronically signed by: Ama Vences DO 05/28/2024 12:08 PM PALLAVI SHOOK
--- OUTSIDE RECORDS SUMMARY | 2024-05-28 12:39 | XMS_ITS | Clinical Summary ---
Author Organization [employer] Address [address] [facility] [address] [place] [address] Care Team Providers Care Steel Fitter Name Role Phone Unavailable Primary Care Provider Unavailabl e Social History Tobacco Use Types Packs/Day Years Used Date Smoking Tobacco: Never Assessed Comments Unknown Sex and Gender Information Value Date Recorded Sex Assigned at Female 01/29/2022 10:35 AM EDT Legal Sex Female 10:35 AM EDT Gender Identity Female 01/29/2022 10:35 AM EDT Sexual Orientation Straight 01/29/2022 10 :35 AM EDT Plan of Treatment Health Maintenance Due Date Last Done Comments CT Colonography 1961 Colonoscopy 1961 Colorectal Cancer Screening 1961 Depression Screening 1961 FIT DNA/Cologuard 1961 FIT 1961 FOBT 1961 Sigmoidoscopy 1961 Alcohol/Substance Use Screening 1973 Tobacco Screening 1973 DTaP/Tdap/Td Vaccines (1 - Tdap) 1980 Pap Smear 1982 Cervical Cancer Screening 1991 HPV/Cotest 1991 Mammogram 2001 Pneumococcal Vaccine: 50+ Ye ars (1 of 1 - PCV) 2011 Zoster Vaccines (1 of 2) 2011 COVID-19 Vaccine ( - 2023-2 5 season) 2023 Influenza Vaccine (#1) 2023 RSV Patients and Pa tients Aged 60 years or older (1 - 1-dose 75+ series) 2036 HIB Vaccines Aged Out No longer eligi ble based on patient's age to complete this topic HPV Vaccines Aged Out No longer eligi ble based on patient's age to complete this topic Hepatitis A Vaccines Aged Out No long er eligible based on patient's age to complete this topic Hepatitis B Vaccines Aged Out No long er eligible based on patient's age to complete this topic IPV Vaccines Aged Out No longer eligi ble based on patient's age to complete this topic Meningococcal Vaccine Aged Out No evens jenn eligible based on patient's age to complete this topic Pneumococcal Vaccine: Pediat rics (0 to 5 Years) and At-Risk Patients (6 to 49) Years) Aged Out No longer eligible b ased on patient's age to complete this topic RSV under 20 months Aged Out No longe r eligible based on patient's age to complete this topic Rotavirus Vaccines Aged Out No longer eligible based on patient's age to complete this topic
--- OUTSIDE RECORDS SUMMARY | 2024-05-28 12:39 | XMS_ITS | Encounter Summary ---
Author Organization [email or web address] [facility] Address [address] [place] [address] Care Team Providers Care Orthophotography Technician Name Role Phone Unavailable Primary Care Provider Unavailabl e Encounter Details Date Type Department Care Team (Latest Contact Info) Description 08/27/2018 Abstract C CONVERSIONS Dental, Provider, DDS Social History Tobacco Use Types Packs/Day Years Used Date Smoking Tobacco: Never Assessed Comments Unknown Sex and Gender Information Value Date Recorded Sex Assigned at Female 01/29/2022 10:35 AM EDT Legal Sex Female 10:35 AM EDT Gender Identity Female 01/29/2022 10:35 AM EDT Sexual Orientation Straight 01/29/2022 10 :35 AM EDT documented as of this encounter Plan of Treatment Not on file documented as of this encounter Visit Diagnoses Not on filedocumented in this encounter
== END 2024-05-28 10:39 | disposition home or self-care (01) ==
LOC: HO.MAMMO 10:38
PROVIDERS: PCP Internal Medicine; Visit Provider Internal Medicine
DX: Z08 Encounter for follow-up examination after completed treatment for malignant neoplasm (principal); C50.911 Malignant neoplasm of unspecified site of right female breast; Z79.899 Other long term (current) drug therapy
CPT/HCPCS: 77062; 77066

== ENCOUNTER → 2024-05-28 11:30 | Outpatient (BNV) | payer BC, MEDICAID, SELFPAY | PROVIDERS: PCP Internal Medicine; Visit Provider Internal Medicine | DX: Z85.3 Personal history of malignant neoplasm of breast (principal); Z90.13 Acquired absence of bilateral breasts and nipples | CPT/HCPCS: 77062; 77066 ==

== ENCOUNTER 2024-09-24 08:14 | Outpatient (AMB) | payer BC, MEDICAID, SELFPAY ==
--- NOTE | 2024-09-24 08:18 | A.OFFVIS_ITS ---
Vital Signs 09/24/24 08:19 Height 5 ft 3 in Weight 184 lb BMI 32.6 BP 154/74 H Blood Pressure Location Rt brachial Position Sitting Pulse 69 Intake Visit Reasons: 6 month follow up breast exam Intake Note: Patient is seen in office for 6 month follow up visit, breast exam. Patient c/o: gets a little breast discomfort when wearing bras for a long period of time. Sports bras help. Reports no changes in medical hx since last office visit. Denies nipple discharge, lumps, rash. MM: 05-28-2024 Training Generalist Required: No Accompanied by: Self / Same As Patient Allergies aspirin (ASPIRIN) Allergy (Mild, Verified 09/24/24 08:27) GI UPSET, Stomach upset morphine (Morphine) Allergy (Mild, Verified 09/24/24 08:27) VOMITING Medication List - Last Reconciled 09/24/24 by Simón Mccarty MD albuterol sulfate 90 mcg/actuation 1 inh inhalation QID PRN cholecalciferol (vitamin D3) 25 mcg PO DAILY diclofenac sodium 3% 1 appl topical BID PRN ibuprofen 600 mg PO Q8H PRN letrozole 2.5 mg PO DAILY lisinopril 5 mg PO DAILY 90 days loratadine (Claritin) 10 mg PO DAILY PRN multivitamin 1 tab PO DAILY HPI Comments Details: 64-year-old female patient returning for follow-up breast examination following right breast lumpectomy with needle localization and sentinel node biopsy right axilla on 06/05/2021. She was found to have an ill-defined density by ultrasound and underwent ultrasound-guided core biopsy which revealed a grade 1 invasive ductal carcinoma, ER/MD positive, HER2 Fanny negative, Ki-67 5-10%. She has no previous history of breast surgery and her family history is significant for distant aunt with breast cancer. She is breastfed her children. 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 Oncotype testing was 4. (pT1c N0). She completed radiation therapy on 09/12/2021 and was evaluated by Dr. Johnson who started letrozole. She is tolerating this well and the plan is to continue for 5 years. Her last mammogram dated 05/28/2024 revealed no significant changes and no mammographic evidence of malignancy (BI-RADS 2). She feels well and denies any new breast symptoms. [facility] Medical History Breast cancer Obesity (BMI 30-39.9) Vitamin D deficiency Pure hypercholesterolemia Benign essential hypertension Surgical History History of lumpectomy of right breast (06/05/21) Status post colonoscopy (~10/22/11) History of carpal tunnel release History of cholecystectomy Family History Father Medical history unknown Mother Diabetes Hypertension Maternal Aunt Breast cancer Social History Household Members: Family and Other Household Members Other:: Grandchildren 3 Housing: House Are you a primary residential caregiver to a significant other at home: No Do you presently have visiting nurse or other home services: No Alcohol intake: current Alcohol intake frequency: holidays/special occasions only Alcohol type: wine Patient Tobacco Use Status: Never used Tobacco e-Cigarette/Vaping Use: Never Used Second Hand Smoke Exposure: No service: No Current occupational status: employed 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 Current occupational exposures/hazards: No Gender identity: Female Cognitive needs: No Hearing needs: No Vision needs: No Female Reproductive History Menstrual Age of Menarche: 12 Review of Systems Const All systems reviewed & are unremarkable except as noted in HPI and below Physical Exam Const General: cooperative and no acute distress Nutritional Appearance: well nourished Orientation/consciousness: patient oriented x3 Limitations: no limitations Neck Neck: Yes normal visual inspection and Yes no lymphadenopathy Chest Other: Right breast incisions are clean, dry, and intact without redness or discharge. Mild residual radiation change noted. No palpable mass, new skin change, nipple discharge or enlarged lymph nodes. Left breast reveals no skin change, nipple discharge, nipple retraction, palpable mass or enlarged lymph nodes. Resp Effort & Inspection: normal respiratory effort, no audible wheezes, no cough and no respiratory distress Skin Other: warm, dry, no rash Neuro Other: Mobility Assessment: 6 1. 3 meter assessment time (seconds) 2. Gait observations: Normal balance and gait General: patient oriented x3 Extrem Other: no peripheral edema Assessment & Plan Assessment & Plan (1) Invasive ductal carcinoma of right breast: Code(s): C50.911 - Malignant neoplasm of unspecified site of right female breast Category: Medical Plan 64-year-old female patient returning for follow-up breast examination. She has a prior history of infiltrating ductal carcinoma of the right breast, s/p right breast lumpectomy with sentinel node biopsy on 06/05/2021. Pathology revealed a 1.4 cm invasive ductal carcinoma, ER/MD positive, HER2 Fanny negative with negative margins, 0 of 8 sentinel lymph nodes with metastatic disease (pT1cNo). She completed radiation therapy on 09/02/2021 and is now on letrozole (Alex). Today's examination revealed a well-healed incision in the right breast with no evidence of recurrent disease in either breast. Her most recent mammogram dated 05/28/2024 revealed no mammographic evidence of malignancy (BI-RADS 2). A 1 year follow-up diagnostic mammogram is scheduled for 06/03/2025. I recommended she return approximately 6 months for follow-up examination, sooner p.r.n.. Coding Level of Care Code Est Pt Level 3 (85232) Complex EM visit Add On G2211 Diagnoses Invasive ductal carcinoma of right breast C50.911
[2024-09-24 08:19] VITALS: BP 154/74; PULSE 69; BMI 32.6
--- OUTSIDE RECORDS SUMMARY | 2024-09-24 08:27 | XMS_ITS | Encounter Summary ---
Author Organization [employer] [facility] Address [address] [place] [address] Care Team Providers Care Radio News Writer Name Role Phone Unavailable Primary Care Provider Unavailabl e Encounter Details Date Type Department Care Team (Latest Contact Info) Description 08/27/2018 Abstract [facility] CONVERSIONS Dental, Provider, DDS Social History Tobacco [...]
== END 2024-09-24 08:36 | disposition home or self-care (01) ==
LOC: HO.HGS 08:15
PROVIDERS: PCP Internal Medicine; Visit Provider Surgery
DX: C50.911 Malignant neoplasm of unspecified site of right female breast (principal)
CPT/HCPCS: 99213

== ENCOUNTER → 2024-09-24 08:14 | Outpatient (BNVA) | payer BC, MEDICAID, SELFPAY | PROVIDERS: PCP Internal Medicine; Visit Provider Surgery | DX: Z13.89 Encounter for screening for other disorder (principal) ==

== ENCOUNTER 2024-09-30 06:46 | Outpatient (REF) | payer BC, MEDICAID, SELFPAY ==
[2024-09-30 07:16] LABS: MANUAL DIFF FLAG NO
[2024-09-30 07:56] LABS: Hematocrit 40.4 % (37.0-47.0); Hemoglobin 13.1 g/dl (12.0-16.0); Imm Gran Abs Auto 0.02 X10*3/uL (0.00-0.03); Imm Gran Pct Auto 0.4 % (0.0-0.4); Lymphocytes Absolute Auto 1.7 X10*3/uL (1.2-4.9); Mean Corpuscular HGB Conc 32.4 g/dl (31.0-35.0); Mean Corpuscular Hemoglobin 29.0 pg (27.0-33.0); Mean Corpuscular Volume 89.6 fL (80.0-98.0); NRBC Abs Auto 0.000 X10*3/uL (0.0-0.012); NRBC Pct Auto 0.0 /100WBC (0.0-0.2); Platelet Count 312 X10*3/uL (160-400); Red Blood Count 4.51 X10*6/uL (4.20-5.50); White Blood Count 5.7 X10*3/uL (4.8-10.8)
[2024-09-30 08:01] LABS: Appearance Urine Clear; Glucose Urine UA Negative (Negative); PH 6.0 (5.0-9.0); Specific Gravity - Urine 1.015 (1.005-1.025); UMIC TRIGGER UACC YES
[2024-09-30 08:14] LABS: Hemoglobin A1C 139.2240 umol/L; Total Hemoglobin (HGBA1C) 3470.0170 umol/L
[2024-09-30 08:32] LABS: Alanine Aminotransferase 21 U/L (0-31); Albumin Level 4.0 g/dL (3.5-5.0); Alkaline Phosphatase 89 U/L (39-117); Anion Gap 11 (12-20); Aspartate Amino Transferase 20 U/L (5-31); Blood Urea Nitrogen 12 mg/dL (9-16); Calcium 8.8 mg/dL (8.4-10.2); Carbon Dioxide 27 mmol/L (22-29); Chloride 106 mmol/L (96-108); Cholesterol 196 mg/dL (<200); Estimated Glomerular Filt Rate > 60; HDL Cholesterol 57 mg/dL (>40); Potassium 4.2 mmol/L (3.3-5.1); Sodium 140 mmol/L (135-145); Total Protein 6.8 g/dL (6.5-8.0); Triglycerides 68 mg/dL (<150)
[2024-09-30 08:58] LABS: Microalbum/Creatinine Ratio Ur 9.2 ug/mg cr (<30)
== END 2024-09-30 06:47 | disposition home or self-care (01) ==
LOC: HO.LAB 06:46
PROVIDERS: PCP Internal Medicine
DX: Z00.00 Encounter for general adult medical examination without abnormal findings (principal); E78.00 Pure hypercholesterolemia, unspecified; E55.9 Vitamin D deficiency, unspecified; I10 Essential (primary) hypertension; Z13.1 Encounter for screening for diabetes mellitus
CPT/HCPCS: 36415; 80053; 80061; 81001; 81003; 82043; 82306; 82570; 83036; 84443; 85025

== ENCOUNTER 2024-10-06 08:44 | Outpatient (AMB) | payer BC, MEDICAID, SELFPAY ==
[2024-10-06 08:45] VITALS: BP 120/82; PULSE 70; O2SAT 97; BMI 32.4
--- NOTE | 2024-10-06 08:45 | A.OFFPC_ITS ---
Vital Signs 10/06/24 08:45 Height 5 ft 3 in Weight 183 lb BMI 32.4 BP 120/82 Blood Pressure Location Lt brachial Position Sitting Pulse 70 Pulse Source Pulse Oximeter Pulse Oximetry (%) 97 Oxygen Delivery Method Room Air Intake Visit Reasons: Annual Exam Slackline Operator Required: No Accompanied by: Self / Same As Patient Allergies aspirin (ASPIRIN) Allergy (Mild, Verified 10/06/24 08:46) GI UPSET, Stomach upset morphine (Morphine) Allergy (Mild, Verified 10/06/24 08:46) VOMITING Tobacco use date assessed: 10/06/24 Dental Screening Dental Screen Date: 10/06/24 Did you have a dental visit in the last 12 months?: Yes Did you have a dental problem in the last 6 months where you did not have access to dental care?: No Was dental information given to patient?: Patient has dentist HPI Annual Exam HPI Details Patient comes in today for her annual physical examination States that she feels okay She denies any headaches or dizziness Denies any chest pains, no SOB No nausea/vomiting, no abdominal pain No change in bowel habits noted Denies any acute urinary symptoms She had her follow up labs done last week - to discuss her results She is up-to-date with all of her cancer screenings - had her annual mammogram last done in May 2024 and her yearly gynecology exam and pap smear done back in March 2024 She had her screening colonoscopy done back in 2021 and her next colonoscopy will be in 10 years (2031) BMD done back in July 2023 revealed (+) osteopenia [facility] Medical History (Updated 10/06/24 @ 12:16 by Zelalem Jones MD) Osteopenia Breast cancer Obesity (BMI 30-39.9) Vitamin D deficiency Pure hypercholesterolemia Benign essential hypertension Surgical History History of lumpectomy of right breast (06/05/21) Status post colonoscopy (~10/22/11) History of carpal tunnel release History of cholecystectomy Family History Father Medical history unknown Mother Diabetes Hypertension Maternal Aunt Breast cancer Social History Household Members: Family and Other Household Members Other:: Grandchildren 3 Housing: House Are you a primary daycare teacher to a significant other at home: No Do you presently have visiting nurse or other home services: No Alcohol intake: current Alcohol intake frequency: holidays/special occasions only Alcohol type: wine Patient Tobacco Use Status: Never used Tobacco e-Cigarette/Vaping Use: Never Used Second Hand Smoke Exposure: No service: No Current occupational status: employed 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 Current occupational exposures/hazards: No Gender identity: Female Cognitive needs: No Hearing needs: No Vision needs: No Female Reproductive History Menstrual Age of Menarche: 12 Questionnaire PHQ-9 Over the last 2 weeks, how often have you been bothered by any of the following problems? 1. Little interest or pleasure in doing things: not at all 2. Feeling down, depressed, or hopeless: not at all 3. Trouble falling or staying asleep, or sleeping too much: not at all 4. Feeling tired or having little energy: not at all 5. Poor appetite or overeating: not at all 6. Feeling bad about yourself - or that you are a failure or have let yourself or your family down: not at all 7. Trouble concentrating on things, such as reading the newspaper or watching television: not at all 8. Moving or speaking so slowly that other people could have noticed. Or the opposite - being so fidgety or restless that you have been moving around a lot more than usual: not at all 9. Thoughts that you would be better off or of hurting yourself in some way: not at all Total score: 0 Depression Screening Interpretation: Negative Depression Screening Done: Yes 16539 - PHQ-9 Billing: Yes Source: Developed by Drs. Ag Roe, Barbara Huizar, Cam Bullock and colleagues, with an educational dickson from [employer]. Thrive Questionnaire Date Thrive assessed: 10/06/24 I am a: Patient What is your living situation today?: I have a steady place to live Within the past 12 months, did the food you bought not last and you didn't have the money to get more?: Never true Within the past 12 months, did you worry whether your food would run out before you got money to buy more?: Never true Do you have trouble paying for medicines?: No Do you have trouble getting transportation to medical appointments?: No Do you have trouble paying your heating and electricity bill?: No Do you have trouble taking care of your child, family member or friend?: No Do you have trouble with day-to-day activities such as bathing, preparing meals, shopping, managing finances, etc.?: No Are you currently unemployed and looking for a job?: No Are you interested in more education?: No Please select the resources that you would like help with: None Currently or been in a relationship where the following occur: No concerns reported THRIVE Score: 0 AUDIT C Alcohol Use Questionnaire (AUDIT-C) 1. How often do you have a drink containing alcohol?: Never 3. How often do you have six or more drinks on one occasion?: Never Total Score: 0 Score Reviewed/Action Taken: Yes GABRIELLA-7 AMB Questionnaire GABRIELLA-7 Date GABRIELLA - 7 assessed: 10/06/24 Feeling nervous, anxious, or on edge: 0 = Not at all Not being able to stop or control worryin = Not at all Worrying too much about different things: 0 = Not at all Trouble relaxin = Not at all Being so restless that it is hard to sit still: 0 = Not at all Becoming easily annoyed or irritable: 0 = Not at all Feeling afraid as if something awful might happen: 0 = Not at all Total GABRIELLA-7 score (0-4 normal; 5-9 mild; 10-14 moderate; 15-21 severe): 0 Source: Developed by Drs. Ag Roe, Barbara Huizar, Cam Bullock and colleagues, with an educational dickson from [employer]. GABRIELLA-7 Assessment Billing GABRIELLA-7 Assessment Tool: GABRIELLA-7 Assessment 19995 Review of Systems Const Denies chills, Denies fatigue, Denies fever(s), Denies headache(s) and Denies malaise Eyes Denies blurry vision, Denies change in vision, Denies irritation and Denies itchy eyes ENT Denies dysphagia, Denies dizziness, Denies otalgia, Denies headache(s), Denies nasal congestion, Denies neck pain, Denies odynophagia, Denies sinus pain and Denies sore throat Card Denies chest pain, Denies rapid heart rate, Denies irregular heart rhythm, Denies palpitations and Denies dyspnea Resp Denies chest congestion, Denies cough, Denies dyspnea and Denies wheezing GI Denies abdominal pain, Denies bloating, Denies constipation, Denies dysphagia, Denies heartburn, Denies diarrhea, Denies nausea, Denies odynophagia and Denies vomiting Denies hematuria, Denies urinary frequency, Denies dysuria, Denies urinary incontinence and Denies urinary urgency Musc Denies back pain, Denies arthralgias, Denies joint swelling, Denies muscle weakness and Denies neck pain Skin/Breast Denies breast pain, Denies breast mass, Denies change in pigmentation, Denies lesions, Denies rash and Denies unusual bruising Neuro Denies dizziness, Denies headache(s) and Denies paresthesias Psych Denies anxiety and Denies depression Endo Denies fatigue and Denies palpitations Enrique/Lymph Denies easy bruising Aller/Immun Denies itchy eyes and Denies wheezing Physical exam (Primary Care) Vital Signs: Last Vital Signs Pulse 70 10/06/24 08:45 BP 120/82 10/06/24 08:45 Pulse Ox 97 10/06/24 08:45 Oxygen Delivery Method Room Air 10/06/24 08:45 BMI result Body Mass Index 32.4 Tobacco/Smoking Status: Tobacco use Status Tobacco use date assessed 10/06/24 10/06/24 08:52 Patient Tobacco Use Status Never used Tobacco 10/06/24 08:52 e-Cigarette/Vaping Use Never Used 10/06/24 08:52 PHQ-9: PHQ-9 Score PHQ-9: Total score 0 10/06/24 09:31 Depression Screening Interpretation: Negative Thrive Assessment: Date of Thrive Assessment Date Thrive assessed 10/06/24 10/06/24 08:52 Currently or been in a relationship where the following occur: No concerns reported Const General: no acute distress, alert and awake Orientation/consciousness: patient oriented x3 HENMT Head: Yes normocephalic and Yes atraumatic Ears: external ears normal, TM's normal bilaterally and EAC's normal General nose exam: No nasal discharge present Face and sinus: Yes normal facial exam and Yes sinuses nontender Teeth and gingiva: dentition normal Throat: Yes posterior oropharynx normal and Yes tonsils normal (no TP congestion) Eyes Eyelids: Yes eyelids normal Conjunctivae: conjunctivae normal Pupils: Equal, round and reactive pupils present EOM: EOMs intact bilaterally Neck Neck: Yes no lymphadenopathy and Yes supple Thyroid: Thyroid normal Resp Auscultation: clear to auscultation bilaterally, no rales and no wheezes Cardio Rate: regular rate Rhythm: regular rhythm Heart sounds: no murmurs GI Palpation (GI): Soft to palpation, nontender and No hepatosplenomegaly present Auscultation: normal bowel sounds General: Yes no CVA tenderness Back/Spine/Pelvis Back: no CVA tenderness Thoracic/Lumbar Spine: thoracic and lumbar spine normal to inspection Skin Lesions: no lesions Rashes: no rashes Neuro General: patient oriented x3, moves all extremities, no focal motor deficits and CN's II-XI intact bilaterally Cranial nerves: Yes Equal, round and reactive pupils present Cognition (Neuro): normal cognition Gait exam (Neuro): Normal gait present Extrem General: Yes no clubbing, cyanosis or edema Results Reviewed Results Reviewed: Laboratory Tests 09/30/24 09/30/24 07:04 07:14 WBC 5.7 Hgb 13.1 Hct 40.4 Plt Count 312 Sodium 140 Potassium 4.2 Creatinine 0.65 Estimated GFR > 60 Fasting Glucose 98 Hemoglobin A1c % 5.8 Calcium 8.8 AST 20 ALT 21 Triglycerides 68 Cholesterol 196 LDL Cholesterol, Calc 126 H HDL Cholesterol 57 25-OH Vitamin D Total 41.5 TSH 1.72 Ur Specific [place] 1.015 Urine Protein Negative Urine Glucose (UA) Negative Urine Blood Small (1+) H Urine Nitrite Negative Ur Leukocyte Esterase Negative Microalb/Creat Ratio 9.2 Coding Level of Care Code Est Pt Prev Care 40-64y(20102) Diagnoses Annual physical exam Z00.00 Benign essential hypertension I10 Pure hypercholesterolemia E78.00 IFG (impaired fasting glucose) R73.01 Vitamin D deficiency E55.9 Osteopenia, unspecified location M85.80 Osteopenia location: unspecified Invasive ductal carcinoma of right breast C50.911 Obesity (BMI 30-39.9) E66.9 Additional Codes GABRIELLA-7 Assessment Billing - GABRIELLA-7 Assessment Tool: GABRIELLA-7 Assessment 35261 ([id number]) PHQ-9 - 28953 - PHQ-9 Billing: Yes ([id number]) Assessment & Plan Assessment & Plan (1) Annual physical exam: Code(s): Z00.00 - Encounter for general adult medical examination without abnormal findings Category: Medical Plan: Results of her labs done last week reviewed and discussed with patient She is up-to-date with all of her cancer screenings - had her annual mammogram last done in May 2024 and her yearly gynecology exam and pap smear done back in March 2024 She had her screening colonoscopy done back in 2021 and her next colonoscopy will be in 10 years (2031) BMD done back in July 2023 revealed (+) osteopenia (2) Benign essential hypertension: Code(s): I10 - Essential (primary) hypertension Category: Medical Plan: Reinforced low sodium diet - goal is systolic BP of 120 mm or less Continue Lisinopril 5 mg QD (3) Pure hypercholesterolemia: Code(s): E78.00 - Pure hypercholesterolemia, unspecified Category: Medical Plan: Patient is advised that her fasting lipids are within normal range on her recent labs - her LDL cholesterol has improved slightly from previous and is now at the high normal range at 126 mg/dl Discussed that she should ideally try to get this down further and closer to or under 100 mg/dl Reinforced low cholesterol diet Will recheck her labs and fasting lipids in 6 months for follow up (4) IFG (impaired fasting glucose): Code(s): R73.01 - Impaired fasting glucose Category: Medical Plan: Her HgbA1c is normal at 5.8% on her recent labs (HgbA1c was at 5.9% last year); FBS was also normal at 98 mg/dl recently Reinforced low calorie/low carb diet; exercise as tolerated (5) Vitamin D deficiency: Code(s): E55.9 - Vitamin D deficiency, unspecified Category: Medical Plan: Continue Vitamin D3 1000 units QD (6) Osteopenia: Code(s): M85.80 - Other specified disorders of bone density and structure, unspecified site Category: Medical Qualifiers: Osteopenia location: unspecified Qualified Code(s): M85.80 - Other specified disorders of bone density and structure, unspecified site Plan: Her most recent BMD done in July 2023 revealed (+) osteopenia based on the lowest T-score value of -1.3 in the femoral neck Patient is encouraged to continue taking her oral Calcium and Vitamin D supplements daily and to exercise regularly Will continue to monitor her BMD regularly every 2 to 3 years (7) Invasive ductal carcinoma of right breast: Code(s): C50.911 - Malignant neoplasm of unspecified site of right female breast Category: Medical Plan: Lumpectomy and sentinel node Bx done on 06/05/21 revealed invasive ductal carcinoma, grade 2, 1.4 cm, margins negative ER positive, WI positive, HER2/nabeel negative Her sentinel lymph node biopsy came back negative; Oncotype diagnostic testing also came back negative Patient completed postlumpectomy radiation on 09/12/2021 She was started on Letrozole 2.5 mg QD beginning in June 2021 - plan is to continue for a total of 5 years Follow up with Oncology regularly as scheduled for continuing surveillance (8) Obesity (BMI 30-39.9): Code(s): E66.9 - Obesity, unspecified Category: Medical Plan: Reinforced diet/exercise as tolerated/lose weight Plan Follow up in 6 months Orders: Orders Hemoglobin A1c 6 Months R73.01 - Impaired fasting glucose Lipid Panel 6 Months E78.00 - Pure hypercholesterolemia, unspecified Comprehensive [place]. Panel Fast 6 Months E78.00 - Pure hypercholesterolemia, unspecified
== END 2024-10-06 09:40 | disposition home or self-care (01) ==
LOC: HO.HMCH 08:44
PROVIDERS: PCP Internal Medicine; Visit Provider Internal Medicine
DX: Z00.00 Encounter for general adult medical examination without abnormal findings (principal); E66.9 Obesity, unspecified; C50.911 Malignant neoplasm of unspecified site of right female breast; Z68.32 Body mass index [BMI] 32.0-32.9, adult; I10 Essential (primary) hypertension; E78.00 Pure hypercholesterolemia, unspecified; R73.01 Impaired fasting glucose; E55.9 Vitamin D deficiency, unspecified; M85.80 Other specified disorders of bone density and structure, unspecified site

== ENCOUNTER → 2024-10-06 08:44 | Outpatient (BNVA) | payer BC, MEDICAID, SELFPAY | PROVIDERS: PCP Internal Medicine; Visit Provider Internal Medicine | DX: Z00.00 Encounter for general adult medical examination without abnormal findings (principal); I10 Essential (primary) hypertension; E78.00 Pure hypercholesterolemia, unspecified; R73.01 Impaired fasting glucose; E55.9 Vitamin D deficiency, unspecified; M85.80 Other specified disorders of bone density and structure, unspecified site; C50.911 Malignant neoplasm of unspecified site of right female breast; E66.9 Obesity, unspecified; Z68.32 Body mass index [BMI] 32.0-32.9, adult; Z71.3 Dietary counseling and surveillance | CPT/HCPCS: 96127 ==

== ENCOUNTER 2025-03-04 09:37 | Outpatient (AMB) | payer MEDICAID, SELFPAY ==
--- NOTE | 2025-03-04 09:38 | A.OFFVIS_ITS ---
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 Rn Examiner: Rn Examiner Present (Kimberly) Accompanied by: Self / Same As Patient Allergies aspirin (ASPIRIN) Allergy (Mild, Verified 03/04/25 09:49) GI UPSET, Stomach upset morphine (Morphine) Allergy (Mild, Verified 03/04/25 09:49) VOMITING Medication List - Last Reconciled 03/04/25 by Natalia Quinonez CNM cholecalciferol (vitamin D3) (Vitamin D3) 25 mcg PO DAILY diclofenac sodium 3% 1 appl topical BID PRN ibuprofen 600 mg PO Q8H PRN letrozole 2.5 mg PO DAILY lisinopril 5 mg PO DAILY 90 days loratadine (Claritin) 10 mg PO DAILY PRN multivitamin 1 tab PO DAILY Is last menstrual period known: No Post menopausal: Yes Patient : No HPI HPI 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 She is not having any rn diabetes concerns she has not been sexually active in years since her . 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 She is very busy all the time. She is getting her follow-up for her breast cancer with her mammograms and follow-up with Dr. Mccarty and Dr. Johnson. She is not complaining of any vaginal or pelvic concerns whatsoever she is postmenopausal. Her blood pressure was within normal limits today. She has been taking magnesium to help with the leg cramps and they have been helping though she did get leg cramps in both of her legs so she was trying to get in the position for pelvic exam today since she has no pelvic concerns whatsoever and is not due for Pap smear her pelvic exam was deferred. [facility] Medical History Osteopenia Breast cancer Obesity (BMI 30-39.9) Vitamin D deficiency Pure hypercholesterolemia Benign essential hypertension Surgical History History of lumpectomy of right breast (06/05/21) Status post colonoscopy (~10/22/11) History of carpal tunnel release History of cholecystectomy Family History Father Medical history unknown Mother Diabetes Hypertension Maternal Aunt Breast cancer Social History Household Members: Family and Other Household Members Other:: Grandchildren 3 Housing: House Are you a primary rn long term care to a significant other at home: No Do you presently have visiting nurse or other home services: No Alcohol intake: current Alcohol intake frequency: holidays/special occasions only Alcohol type: wine Patient Tobacco Use Status: Never used Tobacco e-Cigarette/Vaping Use: Never Used Second Hand Smoke Exposure: No service: No Current occupational status: employed 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 Current occupational exposures/hazards: No Gender identity: Female Cognitive needs: No Hearing needs: No Vision needs: No Female Reproductive History Menstrual Age of Menarche: 12 Total pregnancies: 6 Full term: 6 Date of last pap smear: 02/26/24 (negative pap smear,negative hpv ) Date of Mammogram: 05/28/24 (bi rad 2) Physical Exam Vital Signs: Last Vital Signs BP 122/74 03/04/25 09:49 BMI result Body Mass Index 33.7 Const General: healthy appearing, comfortable, no acute distress, well developed and alert Nutritional Appearance: average body habitus Orientation/consciousness: patient oriented x3 Limitations: no limitations HEENT Head: Yes normocephalic Neck Neck: Yes normal visual inspection Chest Other: Patient has scar around right nipple from lumpectomy the tissue is somewhat hardened/firm. Chest palpation & inspection: normal inspection of the chest Breast/axilla inspection: normal inspection of the breasts and normal inspection of the axillae Breast/axilla palpation: normal palpation of the breasts and normal palpation of the axillae Resp Effort & Inspection: normal respiratory effort GI Inspection: Yes normal to inspection, No Abdominal wall edema and No distended Palpation (GI): Soft to palpation and nontender Neuro General: patient oriented x3 Results Reviewed Results Reviewed: Name: Sherri Massey Gladys Age/Sex: 63/F Attending: Natalia Quinonez CNM : 1960 Submitted by: Natalia Quinonez CNM Copies to: Zelalem Jones MD MR #: [id number] Status: DEP REF Collected: 02/26/24 Location: [facility] Received: 03/02/24 Interpretation Satisfactory for evaluation. Negative for intraepithelial lesion or malignancy. Atrophic. Obscuring inflammation. HPV High Risk: Negative HPV Genotyping 16: Negative HPV Genotyping 18: Negative Clinical Information LMP: Postmenopausal Previous PAP test: 2019, WNL Material Received ThinPrep-Cervical Copies To Zelalem Jones MD [facility] Primary Care,[address] [place] [address] Natalia Quinonez CNM [facility] [address] [facility], 3rd Floor [place], [place] [id number] Electronically Signed By: NATALEE Ponce (ASCP) 03/05/24 1017 As of January 22, 2024, the technical services to include automated prescreening performed by the ThinPrep Imaging System, PAP screening and HPV testing will be performed at [facility] (CLIA #[id number]), [address] [place] [address]. Testing for HPV was performed using the pinion-pins WILLIAM [id number] system. The presence of HPV in the female genital tract is associated with a number of diseases, including cervical carcinoma. The HPV DNA high risk pool tests for HPV 31, 33, 35, 39, 45, 51, 52, 56, 58, 59, 66 and 68. The testing for HPV 16 and 18 genotypes has also been performed. A positive result Patient: Sherri Massey Age/Sex: 63/F MR#: [id number] Page 1 of 2 Gynecologic Cytology [id number] indicates detection of nucleic acid sequences from one or more subtypes, whereas a negative result indicates such sequences were not detected. All professional services are performed by [facility] ([address] [place] [address]; ; CLIA #[id number]). The PAP Test is a screening procedure with the inherent possibility of both false negative and false positive results. Results should be interpreted in the context of historic and current clinical findings. Reliability of the PAP Test is enhanced by performing the test on a regular repetitive basis. Patient: Sherri Massey Age/Sex: 63/F MR#: [id number] Patient: Sherri Massey MR#: [id number] : 1960 Acct:[id number] Age/Sex: 64 / F ADM Date: 05/28/24 Loc: [facility] Attending Dr: Zelalem Jones MD Ordering Physician: Zelalem Jones MD Results: 2Benign Findings Date of Service: 05/28/24 Follow Up: 1 Year From Original Mammogram Procedure(s): MM tomosynthesis diagnostic BI Accession Number(s): [id number] cc: Zelalem Jones MD~ EXAMINATION: MM DIAGNOSTIC DIGITAL BREAST TOMOSYNTHESIS, BILATERAL CLINICAL INFORMATION: History of right breast cancer and 2021 status post lumpectomy and conservation therapy. COMPARISON: Mammography: Comparison is made with relevant prior exams. TECHNIQUE: Digital breast mammography with tomosynthesis is performed in both the craniocaudal and mediolateral oblique views along with computer-aided detection (CAD). FINDINGS: There are scattered areas of fibroglandular density (ACR BI-RADS breast composition Category b). Post lumpectomy changes to the right breast are stable. There are no significant masses, abnormal calcifications, or other abnormalities. Results are provided to the patient at time of visit by the technologist. MM/MM tomosynthesis diagnostic BI IMPRESSION: There are no significant changes from prior study. ASSESSMENT: BI-RADS BI-RADS 2 - Benign Findings RECOMMENDATION: 1 year F/U This patient's information was entered into a reminder system with a target due date for their next mammogram. Electronically signed by: Ama Vences DO 05/28/2024 12:08 PM [facility] Dictated By: Ama Vences DO Signed By: <Electronically signed by Ama Vences DO in OV> 05/28/24 1208 Assessment & Plan Assessment & Plan (1) Well woman exam with routine gynecological exam: Code(s): Z01.419 - Encounter for gynecological examination (general) (routine) without abnormal findings Category: Medical (2) Invasive ductal carcinoma of right breast: Code(s): C50.911 - Malignant neoplasm of unspecified site of right female breast Category: Medical (3) Cervical cancer screening: Comment: normal paps 1996 to 2019, next and last pap 2024...; good view of cervix today, so Pap done 02/26/2024,= neg w neg HPV. Code(s): Z12.4 - Encounter for screening for malignant neoplasm of cervix Category: Medical (4) Obesity (BMI 30-39.9): Code(s): E66.9 - Obesity, unspecified Category: Medical (5) Knee pain: Comment: We will be seeing orthopedics very soon. Discussed. Code(s): M25.569 - Pain in unspecified knee Category: Medical (6) Leg cramps: Comment: Patient has been taking magnesium with improvement, Code(s): R25.2 - Cramp and spasm Category: Medical Plan Patient is following up with Dr. Mccarty and Dr. Johnson for the breast cancer. She massages the scar tissue on her right breast sometimes but it is still there.. She is keeping very busy with her kids and grand kids She has no vaginal or rn diabetes concerns whatsoever and as she had severe bled cramps and right leg and then the left leg each time she tried to get an midposition on the table for the pelvic exam decision was made to deferred as not necessary for this year.. She is careful with her knees to avoid aggravating them and she works to keep them in the alignment. She is trying to be very careful with her diet and health. Coding Level of Care Code Est Pt Prev Care 40-64y(20254) Diagnoses Well woman exam with routine gynecological exam Z01.419 Invasive ductal carcinoma of right breast C50.911 Cervical cancer screening Z12.4 Obesity (BMI 30-39.9) E66.9 Knee pain M25.569 Leg cramps R25.2
[2025-03-04 09:49] VITALS: BP 122/74; BMI 33.7
--- OUTSIDE RECORDS SUMMARY | 2025-03-04 10:56 | XMS_ITS | Encounter Summary ---
Author Organization [facility] Address [address] [facility] [address] [place] [address] Phone Care Team Providers Care Library Media Assistant Name Role Phone Zelalem Jones MD Primary Care Provider [phone] [phone] Encounter Details Date Type Department Care Team (Late st Contact Info) Description 06/29/2021 Ancillary Orders [facility],Outside Imaging [address] [place] [address] System, Provider Not In, [facility] [address] [address] Social History Tobacco Use Types Packs/Day Years Used Date Smoking Tobacco: Never Assessed Comments Unknown Sex and Gender Information Value Date Recorded Sex Assigned at Not on file Legal Sex Female 11:13 AM EDT Gender Identity Not on file Sexual Orientation Not on file documented as of this encounter Plan of Treatment Not on file documented as of this encounter Results * Mammogram Outside (No Interpretation) (04/21/2020 12:00 AM EST) Narrative SYSTEMGENERATED, DOCUMENTATION - 06/29/2021 7:29 AM EDT This study is for PACS storage only and not for interpretation. us Provider Not In System PhD IMG OUTSIDE IMAGING W /OUT INTERPRETATION Final Result documented in this encounter Visit Diagnoses Not on filedocumented in this encounter Care Teams Library Media Assistant Relationship Specialty Start Date End Date Zelalem Jones MD [address] [place] [address] Dr Senior BHARAT ARANA [id number] PCP - General Internal Medicine 06/23/21 documented as of this encounter Additional Source Comments The information contained in this document represents components of the legal health record. It is not the complete legal health record.[facility]
--- OUTSIDE RECORDS SUMMARY | 2025-03-04 10:56 | XMS_ITS | Clinical Summary ---
Author Organization [employer] Address [address] [facility] 7t [place] [address] Care Team Providers Care District Engineer Name Role Phone Unavailable Primary Care Provider [...] 1960 FIT 1961 FOBT 1960 Sigmoidoscopy 1960 Disability Screening 1961 Alcohol/Substance Use Screening 1973 Tobacco Screening 1973 DTaP/Tdap/Td Vaccines (1 - Tdap) 1980 Pap Smear 1982 Cervical Cancer Screening 1991 HPV/Cotest 1991 Mammogram 2001 Pneumococcal Vaccine: 50+ Ye ars (1 of 1 - PCV) 2011 Zoster Vaccines (1 of 2) 2011 COVID-19 Vaccine ( - 2024-2 6 season) 2024 Influenza Vaccine (#1) 2024 RSV Patients and Pa tients Aged 60 [...] patient's age to complete this topic Meningococcal B Vaccine Aged Out No l onger eligible based on patient's age to complete [...]
--- OUTSIDE RECORDS SUMMARY | 2025-03-04 10:56 | XMS_ITS | Encounter Summary ---
Author Organization [facility] Address [address] [facility] [address] [place] [address] Phone Care Team Providers Care Corporate Sales Representative Name Role Phone Zelalem Jones MD Primary Care Provider [phone] [phone] Encounter Details Date Type Department Care Team (Late st Contact Info) Description 06/29/2021 Ancillary Orders [facility],Outside Imaging [address] [place] [address] System, Provider Not In, [facility] [address] [address] Social History Tobacco Use Types Packs/Day Years Used Date Smoking Tobacco: Never Assessed Comments Unknown Sex and Gender Information Value Date Recorded Sex Assigned at Not on file Legal Sex Female 11:13 AM EDT Gender Identity Not on file Sexual Orientation Not on file documented as of this encounter Plan of Treatment Not on file documented as of this encounter Results * US Breast Outside (No Interpretation) (04/21/2020 12:05 AM EST) Narrative SYSTEMGENERATED, DOCUMENTATION - 06/29/2021 7:29 AM EDT This study is for PACS storage only and not for interpretation. us Provider Not In System PhD IMG OUTSIDE IMAGING W /OUT INTERPRETATION Final Result documented in this encounter Visit Diagnoses Not on filedocumented in this encounter Care Teams Corporate Sales Representative Relationship Specialty Start Date End Date Zelalem Jones MD [address] [place] [address] Dr Senior BHARAT ARANA [id number] PCP - General Internal Medicine 06/23/21 documented as of this encounter Additional Source Comments The information contained in this document represents components of the legal health record. It is not the complete legal health record.[facility]
--- OUTSIDE RECORDS SUMMARY | 2025-03-04 10:56 | XMS_ITS | Encounter Summary ---
Author Organization [facility] Address [address] [facility] [address] [place] [address] Phone Care Team Providers Care Environmental Permitting Specialist Name Role Phone Zelalem Jones MD Primary Care Provider [phone] [phone] Encounter Details Date Type Department Care Team (Late st Contact Info) Description 06/29/2021 Ancillary Orders [facility],Outside Imaging [address] [place] [address] System, Provider Not In, [facility] [address] [address] Social History Tobacco Use Types Packs/Day Years [...] * US Breast Outside (No Interpretation) (04/21/2020 12:10 AM EST) Narrative SYSTEMGENERATED, DOCUMENTATION - 06/29/2021 7:30 AM EDT This study is for PACS storage only and not for interpretation. us Provider Not In System PhD IMG OUTSIDE IMAGING W /OUT INTERPRETATION Final Result documented in this encounter Visit Diagnoses Not on filedocumented in this encounter Care Teams Environmental Permitting Specialist Relationship Specialty Start Date End Date Zelalem Jones MD [address] [place] [address] Dr Senior BHARAT ARANA [id number] PCP - General Internal Medicine 06/23/21 documented as of this encounter Additional Source Comments The information contained in this document represents components of the legal health record. It is not the complete legal health record.[facility]
--- OUTSIDE RECORDS SUMMARY | 2025-03-04 10:56 | XMS_ITS | Encounter Summary ---
Author Organization [facility] Address [address] [facility] [address] [place] [address] Phone Care Team Providers Care Music Leader Name Role Phone Zelalem Jones MD Primary Care Provider [phone] [phone] Encounter Details Date Type Department Care Team (Late st Contact Info) Description 06/29/2021 Ancillary Orders [facility],Outside Imaging [address] [place] [address] System, Provider Not In, [facility] [address] [address] Social History Tobacco Use Types Packs/Day Years Used Date Smoking Tobacco: Never Assessed Comments Unknown Sex and Gender Information Value Date Recorded Sex Assigned at Not on file Legal Sex Female 11:13 AM EDT Gender Identity Not on file Sexual Orientation Not on file documented as of this encounter Plan of Treatment Not on file documented as of this encounter Results * NM Other Outside (No Interpretation) (06/05/2021 12:05 AM EST) Narrative SYSTEMGENERATED, DOCUMENTATION - 06/29/2021 7:23 AM EDT This study is for PACS storage only and not for interpretation. us Provider Not In System PhD IMG OUTSIDE IMAGING W /OUT INTERPRETATION Final Result documented in this encounter Visit Diagnoses Not on filedocumented in this encounter Care Teams Music Leader Relationship Specialty Start Date End Date Zelalem Jones MD [address] [place] [address] Dr Senior BHARAT ARANA [id number] PCP - General Internal Medicine 06/23/21 documented as of this encounter Additional Source Comments The information contained in this document represents components of the legal health record. It is not the complete legal health record.[facility]
--- OUTSIDE RECORDS SUMMARY | 2025-03-04 10:56 | XMS_ITS | Encounter Summary ---
Author Organization [facility] Address [address] [facility] [address] [place] [address] Phone Care Team Providers Care Inhalation Therapy Teacher Name Role Phone Zelalem Jones MD Primary Care Provider [phone] [phone] Encounter Details Date Type Department Care Team (Late st Contact Info) Description 06/29/2021 Ancillary Orders [facility],Outside Imaging [address] [place] [address] System, Provider Not In, [facility] [address] [address] Social History Tobacco Use Types Packs/Day Years [...] encounter Results * Mammogram Outside (No Interpretation) (06/05/2021 12:00 AM EST) Narrative SYSTEMGENERATED, DOCUMENTATION - 06/29/2021 7:22 AM EDT This study is for PACS storage only and not for interpretation. us Provider Not In System PhD IMG OUTSIDE IMAGING W /OUT INTERPRETATION Final Result documented in this encounter Visit Diagnoses Not on filedocumented in this encounter Care Teams Inhalation Therapy Teacher Relationship Specialty Start Date End Date Zelalem Jones MD [address] [place] [address] Dr Senior BHARAT ARANA [id number] PCP - General Internal Medicine 06/23/21 documented as of this encounter Additional Source Comments The information contained in this document represents components of the legal health record. It is not the complete legal health record.[facility]
--- OUTSIDE RECORDS SUMMARY | 2025-03-04 10:56 | XMS_ITS | Encounter Summary ---
Author Organization [employer] [facility] Address [address] [facility] [address] 7[address] [place] [address] Care Team Providers Care Microsoft Systems Engineer Name Role Phone Unavailable Primary Care Provider Unavailabl e Encounter Details Date Type Department Care Team (Latest Contact Info) Description 08/27/2018 Abstract [facility] CONVERSIONS Dental, Provider, DDS Social History Tobacco [...]
--- OUTSIDE RECORDS SUMMARY | 2025-03-04 10:56 | XMS_ITS | Encounter Summary ---
Author Organization [facility] Address [address] [facility] [address] [place] [address] Phone Care Team Providers Care Classified Ad Clerk Name Role Phone Zelalem Jones MD Primary Care Provider [phone] [phone] Encounter Details Date Type Department Care Team (Late st Contact Info) Description 06/29/2021 Ancillary Orders [facility],Outside Imaging [address] [place] [address] System, Provider Not In, [facility] [address] [address] Social History Tobacco Use Types Packs/Day Years [...] Results * US Breast Outside (No Interpretation) (05/16/2021 12:05 AM EST) Narrative SYSTEMGENERATED, DOCUMENTATION - 06/29/2021 7:27 AM EDT This study is for PACS storage only and not for interpretation. us Provider Not In System PhD IMG OUTSIDE IMAGING W /OUT INTERPRETATION Final Result documented in this encounter Visit Diagnoses Not on filedocumented in this encounter Care Teams Classified Ad Clerk Relationship Specialty Start Date End Date Zelalem Jones MD [address] [place] [address] Dr Senior BHARAT ARANA [id number] PCP - General Internal Medicine 06/23/21 documented as of this encounter Additional Source Comments The information contained in this document represents components of the legal health record. It is not the complete legal health record.[facility]
--- OUTSIDE RECORDS SUMMARY | 2025-03-04 10:56 | XMS_ITS | Encounter Summary ---
Author Organization [facility] Address [address] [place] [facility] [address] [place] [address] Phone Care Team Providers Care Supervisor Tower Name Role Phone Zelalem Jones MD Primary Care Provider [phone] [phone] Encounter Details Date Type Department Care Team (Late st Contact Info) Description 06/29/2021 Ancillary Orders [facility],Outside Imaging [address] [place] [address] System, Provider Not In, [facility] [address] [address] Social History Tobacco Use Types Packs/Day Years [...] encounter Results * Mammogram Outside (No Interpretation) (04/24/2021 12:00 AM EST) Narrative SYSTEMGENERATED, DOCUMENTATION - 06/29/2021 7:28 AM EDT This study is for PACS storage only and not for interpretation. us Provider Not In System PhD IMG OUTSIDE IMAGING W /OUT INTERPRETATION Final Result documented in this encounter Visit Diagnoses Not on filedocumented in this encounter Care Teams Supervisor Tower Relationship Specialty Start Date End Date Zelalem Jones MD [address] [place] [address] Dr Senior BHARAT ARANA [id number] PCP - General Internal Medicine 06/23/21 documented as of this encounter Additional Source Comments The information contained in this document represents components of the legal health record. It is not the complete legal health record.[facility]
--- OUTSIDE RECORDS SUMMARY | 2025-03-04 10:56 | XMS_ITS | Clinical Summary ---
Author Organization [facility] Address [address] [facility] [address] [place] [address] Phone Care Team Providers Care Bookkeeping Assistant Name Role Phone Zelalem Jones MD Primary Care Provider [phone] Allergies Active Allergy Reactions Criticality Noted Date Comments Aspirin Nausea and/or Vomiting 07/14/2021 Medications letrozole (FEMARA) 2.5 mg tablet Take 2.5 mg by mouth daily. Active lisinopril (PRINIVIL,ZESTRIL ) 5 MG tablet Take 5 mg by mouth daily. Active cholecalciferol (VITAMIN D3) 2,000 unit capsule Take 1,000 Units by mouth daily. Active silver sulfADIAZINE (SILVADENE) 1 % cream Apply topically 2 (two) times a day. 400 g 1 Active Active Problems Problem Noted Date Diagnosed Date Malignant neoplasm of lower- outer quadrant of right breast of female, estrogen receptor positive 07/18/2021 Family History Medical History Relation Comments Cancer Maternal Aunt Relation Status Comments Maternal Aunt Alive Social History Tobacco Use Types Packs/Day Years Used Date Smoking Tobacco: Never Smokeless Tobacco: Never Education Answer Date Recorded Are you interested in more education? Not on mark e 07/28/2022 Are you concerned about learning? Not on file 07/28/2022 No 07/28/2022 No 07/28/2022 Digital Access Answer Date Recorded No 08/26/2022 No 08/26/2022 No 08/26/2022 Reliable internet access at home? Not on file 08/26/2022 Device with a working camera? Not on file Comments Unknown Sex and Gender Information Value Date Recorded Sex Assigned at Not on file Legal Sex Female 11:13 AM EDT Gender Identity Not on file Sexual Orientation Not on file Last Filed Vital Signs Vital Sign Reading Time Taken Comments Blood Pressure 111/78 08/29/2021 1:46 PM EDT Pulse 75 08/29/2021 1:46 PM EDT Temperature - - Respiratory Rate 16 08/29/2021 1:46 PM EDT Oxygen Saturation 97% 08/29/2021 1:46 PM EDT Inhaled Oxygen Concentration - - Weight 86.8 kg (191 lb 4.8 oz) 08/29/2021 1:46 P M EDT Height - - Body Mass Index - - Plan of Treatment Health Maintenance Due Date Last Done Comments CREATININE LEVEL 1961 LIPID PANEL 1961 POTASSIUM LEVEL 1961 DEPRESSION SCREENING 1973 HEPATITIS C SCREENING 1979 HIV ONE-TIME SCREENING (18-65 YEARS) 1979 PNEUMOCOCCAL VACCINES (50+ years) (1 of 2 - PCV) 1980 ZOSTER VACCINES (1 of 2) 1980 PAP SMEAR 1982 SMOKING STATUS SCREENING (Once After 26 Yrs) 1987 COLOGUARD 2006 COLONOSCOPY 2006 COLORECTAL CANCER SCREENING 2006 FIT TEST 2006 FOBT 2006 SIGMOIDOSCOPY 2006 VIRTUAL COLONOSCOPY 2006 MAMMOGRAM 06/06/2023 06/05/2021, 05/02, 05/16/2021, Additional history exists INFLUENZA VACCINE (#1) 2024 , 01/14/2019, 01/09/2017, Additional history exists COVID-19 VACCINE ( - 2024- season) 2024 Adult Td,Tdap Booster 01/09/2026 01/10/2016 RSV VACCINE (1 - 1-dose 75+ series) 2036 HEPATITIS A VACCINES Aged Out No long er eligible based on patient's age to complete this topic HIB VACCINES Aged Out No longer eligi ble based on patient's age to complete this topic MENINGOCOCCAL VACCINES (ACWY) Aged Out No longer eligible based on patient's age to complete this topic MENINGOCOCCAL VACCINES (B) Aged Out N o longer eligible based on patient's age to complete this topic Medical Devices Not on file Procedures Procedure Name Priority Date/Time Associated Diagnosis Comments BI MAMMOGRAM OUTSIDE (NO INTERPRETATION) Routine 06/05/2021 12:00 AM EST from Last 3 Months or Most Recently Relevant to Health Maintenance Results * Mammogram Outside (No Interpretation) (06/05/2021 12:00 AM EST) Narrative SYSTEMGENERATED, DOCUMENTATION - 06/29/2021 7:22 AM EDT This study is for PACS storage only and not for interpretation. us Provider Not In System PhD IMG OUTSIDE IMAGING W /OUT INTERPRETATION Final Result from Last 3 Months or Most Recently Relevant to Health Maintenance Insurance [facility] Care Teams Bookkeeping Assistant Relationship Specialty Start Date End Date Zelalem Jones MD [address] [place] [address] [address] [place] [address] PCP - General Internal Medicine 06/23/21 Additional Source Comments The information contained in this document represents components of the legal health record. It is not the complete legal health record.[facility]
--- OUTSIDE RECORDS SUMMARY | 2025-03-04 10:57 | XMS_ITS | Encounter Summary ---
Author Organization [facility] Address [address] [facility] [address] [place] [address] Phone Care Team Providers Care Invoice Coder Name Role Phone Zelalem Jones MD Primary Care Provider [phone] Encounter Details Date Type Department Care Team (Late st Contact Info) Description 06/29/2021 Ancillary Orders [facility],Outside Imaging [address] [place] [address] System, Provider Not In, [facility] [address] [address] Social History Tobacco Use Types Packs/Day Years [...] Results * US Breast Outside (No Interpretation) (05/19/2021 12:00 AM EST) Narrative SYSTEMGENERATED, DOCUMENTATION - 06/29/2021 7:24 AM EDT This study is for PACS storage only and not for interpretation. us Provider Not In System PhD IMG OUTSIDE IMAGING W /OUT INTERPRETATION Final Result documented in this encounter Visit Diagnoses Not on filedocumented in this encounter Care Teams Invoice Coder Relationship Specialty Start Date End Date Zelalem Jones MD [address] [place] [address] Dr Senior BHARAT ARANA [id number] PCP - General Internal Medicine 06/23/21 documented as of this encounter Additional Source Comments The information contained in this document represents components of the legal health record. It is not the complete legal health record.[facility]
--- OUTSIDE RECORDS SUMMARY | 2025-03-04 10:57 | XMS_ITS | Encounter Summary ---
Author Organization [facility] Address [address] [facility] [address] [place] [address] Phone Care Team Providers Care Construction Ironworker Helper Name Role Phone Zelalem Jones MD Primary Care Provider [phone] Encounter Details Date Type Department Care Team (Late st Contact Info) Description 06/29/2021 Ancillary Orders [facility],Outside Imaging [address] [place] [address] System, Provider Not In, [facility] [address] [address] Social History Tobacco Use Types Packs/Day Years [...] encounter Results * Mammogram Outside (No Interpretation) (05/19/2021 12:05 AM EST) Narrative SYSTEMGENERATED, DOCUMENTATION - 06/29/2021 7:25 AM EDT This study is for PACS storage only and not for interpretation. us Provider Not In System PhD IMG OUTSIDE IMAGING W /OUT INTERPRETATION Final Result documented in this encounter Visit Diagnoses Not on filedocumented in this encounter Care Teams Construction Ironworker Helper Relationship Specialty Start Date End Date Zelalem Jones MD [address] [place] [address] Dr Senior BHARAT ARANA [id number] PCP - General Internal Medicine 06/23/21 documented as of this encounter Additional Source Comments The information contained in this document represents components of the legal health record. It is not the complete legal health record.[facility]
--- OUTSIDE RECORDS SUMMARY | 2025-03-04 10:57 | XMS_ITS | Encounter Summary ---
Author Organization [facility] Address [address] [facility] [address] [place] [address] Phone Care Team Providers Care Bindery Operator Name Role Phone Zelalem Jones MD Primary Care Provider [phone] Encounter Details Date Type Department Care Team (Late st Contact Info) Description 06/29/2021 Ancillary Orders [facility],Outside Imaging [address] [place] [address] System, Provider Not In, [facility] [address] [address] Social History Tobacco Use Types Packs/Day Years [...] encounter Results * Mammogram Outside (No Interpretation) (05/16/2021 12:00 AM EST) Narrative SYSTEMGENERATED, DOCUMENTATION - 06/29/2021 7:25 AM EDT This study is for PACS storage only and not for interpretation. us Provider Not In System PhD IMG OUTSIDE IMAGING W /OUT INTERPRETATION Final Result documented in this encounter Visit Diagnoses Not on filedocumented in this encounter Care Teams Bindery Operator Relationship Specialty Start Date End Date Zelalem Jones MD [address] [place] [address] Dr Senior BHARAT ARANA [id number] PCP - General Internal Medicine 06/23/21 documented as of this encounter Additional Source Comments The information contained in this document represents components of the legal health record. It is not the complete legal health record.[facility]
== END 2025-03-04 10:45 | disposition home or self-care (01) ==
LOC: HO.HWSM 09:37
PROVIDERS: PCP Internal Medicine; Visit Provider Advanced Practice Midwife
DX: Z01.419 Encounter for gynecological examination (general) (routine) without abnormal findings (principal); C50.911 Malignant neoplasm of unspecified site of right female breast; M25.561 Pain in right knee; Z68.33 Body mass index [BMI] 33.0-33.9, adult; E66.9 Obesity, unspecified; R25.2 Cramp and spasm; M25.562 Pain in left knee
CPT/HCPCS: 99396

== ENCOUNTER → 2025-03-04 09:37 | Outpatient (BNVA) | payer MEDICAID, SELFPAY | PROVIDERS: PCP Internal Medicine; Visit Provider Advanced Practice Midwife | DX: Z01.419 Encounter for gynecological examination (general) (routine) without abnormal findings (principal); C50.911 Malignant neoplasm of unspecified site of right female breast; E66.9 Obesity, unspecified; M25.561 Pain in right knee; M25.562 Pain in left knee; R25.2 Cramp and spasm; Z68.33 Body mass index [BMI] 33.0-33.9, adult | CPT/HCPCS: 99396 ==

== ENCOUNTER 2025-03-16 08:39 | Outpatient (AMB) | payer MEDICAID, SELFPAY ==
--- NOTE | 2025-03-16 08:44 | A.OFFVIS_ITS ---
Vital Signs 3 03/16/25 08:45 Height 5 ft 3 in Weight 192 lb 8 oz BMI 34.1 Intake Visit Reasons: 6 month follow up breast exam Intake Note: Patient is seen in office for 6 month follow up visit breast exam. Pt c/o: no breast complaints at this time. mm sched:06/03/24 @11:45 am Feed Crusher Required: No Accompanied by: Self / Same As Patient Allergies aspirin (ASPIRIN) Allergy (Mild, Verified 03/16/25 08:55) GI UPSET, Stomach upset morphine (Morphine) Allergy (Mild, Verified 03/16/25 08:55) VOMITING Medication List - Last Reconciled 03/16/25 by Simón Mccarty MD cholecalciferol (vitamin D3) (Vitamin D3) 25 mcg PO DAILY diclofenac sodium 3% 1 appl topical BID PRN ibuprofen 600 mg PO Q8H PRN letrozole 2.5 mg PO DAILY lisinopril 5 mg PO DAILY 90 days loratadine (Claritin) 10 mg PO DAILY PRN multivitamin 1 tab PO DAILY HPI Comments Details: 64-year-old female patient returning for follow-up breast examination following right breast lumpectomy with needle localization and sentinel node biopsy right axilla on 06/05/2021. She was found to have an ill-defined density by ultrasound and underwent ultrasound-guided core biopsy which revealed a grade 1 invasive ductal carcinoma, ER/AR positive, HER2 Fanny negative, Ki-67 5-10%. She has no previous history of breast surgery and her family history is significant for distant aunt with breast cancer. She is breastfed her children. 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 Oncotype testing was 4. (pT1c N0). She completed radiation therapy on 09/12/2021 and was evaluated by Dr. Johnson who started letrozole. She is tolerating this well and the plan is to continue for 5 years. Her last mammogram dated 05/28/2024 revealed no significant changes and no mammographic evidence of malignancy (BI-RADS 2). She feels well and denies any new breast symptoms except for occasional sharp pain when raising her right arm. [facility] Medical History Osteopenia Breast cancer Obesity (BMI 30-39.9) Vitamin D deficiency Pure hypercholesterolemia Benign essential hypertension Surgical History History of lumpectomy of right breast (06/05/21) Status post colonoscopy (~10/22/11) History of carpal tunnel release History of cholecystectomy Family History Father Medical history unknown Mother Diabetes Hypertension Maternal Aunt Breast cancer Social History Household Members: Family and Other Household Members Other:: Grandchildren 3 Housing: House Are you a primary hospice spiritual care coordinator to a significant other at home: No Do you presently have visiting nurse or other home services: No Alcohol intake: current Alcohol intake frequency: holidays/special occasions only Alcohol type: wine Patient Tobacco Use Status: Never used Tobacco e-Cigarette/Vaping Use: Never Used Second Hand Smoke Exposure: No service: No Current occupational status: employed 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 Current occupational exposures/hazards: No Gender identity: Female Cognitive needs: No Hearing needs: No Vision needs: No Female Reproductive History Menstrual Age of Menarche: 12 Review of Systems Const All systems reviewed & are unremarkable except as noted in HPI and below Physical Exam Vital Signs: BMI result Body Mass Index 34.1 Const General: cooperative and no acute distress Nutritional Appearance: well nourished Orientation/consciousness: patient oriented x3 Limitations: no limitations Neck Neck: Yes normal visual inspection and Yes no lymphadenopathy Chest Other: Right breast incisions are clean, dry, and intact without redness or discharge. Continued mild especially residual radiation change noted, especially around the nipple. No palpable mass, new skin change, nipple discharge or enlarged lymph nodes. Left breast reveals no skin change, nipple discharge, nipple retraction, palpable mass or enlarged lymph nodes. Chest/axillae images: 2 1. 2. Resp Effort & Inspection: normal respiratory effort, no audible wheezes, no cough and no respiratory distress Skin Other: warm, dry, no rash Neuro Other: Mobility Assessment: 6 1. 3 meter assessment time (seconds) 2. Gait observations: Normal balance and gait General: patient oriented x3 Extrem Other: no peripheral edema Assessment & Plan Assessment & Plan (1) Invasive ductal carcinoma of right breast: Code(s): C50.911 - Malignant neoplasm of unspecified site of right female breast Category: Medical Plan 64-year-old female patient returning for follow-up breast examination. She has a prior history of infiltrating ductal carcinoma of the right breast, s/p right breast lumpectomy with sentinel node biopsy on 06/05/2021. Pathology revealed a 1.4 cm invasive ductal carcinoma, ER/AR positive, HER2 Fanny negative with negative margins, 0 of 8 sentinel lymph nodes with metastatic disease (pT1cNo). She completed radiation therapy on 09/02/2021 and is now on letrozole (Alex). Today's examination revealed a well-healed incision in the right breast with no evidence of recurrent disease in either breast. Her most recent mammogram dated 05/28/2024 revealed no mammographic evidence of malignancy (BI-RADS 2). A 1 year follow-up diagnostic mammogram is scheduled for 06/03/2025. I recommended she return approximately 6 months for follow-up examination, sooner p.r.n.. Coding Level of Care Code Est Pt Level 3 (78146) Add On Problem Visit Only Diagnoses Invasive ductal carcinoma of right breast C50.911
[2025-03-16 08:45] VITALS: BMI 34.1
--- OUTSIDE RECORDS SUMMARY | 2025-03-16 09:18 | XMS_ITS | Clinical Summary ---
Author Organization [employer] Address [address] [facility] [address] [place] [address] Care Team Providers Care Hydrogeology Professor Name Role Phone Unavailable Primary Care Provider [...]
--- OUTSIDE RECORDS SUMMARY | 2025-03-16 09:18 | XMS_ITS | Encounter Summary ---
Author Organization [employer] [facility] Address [address] [facility] [address] [place] [address] Care Team Providers Care Dinkey Locomotive Operator Name Role Phone Unavailable Primary Care Provider Unavailabl e Encounter Details Date Type Department Care Team (Latest Contact Info) Description 08/27/2018 Abstract [facility] CONVERSIONS Dental, Provider, DDS Social History Tobacco [...]
== END 2025-03-16 09:45 | disposition home or self-care (01) ==
PROVIDERS: PCP Internal Medicine; Visit Provider Surgery
DX: C50.911 Malignant neoplasm of unspecified site of right female breast (principal)
CPT/HCPCS: 99213

== ENCOUNTER → 2025-03-16 08:39 | Outpatient (BNVA) | payer MEDICAID, SELFPAY | PROVIDERS: PCP Internal Medicine; Visit Provider Surgery | DX: C50.911 Malignant neoplasm of unspecified site of right female breast (principal); Z17.1 Estrogen receptor negative status [ER-] | CPT/HCPCS: 99212 ==